=== PATIENT | male | born 1950 | race Caucasian/White ===

== ENCOUNTER → 2017-09-28 | Outpatient (CLI) | payer OTHER, MEDICARE ==
[~2017-09-28] MED LIST: GABA-113 PO; LEVO150T PO; LISI20TA3 PO; MELO-84 PO; OMEG10007 PO; PANT40TA PO; PERFLUTREN LIPID MICROSPHERE (DEFINITY) IV ONE; THEO1TAB3 PO
--- NOTE | 2017-09-28 17:06 | ECHOCARDIOGRAM REPORT ---
*NOTICE TO RECEIVING [employer]Y This information is strictly Confidential and protected under [place] law. [place] law prohibits you from making any further disclosure of this information unless further disclosure is expressly permitted by the written consent of the person to whom it pertains or is authorized by law. A general authorization for the release of medical or other information is not sufficient for this purpose. Hospital accepts no responsibility if the information is made available to any other person, INCLUDING THE PATIENT. Interpretation Summary * Name: ABHIJIT ARZOLA Study Date: 09/28/2017 12:45 PM BP: 158/77 mmHg * Patient Location: [facility] HR: 65 * : 1950 (M/d/yyyy) Gender: Male Height: 71 in * Age: 67 yrs Ethnicity: CA Weight: 300 lb * Ordering Physician: Pop Shepherd * Referring Physician: Pop Shepherd * Performed By: Mili Horn RDCS * * Reason For Study: Shortness of breath * BSA: 2.5 m2 * -- Conclusions -- * Technically difficult study despite use of Definity ultrasound contrast. * 1. Normal LV size. LVEF 60-65%. No apparent wall motion abnormalities. * 2. RV not well visualized. Size appears grossly normal. * 3. No significant valvular pathology. * 4. TR/IVC not visualized to estimate RA/PA pressures. * 5. No prior studies for comparison. Procedure Details * A complete two-dimensional transthoracic echocardiogram was performed (2D, M-mode, Doppler and color flow Doppler). * A contrast injection of Definity was performed to improve assessment of LV function. * Contrast was injected into an intravenous site in the left arm. * One vial of Definity ultrasound contrast was diluted in normal saline to a total volume of 10 ml. A total of '2' ml of solution was administered during imaging. * Lot # [id number] of Definity utilized for procedure. * Expiration date 1 NOV 22. * The attending nurse who injected the contrast agent was Jennifer Castillo RN. * The study was technically limited. * The study was technically difficult. * There were technical limitations due to patient'sPoor acoustic windows secondary to severe lung disease. Left Ventricle * The left ventricle is grossly normal size. * Ejection Fraction = 60-65%. * No regional wall motion abnormalities noted. Right Ventricle * The right ventricle is not well visualized. * The right ventricle is grossly normal size. * The right ventricular systolic function is qualitatively normal. Atria * The left atrial size is normal. * Right atrium not well visualized. * Right atrial size is normal. * No ASD detected; PFO is not assessed. Mitral Valve * The mitral valve is grossly normal. * There is no mitral valve stenosis. * Significant mitral regurgitation is absent. Tricuspid Valve * The tricuspid valve is not well visualized. * No tricuspid regurgitation. Aortic Valve * The aortic valve is not well visualized. * No hemodynamically significant valvular aortic stenosis. * There is no significant aortic regurgitation. Pulmonic Valve * The pulmonic valve is not well visualized. * Pulmonic stenosis is absent. * There is no significant pulmonary regurgitation. Great Vessels * The aortic root and proximal ascending aorta are normal sized. Pericardium/Pleural * Trivial pericardial effusion MMode 2D Measurements and Calculations Ao root diam 3.2 cm Ao root area 8.1 cm\S\2 ACS 2.3 cm asc Aorta Diam 3.2 cm LVOT diam 2.0 cm LVOT area 3.2 cm\S\2 LVAd ap4 28.0 cm\S\2 LVLd ap4 7.5 cm EDV(MOD-sp4) 82.7 ml EDV(sp4-el) 88.0 ml LVAs ap4 13.0 cm\S\2 LVLs ap4 5.9 cm ESV(MOD-sp4) 23.5 ml ESV(sp4-el) 24.6 ml EF(MOD-sp4) 71.6 % EF(sp4-el) 72.0 % LVAd ap2 26.6 cm\S\2 LVLd ap2 7.3 cm EDV(MOD-sp2) 78.1 ml EDV(sp2-el) 82.7 ml LVAs ap2 14.3 cm\S\2 LVLs ap2 6.6 cm ESV(MOD-sp2) 26.1 ml ESV(sp2-el) 26.1 ml EF(MOD-sp2) 66.5 % EF(sp2-el) 68.4 % LVLd %diff -3.60 % EDV(MOD-bp) 82.3 ml LVLs %diff 11.3 % ESV(MOD-bp) 26.2 ml EF(MOD-bp) 68.1 % SV(MOD-sp4) 59.2 ml SI(MOD-sp4) 23.6 ml/m\S\2 SV(MOD-sp2) 51.9 ml SI(MOD-sp2) 20.7 ml/m\S\2 SV(MOD-bp) 56.1 ml SI(MOD-bp) 22.4 ml/m\S\2 SV(sp4-el) 63.3 ml SI(sp4-el) 25.3 ml/m\S\2 SV(sp2-el) 56.6 ml SI(sp2-el) 22.6 ml/m\S\2 Doppler Measurements and Calculations MV E max lavon 55.5 cm/sec MV A max lavon 75.8 cm/sec MV E/A 0.73 MV dec time 0.25 sec Ao V2 max 106.4 cm/sec Ao max PG 4.5 mmHg Ao max PG (full) 1.3 mmHg BEREKET(V,A) 2.7 cm\S\2 BEREKET(V,D) 2.7 cm\S\2 LV V1 max PG 3.3 mmHg LV V1 max 90.2 cm/sec PA V2 max 85.4 cm/sec PA max PG 2.9 mmHg PA acc slope 694.0 cm/sec\S\2 PA acc time 0.11 sec PA pr(Accel) 29.0 mmHg
== END | disposition home or self-care (01) ==
LOC: C.CPL 12:40
PROVIDERS: ATTEND Internal Medicine Critical Care Medicine
DX: R06.02 Shortness of breath (principal)

== ENCOUNTER 2018-09-29 21:30 | Inpatient (IN) ==
[~2018-09-29 21:30] MED LIST changes: +ALBUT/IPRATROP 3MG/0.5MG NEB 3 ML VIAL ONE; -GABA-113 PO; -LEVO150T PO; -LISI20TA3 PO; -MELO-84 PO; -OMEG10007 PO; +OSELTAMIVIR PHOSPHATE 75 MG CAP ONE; -PANT40TA PO; -PERFLUTREN LIPID MICROSPHERE (DEFINITY) IV ONE; -THEO1TAB3 PO
[2018-09-29] MEDS ORDERED: ALBUT/IPRATROP 3MG/0.5MG NEB 3 ML VIAL NEB STA (21:42)
[2018-09-29] MEDS ORDERED: SODIUM CHLORIDE 0.9% 1000ML 500 ML IV ONE (21:44)
[2018-09-29 22:06] LABS: Basophils # (auto) 0.02 K/uL (0-0.2); Basophils % (auto) 0.4 %; Eosinophils # (auto) 0.01 K/uL (0-0.5); Eosinophils % (auto) 0.2 %; Hematocrit (blood only) 41.6 % (42-52); Hemoglobin 13.8 g/dL (14.0-18.0); Immature Granulocytes # (auto) 0.01 K/uL (0.00-0.02); Immature Granulocytes % (auto) 0.2 %; Lymphocytes # (auto) 1.04 K/uL (1.2-3.4); Lymphocytes % (auto) 22.3 %; Mean Corpuscular Hgb Conc 33.2 g/dL (32-36); Mean Corpuscular Volume 86.3 fL (80-100); Mean Platelet Volume 9.2 fL (7.4-10.4); Monocytes # (auto) 1.11 K/uL (0.11-0.59); Monocytes % (auto) 23.8 %; Neutrophils # (auto) 2.48 K/uL (1.4-6.5); Neutrophils % (auto) 53.1 %; Platelet Count 146 K/uL (130-400); RDW Coefficient of Variation 14.5 % (11.5-14.5); RDW Standard Deviation 45.8 fL (36.4-46.3); Red Blood Count 4.82 M/uL (4.7-6.1); White Blood Count 4.67 K/uL (4.8-10.8)
[2018-09-29] MEDS ORDERED: PIPERACILL/TAZOBAC CONSULT ACTIVE PRN (22:09)
[2018-09-29] MEDS ORDERED: PIPERACILLIN/TAZOBACTAM 4.5 GM/120 ML BAG IV ONE (22:09)
--- NOTE | 2018-09-29 22:09 | Emergency Department Note ---
History of Present Illness General Chief complaint: Shortness of Breath/Dyspnea Stated complaint: sob on o2, bacteria in blood History of Present Illness Maximum Pain Intensity: 0 This 68-year-old presents to the ER complaining of fever, dyspnea, cough with positive flu a and a positive blood culture from yesterday's visit Location: Generalized Quality: Aching Severity: Moderate Duration: Past few days Timing: Past few days Context: Symptoms got worse and patient had a positive blood culture and came back Modifying factors: better with nothing; worse with activity Patient denies of subjective fever and chills. No temperature was taken. He did not receive the flu vaccine. Patient denies chest pain, abdominal pain, vomiting, diarrhea. He is tolerating p.o. fluids. He chronically wears 3 L of O2. 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 Patient is willing to stay in the hospital. No history of CHF. No prior heart disease per patient. Home Medications Home Medications Medication Instructions Recorded Confirmed Type albuterol sulfate 2.5 mg INH Q6H PRN #90 ml 09/28/18 09/29/18 Rx gabapentin 300 mg PO AMHS 09/28/18 09/29/18 History levothyroxine 150 mcg PO DAILY 09/28/18 09/29/18 History lisinopril 20 mg PO DAILY 09/28/18 09/29/18 History meloxicam [Mobic] 15 mg PO DAILY 09/28/18 09/29/18 History oseltamivir [Tamiflu] 75 mg PO BID 5 Days #10 cap 09/28/18 09/29/18 Rx pantoprazole [Protonix] 40 mg PO DAILY 09/28/18 09/29/18 History theophylline [Ashutosh-24] 100 mg PO Q12 09/28/18 09/29/18 History Allergies Allergy/AdvReac Type Severity Reaction Status Date / Time codeine AdvReac Intermediate CHEST PAIN Verified 09/29/18 22:02 Past Med/Surg History Medical History GERD (gastroesophageal reflux disease) Peripheral neuropathy Hypertension Hypothyroidism COPD (chronic obstructive pulmonary disease) Diaphragm dysfunction Social History Feels Safe at Home: Yes Smoking Status: Former smoker Review of Systems All systems reviewed & are unremarkable except as noted in HPI & below Physical Exam Vital Signs Vital Signs - 24 hr 09/29/18 21:32 09/29/18 22:18 Temperature 36.6 C Temperature Source Oral Sepsis Recent Fever Within 48 Hours No Sepsis Action Taken by Nursing No Action Required Pulse Rate 95 H Pulse Rate [Right Finger] 87 Respiratory Rate 20 18 Respiratory Effort / Characteristics Non-Labored Respiratory Depth Normal Blood Pressure 129/84 Blood Pressure [Right Arm] 147/113 H Blood Pressure Mean 99 Blood Pressure Mean [Right Arm] 124 Pulse Oximetry 91 96 Oxygen Delivery Method Nasal Cannula Oxygen Flow Rate 3 VITALS: Vitals are noted on the nurse's note and reviewed by myself. Vital signs 91% O2 on 3 L. GENERAL: White male ill-appearing, wearing oxygen and coughing SKIN: The skin was without rashes, erythema, edema, or bruising. There is no tenting of the skin. Capillary reflex less than 2 seconds. HEAD: Normocephalic atraumatic. EARS: External auditory canals clear, tympanic membranes pearly mcmullen without erythema or effusion bilaterally. EYES: Pupils equal round and reactive to light and accommodation. Conjunctivae without injection, sclerae without icterus. Extraocular movements intact. NOSE: Patent, turbinates without inflammation or discharge. No sinus tenderness. MOUTH: Mucous membranes moist. Pharynx without erythema or exudate. Uvula midline. Airway patent. Tongue does not deviate. NECK: Supple without nuchal rigidity. No lymphadenopathy. No thyromegaly. Cervical spine is nontender. No JVD. HEART: Regular rate and rhythm LUNGS: Mild diffuse end expiratory wheezes, without rales or rhonchi. No retractions or accessory muscle use. ABDOMEN: Positive bowel sounds x 4. Normal tympanic percussion. Soft, nontender, without masses or organomegaly. Mars sign negative. No guarding or rebound tenderness. No CVA tenderness MUSCULOSKELETAL: No muscle atrophy, erythema, noted. NEURO: Patient was alert and oriented to person place and time. Normal sensation to light and sharp touch. No focal neurological deficits. Course Administered Medications Discontinued Medications Albuterol (Duoneb) 3 ml NEB NOW STA Stop: 09/29/18 21:43 Last Admin: 09/29/18 22:05 Dose: 3 ml Sodium Chloride (Nss 1000ml) 500 mls @ 999 mls/hr IV .Q31M ONE Stop: 09/29/18 22:14 Last Infusion: 09/29/18 22:43 Dose: 0 mls/hr Admin: 09/29/18 22:05 Dose: 999 mls/hr Piperacillin Sod/Tazobactam Sod (Zosyn) 4.5 gm in 120 mls @ 240 mls/hr IV NOW ONE Stop: 09/29/18 22:38 Last Infusion: 09/29/18 22:47 Dose: 0 mls/hr Admin: 09/29/18 22:17 Dose: 240 mls/hr Medical Decision Making Medical Records Attestation: I reviewed the patient's medical records. Home Medications Current Medication List: was personally reviewed by me Laboratory Data Attestation: I reviewed the patient's lab results. Result diagrams: 09/29/18 21:50 09/29/18 21:50 Lab Results 09/29/18 09/29/18 09/29/18 Range/Units 21:50 21:50 21:50 WBC 4.67 L (4.8-10.8) K/uL RBC 4.82 (4.7-6.1) M/uL Hgb 13.8 L (14.0-18.0) g/dL Hct 41.6 L (42-52) % MCV 86.3 (80-100) fL MCH 28.6 (25-34) pg MCHC 33.2 (32-36) g/dL RDW Std Deviation 45.8 (36.4-46.3) fL RDW Coeff of Valdemar 14.5 (11.5-14.5) % Plt Count 146 (130-400) K/uL MPV 9.2 (7.4-10.4) fL Immature Gran % (Auto) 0.2 % Neut % (Auto) 53.1 % Lymph % (Auto) 22.3 % [place]oula % (Auto) 23.8 % Eos % (Auto) 0.2 % Baso % (Auto) 0.4 % Immature Gran # (Auto) 0.01 (0.00-0.02) K/uL Neut # (Auto) 2.48 (1.4-6.5) K/uL Lymph # (Auto) 1.04 L (1.2-3.4) K/uL [place] # (Auto) 1.11 H (0.11-0.59) K/uL Eos # (Auto) 0.01 (0-0.5) K/uL Baso # (Auto) 0.02 (0-0.2) K/uL PT 11.1 (9.0-12.0) Seconds INR 1.1 (0.9-1.1) APTT 29.1 (21.0-31.0) Seconds PTT Ratio 1.1 Sodium 134 L (136-145) mmol/L Potassium 3.5 (3.5-5.1) mmol/L Chloride 98 (98-107) mmol/L Carbon Dioxide 26 (21-32) mmol/L Anion Gap 10.0 (3-11) BUN 13 (7-18) mg/dl Creatinine 0.96 (0.6-1.4) mg/dl Est Cr Clr Drug Dosing 104.6 ml/min Est GFR ( Amer) 95.1 Est GFR (Non-Af Amer) 82.0 BUN/Creatinine Ratio 13.5 (10-20) Glucose 105 H (70-99) mg/dl POC Lactic Acid Rinku (0.90-1.70) mmol/L Calcium 8.3 L (8.5-10.1) mg/dl Magnesium 2.0 (1.8-2.4) mg/dl Total Bilirubin 0.5 (0.1-1) mg/dl AST 18 (15-37) U/L ALT 23 (12-78) U/L Alkaline Phosphatase 41 L (45-117) U/L Total Creatine Kinase 217 (39-308) U/L Troponin I < 0.015 (0-0.045) ng/ml Total Protein 7.0 (6.4-8.2) gm/dl Albumin 3.5 (3.4-5.0) gm/dl Globulin 3.5 (2.5-4.0) gm/dl Albumin/Globulin Ratio 1.0 (0.9-2) TSH 1.380 (0.300-4.500) uIu/ml 09/29/18 Range/Units 21:54 WBC (4.8-10.8) K/uL RBC (4.7-6.1) M/uL Hgb (14.0-18.0) g/dL Hct (42-52) % MCV (80-100) fL MCH (25-34) pg MCHC (32-36) g/dL RDW Std Deviation (36.4-46.3) fL RDW Coeff of Valdemar (11.5-14.5) % Plt Count (130-400) K/uL MPV (7.4-10.4) fL Immature Gran % (Auto) % Neut % (Auto) % Lymph % (Auto) % [place]oul[place] % (Auto) % Eos % (Auto) % Baso % (Auto) % Immature Gran # (Auto) (0.00-0.02) K/uL Neut # (Auto) (1.4-6.5) K/uL Lymph # (Auto) (1.2-3.4) K/uL [place] # (Auto) (0.11-0.59) K/uL Eos # (Auto) (0-0.5) K/uL Baso # (Auto) (0-0.2) K/uL PT (9.0-12.0) Seconds INR (0.9-1.1) APTT (21.0-31.0) Seconds PTT Ratio Sodium (136-145) mmol/L Potassium (3.5-5.1) mmol/L Chloride (98-107) mmol/L Carbon Dioxide (21-32) mmol/L Anion Gap (3-11) BUN (7-18) mg/dl Creatinine (0.6-1.4) mg/dl Est Cr Clr Drug Dosing ml/min Est GFR ( Amer) Est GFR (Non-Af Amer) BUN/Creatinine Ratio (10-20) Glucose (70-99) mg/dl POC Lactic Acid Rinku 0.87 L (0.90-1.70) mmol/L Calcium (8.5-10.1) mg/dl Magnesium (1.8-2.4) mg/dl Total Bilirubin (0.1-1) mg/dl AST (15-37) U/L ALT (12-78) U/L Alkaline Phosphatase (45-117) U/L Total Creatine Kinase (39-308) U/L Troponin I (0-0.045) ng/ml Total Protein (6.4-8.2) gm/dl Albumin (3.4-5.0) gm/dl Globulin (2.5-4.0) gm/dl Albumin/Globulin Ratio (0.9-2) TSH (0.300-4.500) uIu/ml MDM Narrative Prior records/ancillary studies reviewed. Triage Nursing notes reviewed. Additional history obtained from the family. The patient's history was concerning for respiratory difficulties. Differential diagnosis: Etiologies such as infections, reactive airway disease, pneumonia, pneumothorax , COPD, CHF, cardiac ischemia, pulmonary embolism, musculoskeletal, gastrointestinal, as well as others were entertained. Physical examination: As above. ER treatment provided: Nebulizer, IV fluids On reassessment the patient felt better. Diagnostic interpretation by me: The electrocardiogram was negative for acute ischemic or pathologic change. Normal sinus, normal intervals, no acute ST-T wave changes. Impression normal sinus rhythm interpreted by myself I think arrhythmia is unlikely. EKG shows normal sinus rhythm with no interval abnormalities such as QT prolongation or WPW. There are no findings to suggest Brugada syndrome. Cardiac monitoring in the emergency department reveals no tachycardic or bradycardic dysrhythmia. Hypertrophic cardiomyopathy was considered but there are no clear historical elements pointing toward this. EKG is not suggestive. The QRS voltage is not extremely large and there are no suggestive Q waves. The labs revealed negative lactic acid. Stable H&H Patient had a positive blood culture gram positive cocci. Repeat cultures were drawn. The other blood culture was negative. Imaging studies: XR chest 1V portable HISTORY: Sepsis COMPARISON: Chest 09/28/2018. FINDINGS: No pneumothorax. Stable elevation of the left hemidiaphragm with left basilar linear densities suggesting atelectasis. The lungs are otherwise clear. The heart remains stable in size. No new focal lung consolidations. No evidence for pulmonary edema. IMPRESSION: No significant change compared to the prior study. No acute process. Chronic elevation of the left hemidiaphragm is again noted. Electronically signed by: Vijay Garcia M.D. 09/29/2018 10:16 PM Consultation: A consultation was placed with Dr. Morales, hospitalist. The case was discussed and diagnostics were reviewed. The patient was evaluated in the ER for further treatment. This appears to be consistent with influenza A with possible positive blood culture. Patient will be evaluated by medicine. Repeat cultures were drawn. He was medicated as above. He is agreeable treatment plan of admission. By the evaluation outlined above emergent etiologies such as CHF, cardiac ischemia , pulmonary embolism, reactive airway disease, pneumothorax, musculoskeletal, serious bacterial infections, as well as others were deemed relatively unlikely. The pt informed about the findings as listed above. All questions were answered and pleased with the treatment. Case reviewed with my attending The chart was completed utilizing [employer] Speech voice recognition software. Grammatical errors, random word insertions, pronoun errors, and incomplete sentences are an occassional consequence of this system due to software limitations, ambient noise, and hardware issues. Any formal questions or concerns about the content, text, or information contained within the body of this dictation should be directly addressed to the physician executive assistant for clarification. Impression & Plan Influenza A, Positive blood culture Discharge Plan Visit Data Chief Complaint: Shortness of Breath/Dyspnea Stated Complaint: sob on o2, bacteria in blood ED Provider: Luis Srivastava ED Midlevel Provider: Juliet Mckeon Discharge Problem: Influenza A, Positive blood culture Patient Disposition: Being Evaluated by Hospitalist Condition: Fair Forms Stand Alone Forms: My [facility] Prescriptions Prescriptions: No Action meloxicam [Mobic] 15 mg Tablet 15 mg PO DAILY RF: 0 lisinopril 20 mg Tablet 20 mg PO DAILY RF: 0 theophylline [Ashutosh-24] 100 mg Capsule,Extended Release 24hr 100 mg PO Q12 RF: 0 pantoprazole [Protonix] 40 mg Tablet,Delayed Release (Dr/Ec) 40 mg PO DAILY RF: 0 levothyroxine 150 mcg Tablet 150 mcg PO DAILY RF: 0 gabapentin 300 mg Capsule 300 mg PO AMHS RF: 0 oseltamivir [Tamiflu] 75 mg capsule 75 mg PO BID 5 Days Qty: 10 RF: 0 albuterol sulfate 2.5 mg /3 mL (0.083 %) solution for nebulization 2.5 mg INH Q6H PRN (Reason: bronchospasm) Qty: 90 RF: 0 Referrals Referrals: Jovanna Carson [Primary Care Provider] -
--- NOTE | 2018-09-29 22:17 | XRay Report ---
XR chest 1V portable HISTORY: Sepsis COMPARISON: Chest 09/28/2018. FINDINGS: No pneumothorax. Stable elevation of the left hemidiaphragm with left basilar linear densit ies suggesting atelectasis. The lungs are otherwise clear. The heart remains stable in size. No new f ocal lung consolidations. No evidence for pulmonary edema. IMPRESSION: No significant change compared to the prior study. No acute process. Chronic elevation of the left he midiaphragm is again noted. Electronically signed by: Vijay Garcia M.D. 09/29/2018 10:16 PM
[2018-09-29 22:18] LABS: INR 1.1 (0.9-1.1); Partial Thromboplastin Ratio 1.1; Partial Thromboplastin Time 29.1 Seconds (21.0-31.0); Prothrombin Time 11.1 Seconds (9.0-12.0)
[2018-09-29 22:20] LABS: Alanine Aminotransferase 23 U/L (12-78); Albumin Level 3.5 gm/dl (3.4-5.0); Aspartate Aminotransferase 18 U/L (15-37); BUN Creatinine Ratio 13.5 (10-20); Blood Urea Nitrogen 13 mg/dl (7-18); Calcium 8.3 mg/dl (8.5-10.1); Carbon Dioxide 26 mmol/L (21-32); Chloride 98 mmol/L (98-107); Creatinine Clr Calc Pharmacy 104.6 ml/min; Est GFR (African American) 95.1; Glucose 105 mg/dl (70-99); Potassium 3.5 mmol/L (3.5-5.1); Sodium 134 mmol/L (136-145)
[2018-09-29 22:30] LABS: Alkaline Phosphatase 41 U/L (45-117); Bilirubin,Total 0.5 mg/dl (0.1-1); Creatine Kinase 217 U/L (39-308); Globulin 3.5 gm/dl (2.5-4.0); Troponin I < 0.015 ng/ml (0-0.045)
--- NOTE | 2018-09-29 23:20 | Emergency Department Note ---
ED Visit Note This Patient was discussed with the physician collections assistant, DONALDO Omalley. The pertinent historical and physical exam findings were confirmed. I agree with the studies ordered and with the interpretations of these studies. I agree with the disposition and care plan. .
--- NOTE | 2018-09-30 00:54 | History & Physical Report ---
Date of Service September 30, 2018 Assessment & Plan (1) Positive blood culture: Mr. 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 Patient was also found to be positive for influenza yesterday. -Admit to med/surg -pt has had one positive blood culture, growing gram-positive cocci in the anaerobic bottle. Possibly contamination, however interesting given it is growing in anaerobic bottle -Given a dose of IV Zosyn in the emergency department. We will continue IV Zosyn, and add 1 dose of vancomycin to cover for MRSA -Consult infectious diseases -Blood cultures redrawn today and pending -Unsure of source of infection - chest x-ray without evidence for pneumonia. No urinary symptoms, however will order a UA. 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 Patient is unsure about mechanical ventilation, recommend further discussion tomorrow. Disposition: Admit to med/surg F/E/N: Regular diet. No IV fluids at this time. History of Present Illness Primary Care Provider: Jovanna Carson Mr. 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 He had presented to the emergency department with a 2-week history of shortness of breath yesterday and was diagnosed with influenza. He had 2 blood cultures drawn at that time, 1 of which is now growing gram-positive cocci in the anaerobic bottle. He was called with the results, and given the option of coming back to the hospital. He states that he had a bad night, his breathing was difficult and he felt like he couldn't relax yesterday. He wears oxygen [id number] at home, and was saturating well on his usual 3L at home. He remains with a cough, productive of minimal sputum. He denies fever or chills, but states that he has felt more tired recently. He also notes decreased appetite. He has no other complaints at this time. Allergies Allergy/AdvReac Type Severity Reaction Status Date / Time codeine AdvReac Intermediate CHEST PAIN Verified 09/29/18 22:02 Home Medications Home Medications Medication Instructions Recorded Confirmed Type albuterol sulfate 2.5 mg INH Q6H PRN #90 ml 09/28/18 09/29/18 Rx gabapentin 300 mg PO AMHS 09/28/18 09/29/18 History levothyroxine 150 mcg PO DAILY 09/28/18 09/29/18 History lisinopril 20 mg PO DAILY 09/28/18 09/29/18 History meloxicam [Mobic] 15 mg PO DAILY 09/28/18 09/29/18 History oseltamivir [Tamiflu] 75 mg PO BID 5 Days #10 cap 09/28/18 09/29/18 Rx pantoprazole [Protonix] 40 mg PO DAILY 09/28/18 09/29/18 History levofloxacin 750 mg PO DAILY 5 Days #5 tab 09/30/18 Rx theophylline 400 mg PO DAILY 09/30/18 09/30/18 History Past Med/Surg History Medical History GERD (gastroesophageal reflux disease) Peripheral neuropathy Hypertension Hypothyroidism COPD (chronic obstructive pulmonary disease) Diaphragm dysfunction Social History Current Living Situation: Spouse Other Information That Helps Us Care for You: No Feels Safe at Home: Yes Safety Concerns: Feels Safe At This Time Smoking Status: Former smoker Do You Dip or Chew Tobacco: No Hx Alcohol Use: No Hx Substance Use: No Beliefs That Will Affect Care: None Preferred Language: Hong Konger Review of Systems Constitutional: + fatigue, + malaise, + weakness and + anorexia; no fever and no chills Ear, Nose, Mouth, Throat: + dry mouth and + sore throat Respiratory: + cough and + dyspnea; no hemoptysis Cardiovascular: no chest pain, no palpitations, no syncope, no edema and no calf pain Gastrointestinal: no abdominal pain, no nausea, no vomiting and no change in bowel habits Genitourinary (Male): no dysuria and no urinary frequency Physical Exam 2 Vital Signs (Past 24 Hours): Last Vital Signs Temp 36.6 C 09/29/18 23:17 Pulse 88 09/29/18 23:17 Resp 20 09/29/18 23:17 BP 126/77 09/29/18 23:17 Pulse Ox 99 09/29/18 23:17 Physical Exam: Constitutional: WD/WN, vitals as above + ill appearing ( chronically) and + well hydrated; no acute distress raspy voice ENMT: Neck with left-sided postsurgical changes Respiratory: normal respiratory effort; no respiratory distress, no labored breathing and no cough Auscultation: + breath sounds absent (Over left lung base) and + diminished lung sounds (On the right side of lung and left upper lung); scattered expiratory wheezing over right lung Cardiovascular: RRR, no murmur, no edema Gastrointestinal (Abdomen): Percussion/Palpation: abdomen soft; abdomen nontender, no guarding and abdomen not rigid Results & Data Laboratory Results Laboratory Results - last 24 hr 09/29/18 09/29/18 09/29/18 21:50 21:50 21:50 WBC 4.67 L RBC 4.82 Hgb 13.8 L Hct 41.6 L MCV 86.3 MCH 28.6 MCHC 33.2 RDW Std Deviation 45.8 RDW Coeff of Valdemar 14.5 Plt Count 146 MPV 9.2 Immature Gran % (Auto) 0.2 Neut % (Auto) 53.1 Lymph % (Auto) 22.3 Mcpherson % (Auto) 23.8 Eos % (Auto) 0.2 Baso % (Auto) 0.4 Immature Gran # (Auto) 0.01 Neut # (Auto) 2.48 Lymph # (Auto) 1.04 L Mcpherson # (Auto) 1.11 H Eos # (Auto) 0.01 Baso # (Auto) 0.02 PT 11.1 INR 1.1 APTT 29.1 PTT Ratio 1.1 Sodium 134 L Potassium 3.5 Chloride 98 Carbon Dioxide 26 Anion Gap 10.0 BUN 13 Creatinine 0.96 Est Cr Clr Drug Dosing 104.6 Est GFR ( Amer) 95.1 Est GFR (Non-Af Amer) 82.0 BUN/Creatinine Ratio 13.5 Glucose 105 H POC Lactic Acid Rinku Calcium 8.3 L Magnesium 2.0 Total Bilirubin 0.5 AST 18 ALT 23 Alkaline Phosphatase 41 L Total Creatine Kinase 217 Troponin I < 0.015 Total Protein 7.0 Albumin 3.5 Globulin 3.5 Albumin/Globulin Ratio 1.0 TSH 1.380 09/29/18 21:54 WBC RBC Hgb Hct MCV MCH MCHC RDW Std Deviation RDW Coeff of Valdemar Plt Count MPV Immature Gran % (Auto) Neut % (Auto) Lymph % (Auto) Mcpherson % (Auto) Eos % (Auto) Baso % (Auto) Immature Gran # (Auto) Neut # (Auto) Lymph # (Auto) Mcpherson # (Auto) Eos # (Auto) Baso # (Auto) PT INR APTT PTT Ratio Sodium Potassium Chloride Carbon Dioxide Anion Gap BUN Creatinine Est Cr Clr Drug Dosing Est GFR ( Amer) Est GFR (Non-Af Amer) BUN/Creatinine Ratio Glucose POC Lactic Acid Rinku 0.87 L Calcium Magnesium Total Bilirubin AST ALT Alkaline Phosphatase Total Creatine Kinase Troponin I Total Protein Albumin Globulin Albumin/Globulin Ratio TSH Supervising Physician Co-Signing Physician Notes Attending addendum: I have physically seen this patient, have supervised the medical residents activities, and agree with the H&P unless as otherwise noted. Assessment and Plan: Influenza A/positive blood culture-- Patient had been seen in the ED the previous evening, and had significant improvement after receiving symptomatic treatment for influenza A with Tamiflu and nebulizer treatment, and was thus discharged home. 1 out of 2 blood cultures returned positive for gram-positive cocci in clusters in the anaerobic bottle. When patient was called at home today, he did report that he was feeling a little bit worse, and was advised to come to the emergency department to be reassessed, and the plan is to admit patient to nonmonitored bed. Continue Tamiflu 75 mg p.o. twice daily, renally adjusted dosing. Duonebs every 4 hours while awake and every 2 hours when necessary.. Given Zosyn IV in the ED, which will be continued. Give a loading dose of vancomycin IV tonight, until identity of organism in blood cultures identified as to whether contaminant or not. Remainder of orders and notations as noted.
[2018-09-30] MEDS ORDERED: ACETAMINOPHEN 325 MG TAB PO PRN (01:46)
[2018-09-30] MEDS ORDERED: VANCOMYCIN CONSULT ACTIVE PRN (01:46)
[2018-09-30] MEDS ORDERED: ALBUT/IPRATROP 3MG/0.5MG NEB 3 ML VIAL NEB PRN (01:46)
[2018-09-30] MEDS ORDERED: VANCOMYCIN HCL 2,750 MG in SODIUM CHLORIDE 0.9% 500 ML IV ONE (01:46)
[2018-09-30] MEDS ORDERED: PIPERACILLIN/TAZOBACTAM 4.5 GM in DEXTROSE 5% 100 ML IV SCH (04:00)
[2018-09-30] MEDS ORDERED: LEVOTHYROXINE SODIUM 150 MCG TABLET PO SCH (06:30)
[2018-09-30] MEDS ORDERED: PNEUMOCOCCAL POLYSACCHARIDES 25 MCG/0.5 ML VIAL/SYR IM ONE (07:15)
[2018-09-30] MEDS ORDERED: PNEUMOCOCCAL ADMINISTRATION CHARGE ONE (07:15)
[2018-09-30] MEDS ORDERED: INFLUENZA ADMINISTRATION CHARGE ONE (07:15)
[2018-09-30] MEDS ORDERED: INFLUENZA VACCINE HIGH DOSE 65+ 0.5 ML SYR IM ONE (07:15)
[2018-09-30] MEDS ORDERED: ENOXAPARIN INJ 40 MG/0.4 ML SYR SQ SCH (08:00)
--- NOTE | 2018-09-30 08:33 | Pharmacy Report ---
Pharmacy Abx Initial Consult - Date of Service September 30, 2018 - Pharmacy Dosing Scope Date of Consult: 09/30/18 Consultation requested by: Dr. Lopez Pharmacy is consulted to initiate vancomycin/Zosyn IV dosing therapy, order appropriate labs and adjust drug dose/frequency. - Subjective The patient is a 68 year old M admitted on 09/30/18 for one of two positive blood cultures. Of note, patient also diagnosed with the flu during ER visit yesterday. - Objective Height: 5 ft 11 in Weight: 139.7 kg Vital Signs (Past 12hrs): Vital Signs Temp Pulse Pulse Resp BP BP Pulse Ox 09/30/18 07:43 36.8 C 81 20 110/79 96 09/30/18 03:22 37.1 C 87 18 123/83 94 09/30/18 01:09 78 18 114/79 98 09/29/18 23:17 36.6 C 88 20 126/77 99 09/29/18 22:18 87 18 147/113 H 96 09/29/18 21:32 36.6 C 95 H 20 129/84 91 Lab Results (24hrs): Laboratory Tests (24 Hours) 09/29/18 09/29/18 21:50 21:50 WBC 4.67 L Neut # (Auto) 2.48 Creatinine 0.96 Est Cr Clr Drug Dosing 104.6 Total Creatine Kinase 217 Micro Results: 09/29/18 22:05 Blood Culture - Pending Blood 09/29/18 21:50 Blood Culture - Pending Blood - Assessment & Plan Assessment 68 year old M with one of two blood cultures from 09-28-18 positive with GPCs. Plan vancomycin/Zosyn for treatment of positive blood culture and possible respiratory infection. Vancomycin IV * Estimated PK Parameters: Vd 0.6 L/kg, Romeo 0.087 hr-1, t1/2 8 hr * Loading dose: 2750 mg (21 mg/kg) * Maintenance dose: 1750 mg IV (13 mg/kg) every 8 hours * Goal trough level for bacteremia : 15 to 20 mcg/mL * Trough level ordered for 10/01/18 * A less than traditional dose has been selected due to likelihood of drug accumulation in obese patient. Piperacillin/tazobactam * 4.5 g bolus administered over 30 minutes, then 4.5 g IV extended infusion every 8 hours for CrCl greater than 20 mL/min * Aggressive dosing selected due to BMI 35 or more. Pharmacy will continue to follow and will adjust dose/frequency as necessary. Thank you.
[2018-09-30] MEDS ORDERED: PANTOprazole 40 MG TAB PO SCH (09:00)
[2018-09-30] MEDS ORDERED: GABAPENTIN 300 MG CAP PO SCH ×2 (09:00→13:00)
[2018-09-30] MEDS ORDERED: OSELTAMIVIR PHOSPHATE 75 MG CAP PO SCH (09:00)
[2018-09-30] MEDS ORDERED: MELOXICAM 7.5 MG TAB PO SCH ×2 (09:00→21:00)
[2018-09-30] MEDS ORDERED: LISINOPRIL 20 MG TAB PO SCH (09:00)
[2018-09-30] MEDS ORDERED: THEOPHYLLINE 400MG CONTROLLED REL TAB PO SCH (09:00)
[2018-09-30] MEDS ORDERED: THEOPHYLLINE 400 MG EXTENDED REL TAB PO SCH (09:00)
[2018-09-30] MEDS ORDERED: Nursing to Pharmacy Communication ONE (09:51)
[2018-09-30] MEDS ORDERED: VANCOMYCIN HCL 1,750 MG in SODIUM CHLORIDE 0.9% 500 ML IV SCH (10:00)
--- NOTE | 2018-09-30 10:16 | Infectious Disease Consult ---
Date of Consultation September 30, 2018 Assessment & Plan (1) Influenza A: continue tamiflu as previously planned (2) Positive blood culture: suspect skin contaminant. can stop IV abx from ID standpoint. ok for d/c when otherwise stable. 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 has h/p COPD. Flu swab + Influenza A. was given Tamiflu and d/c home. pt cxr negative. blood cultures done on 09/28 - 1/2 sets + 09/29 - was called and instructed to return to ER for IV abx, admitted yesterday, started on zosyn and vanco. repeat blood cultures obtained, pending. 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 afebrile. OOB to chair on my exam. states feeling much better today. afebrile. tolerating abx. some cough, but improved. occansional white sputum, no blood. no cp, no sob. on [place] O2. no n/v/d/abd pain, apetite stable. no gu symptoms. denies sick contacts afebrile since admission, wbc 4.6 Allergies Allergy/AdvReac Type Severity Reaction Status Date / Time codeine AdvReac Intermediate CHEST PAIN Verified 09/29/18 22:02 Home Medications Home Medications Medication Instructions Recorded Confirmed Type albuterol sulfate 2.5 mg INH Q6H PRN #90 ml 09/28/18 09/29/18 Rx gabapentin 300 mg PO AMHS 09/28/18 09/29/18 History levothyroxine 150 mcg PO DAILY 09/28/18 09/29/18 History lisinopril 20 mg PO DAILY 09/28/18 09/29/18 History meloxicam [Mobic] 15 mg PO DAILY 09/28/18 09/29/18 History oseltamivir [Tamiflu] 75 mg PO BID 5 Days #10 cap 09/28/18 09/29/18 Rx pantoprazole [Protonix] 40 mg PO DAILY 09/28/18 09/29/18 History theophylline [Ashutosh-24] 400 mg PO DAILY 09/30/18 09/30/18 History Patient History Medical History GERD (gastroesophageal reflux disease) Peripheral neuropathy Hypertension Hypothyroidism COPD (chronic obstructive pulmonary disease) Diaphragm dysfunction Social History Current Living Situation: Spouse Other Information That Helps Us Care for You: No Feels Safe at Home: Yes Safety Concerns: Feels Safe At This Time Smoking Status: Former smoker Do You Dip or Chew Tobacco: No Hx Alcohol Use: No Hx Substance Use: No Beliefs That Will Affect Care: None Preferred Language: Nauruan Communication Ability: Effective Recenterer Required: No Review of Systems all remaining ros reviewed and are negative. Physical Exam 2 Vital Signs (Past 24 Hours): Last Vital Signs Temp 36.8 C 09/30/18 07:43 Pulse 81 09/30/18 07:43 Resp 20 09/30/18 07:43 BP 110/79 09/30/18 07:43 Pulse Ox 96 09/30/18 07:43 Constitutional: WD/WN, vitals as above Eyes: PERRL, conjunctivae normal, anicteric sclerae ENMT: external ear and nose normal, oropharynx normal Neck: normal visual inspection Respiratory: normal respiratory effort, lungs clear to auscultation Auscultation: + diminished lung sounds; no crackles, no rales, no rhonchi and no wheezes Cardiovascular: RRR, no murmur, no edema Gastrointestinal (Abdomen): normal bowel sounds, soft, nontender, no hepatosplenomegaly Musculoskeletal: no cyanosis or clubbing, extremities motor strength 5/5 Skin: no rashes, warm and dry Psychiatric: A+Ox3, euthymic affect
[2018-10-01] MEDS ORDERED: VANCOMYCIN TROUGH ONE (09:30)
--- NOTE | 2018-10-06 21:43 | Discharge Summary ---
Date of Service September 30, 2018 Admission HPI Per Admitting Provider Mr. 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 He had presented to the emergency department with a 2-week history of shortness of breath yesterday and was diagnosed with influenza. He had 2 blood cultures drawn at that time, 1 of which is now growing gram-positive cocci in the anaerobic bottle. He was called with the results, and given the option of coming back to the hospital. He states that he had a bad night, his breathing was difficult and he felt like he couldn't relax yesterday. He wears oxygen [id number] at home, and was saturating well on his usual 3L at home. He remains with a cough, productive of minimal sputum. He denies fever or chills, but states that he has felt more tired recently. He also notes decreased appetite. He has no other complaints at this time. Principal Diagnosis Positive blood culture, coag negative staph species Discharge Exam Constitutional WD/WN, vitals as above + obese Eyes PERRL, conjunctivae normal, anicteric sclerae ENMT external ear and nose normal, oropharynx normal Neck trachea midline, no thyromegaly Respiratory normal respiratory effort and + cough; no respiratory distress Auscultation: + wheezes (faint, end exhalation) Cardiovascular RRR, no murmur, no edema Gastrointestinal (Abdomen) normal bowel sounds, soft, nontender, no hepatosplenomegaly Musculoskeletal no cyanosis or clubbing, extremities motor strength 5/5 Skin no rashes, warm and dry Neurologic patellar DTR's 2+ bilat, sensation intact and PERRL, EOMI, accommodation nl, no face palsy, no dysarthria Psychiatric A+Ox3, euthymic affect Lymphatic no cervical or axillary lymphadenopathy Discharge Data Allergies Allergy/AdvReac Type Severity Reaction Status Date / Time codeine AdvReac Intermediate CHEST PAIN Verified 09/29/18 22:02 Consultations 09/29/18 22:26 ED Decision to Admit Stat 09/30/18 01:46 Consult Infectious Diseases Routine Hospital Course (1) Positive blood culture: Mr. 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 Patient was also found to be positive for influenza yesterday. initially covered with Zosyn and Vancomycin blood culture grew out 1 out of 4 bottles coag negative staph likely just a contaminant since patient felt well repeat cultures on 09/29 showed no growth discharged to home since patient was feeling well (2) Influenza A: continue Tamiflu, complete 5 days total specific instructions given, if cough becomes more productive, if patient develops fever then he should fill a script for Levaquin and complete 5 days of treatment (3) COPD (chronic obstructive pulmonary disease): -Continue oxygen as needed to maintain saturations greater than 92% -Continue theophylline, level normal (4) Diaphragm dysfunction: -As above -Per patient, his phrenic nerve was cut during a head and neck surgery, with 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 Disposition: Admit to med/surg F/E/N: Regular diet. No IV fluids at this time. Total Time Total Time Spent Total Time Spent (In Minutes): 35 minutes Total Time Includes: Examination of the Patient, Discharge Planning and Medication Reconciliation Discharge Plan Discharge Items Patient Disposition: Home - Self-Care Reason For Visit: INFLUENZA, HYPOXIA, POSITIVE BLOOD CULTURE Discharge Diagnosis: Influenza A Blood culture positive for coag negative staph, only one bottle, likely contaminant Condition: Good Discharge Goals: Decrease discomfort and Improve disease control Activity: Resume your previous activity Lifting: None and Gradually increase as tolerated Bathing: No limitations Exercise/Sports: Gradually increase as tolerated Exercise Comment: get rest for a few days to recover from the flu Driving/Machine Use: No limitations Non-emergency contact: Primary Care Provider Call non-emergency contact if: you have any medication questions, your symptoms worsen and you have a fever Diet: Regular Addtl Provider Instructions: Medications: - TAMIFLU: complete the course as originally prescribed for Influenza A - LEVAQUIN: antibiotic for possible superimposed bacterial infection, see below Influenza A: complete Tamiflu, get plenty of rest and stay well hydrated as we discussed, sometimes having the flu will set you up for superimposed bacterial pneumonia signs that you might have bacterial pneumonia would be fever, more sputum production, darker/thicker sputum production if this happens then you should fill the script for Levaquin, take for 5 days Positive blood culture: only one of two bottles, coag negative staph which is a skin bacteria, likely a contaminant no follow up needed FOLLOW UP - need to call for appointment with Jovanna Carson next week Prescriptions: Continue meloxicam [Mobic] 15 mg Tablet 15 mg PO DAILY RF: 0 lisinopril 20 mg Tablet 20 mg PO DAILY RF: 0 pantoprazole [Protonix] 40 mg Tablet,Delayed Release (Dr/Ec) 40 mg PO DAILY RF: 0 levothyroxine 150 mcg Tablet 150 mcg PO DAILY RF: 0 gabapentin 300 mg Capsule 300 mg PO AMHS RF: 0 albuterol sulfate 2.5 mg /3 mL (0.083 %) solution for nebulization 2.5 mg INH Q6H PRN (Reason: bronchospasm) Qty: 90 RF: 0 theophylline 400 mg capsule,extended release 24hr 400 mg PO DAILY RF: 0 Visit Report Forms: [facility] Portal Stand-Alone Forms: [facility] Discharge Orders: Discharge Order (Routine); Ordered 09/30/18 Ordered By: Joel Lord Admission Data Admit Date/Time: 09/30/18 01:01 Attending Provider: Joel Lord Admit Provider: Keila Lopez Primary Care Provider: Jovanna Carson Other Providers: Keila Lopez ; Amy Del Angel Service: Medical Other Interventions: Discharge Summary Assessment (RN) Last Done: 09/30/18 11:54 DC Date/Time DO NOT enter until pt leaves facility: 09/30/18 12:15
[2018-10-07] MEDS ORDERED: OXYCODONE/ACETAMINOPHEN 5mg/325mg TAB ONE (10:47)
== END 2018-09-30 12:15 | disposition home or self-care (01) | DRG 872 ==
LOC: ED 21:30 → 4E 09-30 01:01 → SUATTDRO 09-30 01:01 → 4E 09-30 01:21
DX: G62.9 Polyneuropathy, unspecified; I10 Essential (primary) hypertension; Z88.5 Allergy status to narcotic agent; K21.9 Gastro-esophageal reflux disease without esophagitis; Z79.899 Other long term (current) drug therapy; Z99.81 Dependence on supplemental oxygen; E03.9 Hypothyroidism, unspecified; J98.6 Disorders of diaphragm; Z87.891 Personal history of nicotine dependence; J10.1 Influenza due to other identified influenza virus with other respiratory manifestations; Z79.1 Long term (current) use of non-steroidal anti-inflammatories (NSAID); R78.81 Bacteremia; J44.9 Chronic obstructive pulmonary disease, unspecified

== ENCOUNTER 2022-09-06 01:45 | Observation (INO) ==
[2022-09-06 02:27] LABS: Basophils # (auto) 0.04 K/uL (0-0.2); Basophils % (auto) 0.4 %; Eosinophils # (auto) 0.33 K/uL (0-0.50); Eosinophils % (auto) 3.1 %; Hematocrit (blood only) 45.5 % (40.1-51.0); Hemoglobin 14.1 g/dl (14.0-18.0); Immature Granulocytes # (auto) 0.04 K/uL (0.00-0.02); Immature Granulocytes % (auto) 0.4 %; Lymphocytes % (auto) 8.6 %; Mean Corpuscular Volume 93.6 fL (80.0-100.0); Mean Platelet Volume 9.4 fL (9.4-12.4); Monocytes # (auto) 0.76 K/uL (0.24-0.82); Monocytes % (auto) 7.2 %; Neutrophils # (auto) 8.43 K/uL (1.4-6.5); Neutrophils % (auto) 80.3 %; Platelet Count 164 K/uL (130-400); RDW Coefficient of Variation 13.6 % (11.5-14.5); RDW Standard Deviation 46.6 fL (36.4-46.3); Red Blood Count 4.86 M/uL (4.63-6.08)
[2022-09-06 02:51] LABS: Influenza A virus by PCR Negative (Neg); Influenza B virus by PCR Negative (Neg); RSV by PCR Negative (Neg); SARS CoV2 RNA(COVID-19) Ceph NEGATIVE (Negative)
[2022-09-06 02:56] LABS: Alanine Aminotransferase 12 U/L (7-52); Albumin Globulin Ratio 1.4 (0.9-2); Alkaline Phosphatase 48 U/L (34-104); Anion Gap 1 (3-11); Aspartate Aminotransferase 11 U/L (13-39); BUN Creatinine Ratio 20.7 (10-20); Bilirubin Direct 0.1 mg/dl (0-0.2); Bilirubin,Total 0.5 mg/dl (0.2-1.0); Blood Urea Nitrogen 17 mg/dl (6-23); Calcium 9.1 mg/dl (8.5-10.1); Carbon Dioxide 45 mmol/L (21-32); Chloride 98 mmol/L (98-107); Est GFR (African American) 103.8 ml/min; Est GFR (Non-African American) 89.6 ml/min; Globulin 2.8 gm/dl (2.5-4.0); Glucose 131 mg/dl (70-99(Fasting)); Magnesium 1.9 mg/dl (1.7-2.4); Potassium 4.4 mmol/L (3.5-5.1); Sodium 144 mmol/L (136-145); Total Protein 6.8 gm/dl (6.0-8.3); Troponin I High Sensitivity 6.1 pg/ml (0-20)
[2022-09-06 03:16] LABS: Base Excess VBG 19.6 mEq/L; HCO3 VBG 51 mmol/L; Oxygen Saturation VBG < 60.0 %; PCO2 VBG 94 mmHg (38-50); PO2 VBG 33 mmHg; pH VBG 7.34 (7.36-7.41)
[2022-09-06 04:17] LABS: Appearance Urine Clear (Clear); Bacteria Urine Automated Negative (Negative); Bilirubin Urine Negative (Negative); Blood Urine 2+ (Negative); Color Urine Yellow; Glucose Urine UA Negative (Negative); Ketones Urine Negative (Negative); Leukocyte Esterase Urine Negative (Negative); Nitrite Urine Negative (Negative); Protein Urine Negative (Negative); Specific Gravity Urine 1.018 (1.000-1.030); Urobilinogen Urine Negative (Negative)
[2022-09-06] MEDS ORDERED: PIPERACILLIN/TAZOBACTAM 4.5 GM/120 ML BAG IV ONE (04:41)
--- NOTE | 2022-09-06 05:29 | History & Physical Report ---
Date of Service September 06, 2022 Assessment & Plan (1) Pneumonia: Plan: 72yo male with one week of progressive dyspnea, cough productive for yellow/clear sputum and increased oxygen requirement. CT of the chest with chronic elevation of left hemidiaphragm and possible developing RLL PNA. Patient most likely with chronic aspiration. He takes nutrition primarily through his PEG tube but some oral intake as well. He is presently breathing comfortably. Saturations are adequate on 6L NC -Admit to medical -Follow cultures -Continue Zosyn for PNA, possible aspiration -Supplemental O2 -Prednisone 40mg taper -Mucinex 1200mg po BID -Duonebs -Albuterol (2) GERD (gastroesophageal reflux disease): Plan: Chronic -Continue Protonix (3) Hypertension: Plan: Blood pressure mildly elevated at present -Continue Lisinopril 20mg po daily (4) Hypothyroidism: Plan: Chronic. -Check TSH -Continue Synthroid (5) COPD (chronic obstructive pulmonary disease): Plan: Chronic. Suspect mild exacerbation in setting of PNA -Prednisone 40mg taper -DuoNebs -Albuterol PRN History of Present Illness Chief Complaint: SOB Primary Care Provider: SEMAJ Blair Kelsey Rush is a 72yo male with history of COPD, diaphragmatic paralysis following a neck surgery, GERD and HTN. Patient uses 3L of O2 at home chronically. He reports approximately one week of worsening shortness of breath and cough productive for clear/yellow phlegm. This evening around 22:00 he became more short of breath which prompted him to come to the ER. Patient denies fever, chills, abdominal pain, nausea, vomiting, diarrhea or constipation. He feels improved now. Patient has a PEG tube in place. He receives Boost 4 cans daily. He eats some things by mouth - liquids, soft and pureed foods. In the ER he is afebrile, mildly hypertensive, tachypneic at 29bpm, saturation of 96% on 6L NC ER Course: Zosyn Allergies Allergy/AdvReac Type Severity Reaction Status Date / Time codeine Allergy Severe Chest pain Verified 08/12/22 12:59 amoxicillin [From Augmentin] Allergy Verified 08/12/22 12:59 clavulanic acid Allergy Verified 08/12/22 12:59 [From Augmentin] levofloxacin [From Levaquin] AdvReac Intermediate Severe Verified 08/12/22 12:59 ankle muscle pain budesonide AdvReac Mild Thrush Verified 08/12/22 12:59 fluticasone AdvReac Mild Thrush Verified 08/12/22 12:59 [From Advair Diskus] salmeterol AdvReac Mild Thrush Verified 08/12/22 12:59 [From Advair Diskus] Home Medications Medication Instructions Recorded Confirmed Type pantoprazole 40 mg tablet,delayed 40 mg PO QAM 09/28/18 09/06/22 History release (Protonix) tramadol 50 mg tablet 50 mg PO HS 04/22/20 08/12/22 History Oxygen .Route 05/21/22 08/12/22 History albuterol sulfate 90 mcg/actuation 2 puff inhalation QID PRN 05/21/22 09/06/22 History aerosol inhaler shortness of breath or wheezing gabapentin 300 mg capsule 300 mg PO QAM 05/21/22 09/06/22 History gabapentin 300 mg capsule 600 mg PO QPM 05/21/22 09/06/22 History levothyroxine 175 mcg tablet See Rx Instructions PO DAILY 05/21/22 09/06/22 History lisinopril 20 mg tablet 20 mg PO QAM 05/21/22 09/06/22 History meloxicam 15 mg tablet (Mobic) 15 mg PO QPM PRN Pain 05/21/22 09/06/22 History mupirocin 2 % topical ointment 1 applic topical TID PRN 05/21/22 08/12/22 History diltiazem HCl 30 mg tablet 30 mg PO Q8H #90 tabs 07/13/22 08/12/22 Rx Past Med/Surg History Medical History Arthritis BPH (benign prostatic hyperplasia) Claustrophobia COPD (chronic obstructive pulmonary disease) Degenerative disc disease Diaphragmatic paralysis Dysphagia G tube feedings GERD (gastroesophageal reflux disease) History of aspiration pneumonia History of cancer tonsil Hypertension Hypothyroidism Obesity On home oxygen therapy Sleep apnea Surgical History History of colonoscopy History of difficult intubation History of esophagogastroduodenoscopy (EGD) History of tooth extraction Hx of excision of mass S/P percutaneous endoscopic gastrostomy (PEG) tube placement Family History Other Hypertension Lung disease No family history of adverse response to anesthesia Social History Smoking Status: Former smoker Second Hand Exposure: No; Hx Alcohol Use: Yes Alcohol type: beer, wine and hard liquor Hx Substance Use: Yes Substance Use Type Other:: cannibis oil Preferred Language: Russian Communication Ability: Effective 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 0) 09/06/22 02:14 MCHC 31.0 g/dL (32.0-3 6.0) L 09/06/22 02:14 RDW Std Deviation 46.6 fL (36.4-46. 3) H 09/06/22 02:14 RDW Coeff of Valdemar 13.6 % (11.5-14.5 ) 09/06/22 02:14 Plt Count 164 K/uL (130-400 ) 09/06/22 02:14 MPV 9.4 fL (9.4-12.4) 09/06/22 02:14 Immature Gran % (A uto) 0.4 % 09/06/22 02:14 Neut % (Auto) 80.3 % 09/06/22 02:14 Lymph % (Auto) 8.6 % 09/06/22 02:14 [place] % (Auto) 7.2 % 09/06/22 02:14 Eos % (Auto) 3.1 % 09/06/22 02:14 Baso % (Auto) 0.4 % 09/06/22 02:14 Neut # (Auto) 8.43 K/uL (1.4-6. 5) H 09/06/22 02:14 Lymph # (Auto) 0.90 K/uL (1.2-3. 4) L 09/06/22 02:14 [place] # (Auto) 0.76 K/uL (0.24-0 .82) 09/06/22 02:14 Eos # (Auto) 0.33 K/uL (0-0.50 ) 09/06/22 02:14 Baso # (Auto) 0.04 K/uL (0-0.2) 09/06/22 02:14 Immature Gran # (A uto) 0.04 K/uL (0.00-0 .02) H 09/06/22 02:14 VBG pH 7.34 (7.36-7.41) L 09/06/22 03:11 VBG pCO2 94 mmHg (38-50) H 09/06/22 03:11 VBG pO2 33 mmHg 09/06/22 03:11 VBG HCO3 51 mmol/L 09/06/22 03:11 VBG O2 Saturation < 60.0 % 09/06/22 03:11 VBG Base Excess 19.6 mEq/L 09/06/22 03:11 Sodium 144 mmol/L (136-1 45) 09/06/22 02:14 Potassium 4.4 mmol/L (3.5-5 .1) 09/06/22 02:14 Chloride 98 mmol/L (98-107 ) 09/06/22 02:14 Carbon Dioxide 45 mmol/L (21-32) H* 09/06/22 02:14 Anion Gap 1 (3-11) L 09/06/22 02:14 BUN 17 mg/dl (6-23) 09/06/22 02:14 Creatinine 0.82 mg/dl (0.6-1 .4) 09/06/22 02:14 Est Cr Clr Drug Do sing Not Reportable 09/06/22 02:14 Est GFR ( A wen) 103.8 ml/min 09/06/22 02:14 Est GFR (Non-Af Am er) 89.6 ml/min 09/06/22 02:14 BUN/Creatinine Rat io 20.7 (10-20) H 09/06/22 02:14 Glucose 131 mg/dl (70-99( Fasting)) H 09/06/22 02:14 Lactate 0.9 mmol/L (0.4-2 .0) 09/06/22 02:14 Calcium 9.1 mg/dl (8.5-10 .1) 09/06/22 02:14 Magnesium 1.9 mg/dl (1.7-2. 4) 09/06/22 02:14 Total Bilirubin 0.5 mg/dl (0.2-1. 0) 09/06/22 02:14 Direct Bilirubin 0.1 mg/dl (0-0.2) 09/06/22 02:14 AST 11 U/L (13-39) L 09/06/22 02:14 ALT 12 U/L (7-52) 09/06/22 02:14 Alkaline Phosphata se 48 U/L (34-104) 09/06/22 02:14 Troponin I High Se ns 6.1 pg/ml (0-20) 09/06/22 02:14 B-Natriuretic Pept madelin 59 pg/ml (0-100) 09/06/22 02:14 Total Protein 6.8 gm/dl (6.0-8. 3) 09/06/22 02:14 Albumin 4.0 gm/dl (3.4-5. 0) 09/06/22 02:14 Globulin 2.8 gm/dl (2.5-4. 0) 09/06/22 02:14 Albumin/Globulin R atio 1.4 (0.9-2) 09/06/22 02:14 Procalcitonin < 0.05 ng/ml (0-0 .5) 09/06/22 02:14 Urine Color Yellow 09/06/22 Unknown Urine Appearance Clear (Clear) 09/06/22 Unknown Urine pH 6.0 (4.5-7.5) 09/06/22 Unknown Ur Specific Gravit y 1.018 (1.000-1.0 30) 09/06/22 Unknown Urine Protein Negative (Negati ve) 09/06/22 Unknown Urine Glucose (UA) Negative (Negati ve) 09/06/22 Unknown Urine Ketones Negative (Negati ve) 09/06/22 Unknown Urine Blood 2+ (Negative) H 09/06/22 Unknown Urine Nitrite Negative (Negati ve) 09/06/22 Unknown Urine Bilirubin Negative (Negati ve) 09/06/22 Unknown Urine Urobilinogen Negative (Negati ve) 09/06/22 Unknown Ur Leukocyte [place] ase Negative (Negati ve) 09/06/22 Unknown Urine WBC (Auto) 1-5 /hpf (0-5) 09/06/22 Unknown Urine RBC (Auto) 10-30 /hpf (0-4) H 09/06/22 Unknown U Hyaline Cast (Au to) 1-5 /lpf (0-5) 09/06/22 Unknown U Epithel Cells (A uto) 5-10 /lpf (0-5) H 09/06/22 Unknown Urine Bacteria (Au to) Negative (Negati ve) 09/06/22 Unknown SARS-CoV-2 (PCR) NEGATIVE (Negati ve) 09/06/22 02:03 Influenza Type A ( PCR) Negative (Neg) 09/06/22 02:03 Influenza Type B ( PCR) Negative (Neg) 09/06/22 02:03 RSV (RT-PCR) Negative (Neg) 09/06/22 02:03 Physical Exam Physical Exam: General: patient chronically ill in appearance, NC in place Skin: warm, dry, intact, no rashes or lesions HEENT: NC/AT, PERRL, EOMI, anicteric sclera, conjunctiva without injection, external ear normal to inspection and nontender, nares patent, moist mucus membranes, dentition intact, no oropharyngeal lesions, neck supple, s/p neck dissection on left, trachea midline, no LAD, no thyromegaly, no JVD Heart: +S1/S2, regular, no m/r/g Lungs: diminished breath sounds left base, coarse breath sounds right base, minimal wheezing, diminished breath sounds Abd: +BS, soft, NT/ND, no masses/organomegaly/ascites, PEG tube in place, no bleeding/erythema Ext: warm, 2+ pulses in UE/LE bilaterally, no clubbing/cyanosis, 1+ edema Neuro: nonfocal, patient AA&O x 4, speech intact, no facial droop, moving all extremities on command with equal strength 5/5 Results & Data Results & Data ([facility]) Vital Signs (Past 12 Hours) Vital Signs Temp Pulse Resp BP Pulse Ox O2 Del Method O2 Flow Rate 09/06/22 04:02 88 29 H 96 09/06/22 04:02 150/80 H 09/06/22 04:00 88 34 H 94 09/06/22 03:35 140/105 H 09/06/22 03:35 93 H 26 H 93 09/06/22 03:01 84 28 H 95 09/06/22 03:01 122/62 09/06/22 03:00 85 30 H 93 09/06/22 02:30 85 24 96 09/06/22 02:30 120/65 09/06/22 02:01 92 H 23 87 L 09/06/22 02:01 152/94 H 09/06/22 02:00 90 23 71 L 09/06/22 01:58 93 H 27 H 89 L 09/06/22 01:58 157/95 H 09/06/22 01:54 96 H 26 H 69 L 09/06/22 02:19 95 Nasal Cannula 6 09/06/22 01:49 Nasal Cannula 09/06/22 01:49 Nasal Cannula 09/06/22 01:49 36.8 C 92 H 22 152/94 H 93 Nasal Cannula 6 Laboratory Results Laboratory Results WBC 10.50 K/ul (4.8-10.8) 09/06/22 02:14 RBC 4.86 M/uL (4.63-6.08) 09/06/22 02:14 Hgb 14.1 g/dl (14.0-18.0) 09/06/22 02:14 Hct 45.5 % (40.1-51.0) 09/06/22 02:14 MCV 93.6 fL (80.0-100.0) 09/06/22 02:14 MCH 29.0 pg (25.0-34.0) 09/06/22 02:14 MCHC 31.0 g/dL (32.0-36.0) L 09/06/22 02:14 RDW Std Deviation 46.6 fL (36.4-46.3) H 09/06/22 02:14 RDW Coeff of Valdemar 13.6 % (11.5-14.5) 09/06/22 02:14 Plt Count 164 K/uL (130-400) 09/06/22 02:14 MPV 9.4 fL (9.4-12.4) 09/06/22 02:14 Immature Gran % (Auto) 0.4 % 09/06/22 02:14 Neut % (Auto) 80.3 % 09/06/22 02:14 Lymph % (Auto) 8.6 % 09/06/22 02:14 [place] % (Auto) 7.2 % 09/06/22 02:14 Eos % (Auto) 3.1 % 09/06/22 02:14 Baso % (Auto) 0.4 % 09/06/22 02:14 Neut # (Auto) 8.43 K/uL (1.4-6.5) H 09/06/22 02:14 Lymph # (Auto) 0.90 K/uL (1.2-3.4) L 09/06/22 02:14 [place] # (Auto) 0.76 K/uL (0.24-0.82) 09/06/22 02:14 Eos # (Auto) 0.33 K/uL (0-0.50) 09/06/22 02:14 Baso # (Auto) 0.04 K/uL (0-0.2) 09/06/22 02:14 Immature Gran # (Auto) 0.04 K/uL (0.00-0.02) H 09/06/22 02:14 VBG pH 7.34 (7.36-7.41) L 09/06/22 03:11 VBG pCO2 94 mmHg (38-50) H 09/06/22 03:11 VBG pO2 33 mmHg 09/06/22 03:11 VBG HCO3 51 mmol/L 09/06/22 03:11 VBG O2 Saturation < 60.0 % 09/06/22 03:11 VBG Base Excess 19.6 mEq/L 09/06/22 03:11 Sodium 144 mmol/L (136-145) 09/06/22 02:14 Potassium 4.4 mmol/L (3.5-5.1) 09/06/22 02:14 Chloride 98 mmol/L (98-107) 09/06/22 02:14 Carbon Dioxide 45 mmol/L (21-32) H* 09/06/22 02:14 Anion Gap 1 (3-11) L 09/06/22 02:14 BUN 17 mg/dl (6-23) 09/06/22 02:14 Creatinine 0.82 mg/dl (0.6-1.4) 09/06/22 02:14 Est Cr Clr Drug Dosing Not Reportable 09/06/22 02:14 Est GFR ( Amer) 103.8 ml/min 09/06/22 02:14 Est GFR (Non-Af Amer) 89.6 ml/min 09/06/22 02:14 BUN/Creatinine Ratio 20.7 (10-20) H 09/06/22 02:14 Glucose 131 mg/dl (70-99(Fasting)) H 09/06/22 02:14 Lactate 0.9 mmol/L (0.4-2.0) 09/06/22 02:14 Calcium 9.1 mg/dl (8.5-10.1) 09/06/22 02:14 Magnesium 1.9 mg/dl (1.7-2.4) 09/06/22 02:14 Total Bilirubin 0.5 mg/dl (0.2-1.0) 09/06/22 02:14 Direct Bilirubin 0.1 mg/dl (0-0.2) 09/06/22 02:14 AST 11 U/L (13-39) L 09/06/22 02:14 ALT 12 U/L (7-52) 09/06/22 02:14 Alkaline Phosphatase 48 U/L (34-104) 09/06/22 02:14 Troponin I High Sens 6.1 pg/ml (0-20) 09/06/22 02:14 B-Natriuretic Peptide 59 pg/ml (0-100) 09/06/22 02:14 Total Protein 6.8 gm/dl (6.0-8.3) 09/06/22 02:14 Albumin 4.0 gm/dl (3.4-5.0) 09/06/22 02:14 Globulin 2.8 gm/dl (2.5-4.0) 09/06/22 02:14 Albumin/Globulin Ratio 1.4 (0.9-2) 09/06/22 02:14 Procalcitonin < 0.05 ng/ml (0-0.5) 09/06/22 02:14 Urine Color Yellow 09/06/22 Unknown Urine Appearance Clear (Clear) 09/06/22 Unknown Urine pH 6.0 (4.5-7.5) 09/06/22 Unknown Ur Specific [place] 1.018 (1.000-1.030) 09/06/22 Unknown Urine Protein Negative (Negative) 09/06/22 Unknown Urine Glucose (UA) Negative (Negative) 09/06/22 Unknown Urine Ketones Negative (Negative) 09/06/22 Unknown Urine Blood 2+ (Negative) H 09/06/22 Unknown Urine Nitrite Negative (Negative) 09/06/22 Unknown Urine Bilirubin Negative (Negative) 09/06/22 Unknown Urine Urobilinogen Negative (Negative) 09/06/22 Unknown Ur Leukocyte Esterase Negative (Negative) 09/06/22 Unknown Urine WBC (Auto) 1-5 /hpf (0-5) 09/06/22 Unknown Urine RBC (Auto) 10-30 /hpf (0-4) H 09/06/22 Unknown U Hyaline Cast (Auto) 1-5 /lpf (0-5) 09/06/22 Unknown U Epithel Cells (Auto) 5-10 /lpf (0-5) H 09/06/22 Unknown Urine Bacteria (Auto) Negative (Negative) 09/06/22 Unknown SARS-CoV-2 (PCR) NEGATIVE (Negative) 09/06/22 02:03 Influenza Type A (PCR) Negative (Neg) 09/06/22 02:03 Influenza Type B (PCR) Negative (Neg) 09/06/22 02:03 RSV (RT-PCR) Negative (Neg) 09/06/22 02:03 PG Care Time/CCT Total # of Minutes Spent Total Time Spent with Patient: Total time spent is greater than 50% in coordination of care (as documented) at patient's floor/unit and/or counseling patient: Coding Level of Care Code 61958 Initial Inpt Care Lvl 3 Diagnoses Pneumonia J18.9 GERD (gastroesophageal reflux disease) K21.9 Hypertension I10 Hypothyroidism E03.9 COPD (chronic obstructive pulmonary disease) J44.9
--- NOTE | 2022-09-06 06:44 | Emergency Department Note ---
Impression & Plan Right lower lobe pneumonia, Hypoxia Admit to the [facility] ED Provider Note NAME: ABHIJIT ARZOLA AGE: 72 SEX: M ARRIVES VIA: Ambulance INFORMANT: Patient and EMS ED PROVIDER(S): Mady Duffy DO CHIEF COMPLAINT: Shortness of breath PLAN: Disposition: Admit to the [facility] group Condition: Guarded MEDICAL DECISION MAKING: This is a 9-year-old male patient with an extensive past medical history who presents to the emergency department with worsening cold symptoms over the past couple of days and increased respiratory distress since 10 PM this evening. Patient has tachypnea and hypoxia on physical exam. CT scan of the chest shows evidence of a right-sided lower lobe pulmonary infiltrate consistent with early pneumonia. The patient was treated with IV Zosyn. I discussed the case with the [facility] [place] Divisionist and they will evaluate for further management. Triage Nursing notes reviewed and agree with them. Vital Signs: reviewed and remarkable for hypoxia Differential diagnosis: Pneumonia, COVID-19, influenza, other viral illness, CHF ER treatment provided: IV Zosyn Diagnostics interpreted by me: ECG: normal sinus rhythm at a rate of [address] segment elevation or signs of ischemia. EKG has a poor baseline. No obvious ectopy Cardiac Monitoring: Normal sinus rhythm at 82 Laboratory studies: See below Imaging studies: As per my interpretation-portable chest x-ray: Elevated right left hemidiaphragm with some rotation. There is moderate pulmonary vascular congestion. As per stat rad CT chest: There is marked elevation/eventration of the left hemidiaphragm which causes compressive atelectasis at the left lung base and pushes the mediastinum rightward. There is also peribronchial thickening and possibly an early infiltration in the right lower lobe. Consider bronchitis with early pneumonia. Minimal tree-in-bud appearance periphery right middle lobe right upper lobe which is likely due to small airway disease. No pneumothorax or pneumomediastinum. Heart size is normal. No pericardial effusions. Calcified coronary artery plaq ue noted. Osseous structures are intact. Pancreatic atrophy noted HPI: 72/M arrives for evaluation of shortness of breath. Patient describes cold symptoms over the past couple days with worsening respiratory distress sin ce 10 PM this evening. Patient states that he could not breathe and called 911. ROS: See above HPI for pertinent positives & negatives. A total of 10 systems reviewed and were otherwise negative. PAST MEDICAL HISTORY:See Below PAST SURGICAL HISTORY:See Below FAMILY HISTORY:See Below SOCIAL HISTORY:See Below HOME MEDICATIONS:See list ALLERGIES:See list VITALS:See Below PHYSICAL EXAMINATION: HEENT: Head - normocephalic and atraumatic. Pupils are equal, round, and reactive to light. Extraocular eye muscles are intact, and sclera are anicteric. Nose - moist nasal mucosa without discharge. Mouth - moist buccal mucosa. Oropharynx is nonerythematous and there is no tonsillar exudate or edema noted. Neck: Supple; no JVD. Heart: Regular rate and rhythm. There is a normal S1 and S2 with no murmurs, clicks, or gallops appreciated. Lungs: Absent breath sounds in the left lung base. Rhonchi in the right lung. Abdomen: Soft, completely nontender, nondistended, with good bowel sounds. There are no palpable pulsatile masses or hepatosplenomegaly. There is no guarding, rigidity, or rebound noted. Extremities: No evidence of cyanosis, clubbing, or edema. There are easily palpable peripheral pulses. Skin: warm and dry with good turgor and no rashes. ED COURSE: Times/Reassessments: 200: The patient was evaluated in room C11. An order was placed for continuous cardiac monitoring. The patient was in a normal sinus rhythm at a rate of 94. Twelve-lead EKG was obtained as described above. Portable chest x-ray was performed. The patient was significantly hypoxic upon arrival here in the emergency department and had to be placed on supplemental oxygen by EMS and here in the emergency department. He went for CT scan of the chest which showed evidence of a right lower lobe pneumonia. He was started on IV Zosyn. I discussed the case with the [facility] Hospitalist and they will evaluate for further management. Mady Duffy, Past Med/Surg History Medical History Arthritis BPH (benign prostatic hyperplasia) Claustrophobia COPD (chronic obstructive pulmonary disease) Degenerative disc disease Diaphragmatic paralysis Dysphagia G tube feedings GERD (gastroesophageal reflux disease) History of aspiration pneumonia History of cancer tonsil Hypertension Hypothyroidism Obesity On home oxygen therapy Sleep apnea Surgical History History of colonoscopy History of difficult intubation History of esophagogastroduodenoscopy (EGD) History of tooth extraction Hx of excision of mass S/P percutaneous endoscopic gastrostomy (PEG) tube placement Family History Other Hypertension Lung disease No family history of adverse response to anesthesia Social History Smoking Status: Former smoker Second Hand Exposure: No; Hx Alcohol Use: No Hx Substance Use: No Preferred Language: Bahraini Communication Ability: Effective 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 Beliefs That Will Affect Care: None marital status: Current Living Situation: Spouse current occupational status: retired Feels Safe at Home: Yes Assistive Devices: Denture - Upper, Denture - Lower, Glasses, Hearing Aid - Bilateral and Oxygen - Continuous Allergies Allergies Allergy/AdvReac Type Severity Reaction Status Date / Time amoxicillin [From Augmentin] Allergy Unknown Verified 09/06/22 10:28 clavulanic acid Allergy Unknown Verified 09/06/22 10:28 [From Augmentin] levofloxacin [From Levaquin] AdvReac Intermediate Severe Verified 09/06/22 10:23 ankle muscle pain budesonide AdvReac Mild Thrush Verified 09/06/22 10:23 fluticasone AdvReac Mild Thrush Verified 09/06/22 10:23 [From Advair Diskus] salmeterol AdvReac Mild Thrush Verified 09/06/22 10:23 [From Advair Diskus] Home Meds Home Medications Medication Instructions Recorded Confirmed pantoprazole 40 mg tablet,delayed 40 mg PO QAM 09/28/18 09/06/22 release (Protonix) tramadol 50 mg tablet 50 mg PO HS 04/22/20 09/06/22 albuterol sulfate 90 mcg/actuation 2 puff inhalation QID PRN 05/21/22 09/06/22 aerosol inhaler shortness of breath or wheezing gabapentin 300 mg capsule 300 mg PO QAM 05/21/22 09/06/22 gabapentin 300 mg capsule 600 mg PO QPM 05/21/22 09/06/22 levothyroxine 175 mcg tablet 175 mcg PO DAILYBB 05/21/22 09/06/22 lisinopril 20 mg tablet 20 mg PO QAM 05/21/22 09/06/22 mupirocin 2 % topical ointment 1 applic topical TID PRN Dry Skin 05/21/22 09/06/22 Oxygen Home 09/06/22 09/06/22 aspirin 81 mg capsule 81 mg PO QAM 09/06/22 09/06/22 meloxicam 15 mg tablet 15 mg PO QAM 09/06/22 09/06/22 Previous Rx's Medication Instructions Recorded diltiazem HCl 30 mg tablet 30 mg PO Q8H #90 tabs 07/13/22 Results & Data (ED) Vital Signs Vital Signs - 24 hr 09/06/22 01:49 09/06/22 01:49 09/06/22 01:49 Temperature 36.8 C Temperature Source Oral Pulse Rate 92 H Pulse Rate from SpO2 Sensor Respiratory Rate 22 Blood Pressure 152/94 H Blood Pressure Mean 113 Pulse Oximetry 93 Oxygen Delivery Method Nasal Cannula Nasal Cannula Nasal Cannula Oxygen Flow Rate 6 Sepsis Recent Fever Within 48 Hours No Sepsis New/Unexplained Change in Mental Status No Sepsis Action Taken by Nursing No Action Required 09/06/22 02:19 09/06/22 01:54 09/06/22 01:58 Temperature Temperature Source Pulse Rate 96 H Pulse Rate from SpO2 Sensor 110 H Respiratory Rate 26 H Blood Pressure 157/95 H Blood Pressure Mean 115 Pulse Oximetry 95 69 L Oxygen Delivery Method Nasal Cannula Oxygen Flow Rate 6 Sepsis Recent Fever Within 48 Hours Sepsis New/Unexplained Change in Mental Status Sepsis Action Taken by Nursing 09/06/22 01:58 09/06/22 02:00 09/06/22 02:01 Temperature Temperature Source Pulse Rate 93 H 90 Pulse Rate from SpO2 Sensor 89 126 H Respiratory Rate 27 H 23 Blood Pressure 152/94 H Blood Pressure Mean 113 Pulse Oximetry 89 L 71 L Oxygen Delivery Method Oxygen Flow Rate Sepsis Recent Fever Within 48 Hours Sepsis New/Unexplained Change in Mental Status Sepsis Action Taken by Nursing 09/06/22 02:01 09/06/22 02:30 09/06/22 02:30 Temperature Temperature Source Pulse Rate 92 H 85 Pulse Rate from SpO2 Sensor 93 H 85 Respiratory Rate 23 24 Blood Pressure 120/65 Blood Pressure Mean 83 Pulse Oximetry 87 L 96 Oxygen Delivery Method Oxygen Flow Rate Sepsis Recent Fever Within 48 Hours Sepsis New/Unexplained Change in Mental Status Sepsis Action Taken by Nursing 09/06/22 03:00 09/06/22 03:01 09/06/22 03:01 Temperature Temperature Source Pulse Rate 85 84 Pulse Rate from SpO2 Sensor 87 84 Respiratory Rate 30 H 28 H Blood Pressure 122/62 Blood Pressure Mean 82 Pulse Oximetry 93 95 Oxygen Delivery Method Oxygen Flow Rate Sepsis Recent Fever Within 48 Hours Sepsis New/Unexplained Change in Mental Status Sepsis Action Taken by Nursing 09/06/22 03:35 09/06/22 03:35 09/06/22 04:00 Temperature Temperature Source Pulse Rate 93 H 88 Pulse Rate from SpO2 Sensor 98 H 88 Respiratory Rate 26 H 34 H Blood Pressure 140/105 H Blood Pressure Mean 116 Pulse Oximetry 93 94 Oxygen Delivery Method Oxygen Flow Rate Sepsis Recent Fever Within 48 Hours Sepsis New/Unexplained Change in Mental Status Sepsis Action Taken by Nursing 09/06/22 04:02 09/06/22 04:02 09/06/22 04:30 Temperature Temperature Source Pulse Rate 88 Pulse Rate from SpO2 Sensor 88 Respiratory Rate 29 H Blood Pressure 150/80 H 136/74 Blood Pressure Mean 103 94 Pulse Oximetry 96 Oxygen Delivery Method Oxygen Flow Rate Sepsis Recent Fever Within 48 Hours Sepsis New/Unexplained Change in Mental Status Sepsis Action Taken by Nursing 09/06/22 04:30 09/06/22 05:00 09/06/22 05:01 Temperature Temperature Source Pulse Rate 89 90 Pulse Rate from SpO2 Sensor 90 87 Respiratory Rate 25 H 23 Blood Pressure 130/82 Blood Pressure Mean 98 Pulse Oximetry 96 70 L Oxygen Delivery Method Oxygen Flow Rate Sepsis Recent Fever Within 48 Hours Sepsis New/Unexplained Change in Mental Status Sepsis Action Taken by Nursing 09/06/22 05:01 Temperature Temperature Source Pulse Rate 90 Pulse Rate from SpO2 Sensor 87 Respiratory Rate 26 H Blood Pressure Blood Pressure Mean Pulse Oximetry 78 L Oxygen Delivery Method Oxygen Flow Rate Sepsis Recent Fever Within 48 Hours Sepsis New/Unexplained Change in Mental Status Sepsis Action Taken by Nursing Laboratory Data Result diagrams: 09/06/22 08:53 09/06/22 08:53 Lab Results 09/06/22 09/06/22 09/06/22 Range/Units 02:03 02:14 02:14 WBC 10.50 (4.8-10.8) K/ul RBC 4.86 (4.63-6.08) M/uL Hgb 14.1 (14.0-18.0) g/dl Hct 45.5 (40.1-51.0) % MCV 93.6 (80.0-100.0) fL MCH 29.0 (25.0-34.0) pg MCHC 31.0 L (32.0-36.0) g/dL RDW Std Deviation 46.6 H (36.4-46.3) fL RDW Coeff of Valdemar 13.6 (11.5-14.5) % Plt Count 164 (130-400) K/uL MPV 9.4 (9.4-12.4) fL Immature Gran % (Auto) 0.4 % Neut % (Auto) 80.3 % Lymph % (Auto) 8.6 % [place] % (Auto) 7.2 % Eos % (Auto) 3.1 % Baso % (Auto) 0.4 % Neut # (Auto) 8.43 H (1.4-6.5) K/uL Lymph # (Auto) 0.90 L (1.2-3.4) K/uL [place] # (Auto) 0.76 (0.24-0.82) K/uL Eos # (Auto) 0.33 (0-0.50) K/uL Baso # (Auto) 0.04 (0-0.2) K/uL Immature Gran # (Auto) 0.04 H (0.00-0.02) K/uL VBG pH (7.36-7.41) VBG pCO2 (38-50) mmHg VBG pO2 mmHg VBG HCO3 mmol/L VBG O2 Saturation % VBG Base Excess mEq/L Sodium 144 (136-145) mmol/L Potassium 4.4 (3.5-5.1) mmol/L Chloride 98 (98-107) mmol/L Carbon Dioxide 45 H* (21-32) mmol/L Anion Gap 1 L (3-11) BUN 17 (6-23) mg/dl Creatinine 0.82 (0.6-1.4) mg/dl Est Cr Clr Drug Dosing Not Reportable Est GFR ( Amer) 103.8 ml/min Est GFR (Non-Af Amer) 89.6 ml/min BUN/Creatinine Ratio 20.7 H (10-20) Glucose 131 H (70-99(Fasting)) mg/dl Lactate (0.4-2.0) mmol/L Calcium 9.1 (8.5-10.1) mg/dl Magnesium 1.9 (1.7-2.4) mg/dl Total Bilirubin 0.5 (0.2-1.0) mg/dl Direct Bilirubin 0.1 (0-0.2) mg/dl AST 11 L (13-39) U/L ALT 12 (7-52) U/L Alkaline Phosphatase 48 (34-104) U/L Troponin I High Sens 6.1 (0-20) pg/ml B-Natriuretic Peptide (0-100) pg/ml Total Protein 6.8 (6.0-8.3) gm/dl Albumin 4.0 (3.4-5.0) gm/dl Globulin 2.8 (2.5-4.0) gm/dl Albumin/Globulin Ratio 1.4 (0.9-2) Procalcitonin (0-0.5) ng/ml SARS-CoV-2 (PCR) NEGATIVE (Negative) Influenza Type A (PCR) Negative (Neg) Influenza Type B (PCR) Negative (Neg) RSV (RT-PCR) Negative (Neg) 09/06/22 09/06/22 09/06/22 Range/Units 02:14 02:14 02:14 WBC (4.8-10.8) K/ul RBC (4.63-6.08) M/uL Hgb (14.0-18.0) g/dl Hct (40.1-51.0) % MCV (80.0-100.0) fL MCH (25.0-34.0) pg MCHC (32.0-36.0) g/dL RDW Std Deviation (36.4-46.3) fL RDW Coeff of Valdemar (11.5-14.5) % Plt Count (130-400) K/uL MPV (9.4-12.4) fL Immature Gran % (Auto) % Neut % (Auto) % Lymph % (Auto) % [place] % (Auto) % Eos % (Auto) % Baso % (Auto) % Neut # (Auto) (1.4-6.5) K/uL Lymph # (Auto) (1.2-3.4) K/uL [place] # (Auto) (0.24-0.82) K/uL Eos # (Auto) (0-0.50) K/uL Baso # (Auto) (0-0.2) K/uL Immature Gran # (Auto) (0.00-0.02) K/uL VBG pH (7.36-7.41) VBG pCO2 (38-50) mmHg VBG pO2 mmHg VBG HCO3 mmol/L VBG O2 Saturation % VBG Base Excess mEq/L Sodium (136-145) mmol/L Potassium (3.5-5.1) mmol/L Chloride (98-107) mmol/L Carbon Dioxide (21-32) mmol/L Anion Gap (3-11) BUN (6-23) mg/dl Creatinine (0.6-1.4) mg/dl Est Cr Clr Drug Dosing Est GFR ( Amer) ml/min Est GFR (Non-Af Amer) ml/min BUN/Creatinine Ratio (10-20) Glucose (70-99(Fasting)) mg/dl Lactate 0.9 (0.4-2.0) mmol/L Calcium (8.5-10.1) mg/dl Magnesium (1.7-2.4) mg/dl Total Bilirubin (0.2-1.0) mg/dl Direct Bilirubin (0-0.2) mg/dl AST (13-39) U/L ALT (7-52) U/L Alkaline Phosphatase (34-104) U/L Troponin I High Sens (0-20) pg/ml B-Natriuretic Peptide 59 (0-100) pg/ml Total Protein (6.0-8.3) gm/dl Albumin (3.4-5.0) gm/dl Globulin (2.5-4.0) gm/dl Albumin/Globulin Ratio (0.9-2) Procalcitonin < 0.05 (0-0.5) ng/ml SARS-CoV-2 (PCR) (Negative) Influenza Type A (PCR) (Neg) Influenza Type B (PCR) (Neg) RSV (RT-PCR) (Neg) 09/06/22 Range/Units 03:11 WBC (4.8-10.8) K/ul RBC (4.63-6.08) M/uL Hgb (14.0-18.0) g/dl Hct (40.1-51.0) % MCV (80.0-100.0) fL MCH (25.0-34.0) pg MCHC (32.0-36.0) g/dL RDW Std Deviation (36.4-46.3) fL RDW Coeff of Valdemar (11.5-14.5) % Plt Count (130-400) K/uL MPV (9.4-12.4) fL Immature Gran % (Auto) % Neut % (Auto) % Lymph % (Auto) % [place] % (Auto) % Eos % (Auto) % Baso % (Auto) % Neut # (Auto) (1.4-6.5) K/uL Lymph # (Auto) (1.2-3.4) K/uL [place] # (Auto) (0.24-0.82) K/uL Eos # (Auto) (0-0.50) K/uL Baso # (Auto) (0-0.2) K/uL Immature Gran # (Auto) (0.00-0.02) K/uL VBG pH 7.34 L (7.36-7.41) VBG pCO2 94 H (38-50) mmHg VBG pO2 33 mmHg VBG HCO3 51 mmol/L VBG O2 Saturation < 60.0 % VBG Base Excess 19.6 mEq/L Sodium (136-145) mmol/L Potassium (3.5-5.1) mmol/L Chloride (98-107) mmol/L Carbon Dioxide (21-32) mmol/L Anion Gap (3-11) BUN (6-23) mg/dl Creatinine (0.6-1.4) mg/dl Est Cr Clr Drug Dosing Est GFR ( Amer) ml/min Est GFR (Non-Af Amer) ml/min BUN/Creatinine Ratio (10-20) Glucose (70-99(Fasting)) mg/dl Lactate (0.4-2.0) mmol/L Calcium (8.5-10.1) mg/dl Magnesium (1.7-2.4) mg/dl Total Bilirubin (0.2-1.0) mg/dl Direct Bilirubin (0-0.2) mg/dl AST (13-39) U/L ALT (7-52) U/L Alkaline Phosphatase (34-104) U/L Troponin I High Sens (0-20) pg/ml B-Natriuretic Peptide (0-100) pg/ml Total Protein (6.0-8.3) gm/dl Albumin (3.4-5.0) gm/dl Globulin (2.5-4.0) gm/dl Albumin/Globulin Ratio (0.9-2) Procalcitonin (0-0.5) ng/ml SARS-CoV-2 (PCR) (Negative) Influenza Type A (PCR) (Neg) Influenza Type B (PCR) (Neg) RSV (RT-PCR) (Neg) Administered Medications Albuterol (Albut/Ipratrop 3mg/0.5mg Neb 3 Ml Vial) 3 ml NEB Q4R PEDRO; Protocol Stop: 10/06/22 07:49 Last Admin: 09/06/22 15:23 Dose: 3 ml Documented By: Admin: 09/06/22 11:25 Dose: 3 ml Documented By: Admin: 09/06/22 08:23 Dose: 3 ml Documented By: SUNITHA Diltiazem HCl (Diltiazem Hcl 30 Mg Tab) 30 mg PO Q8H PEDRO Stop: 10/06/22 07:59 Last Admin: 09/06/22 17:00 Dose: Not Given Documented By: Admin: 09/06/22 09:12 Dose: 30 mg Documented By: CAMILO Gabapentin (Gabapentin 300 Mg Cap) 300 mg PO QAM PEDRO Stop: 10/06/22 08:59 Last Admin: 09/06/22 09:13 Dose: 300 mg Documented By: Admin: 09/06/22 09:12 Dose: 300 mg Documented By: CAMILO Guaifenesin (Guaifenesin 600 Mg Tabcr) 1,200 mg PO Q12 PEDRO Stop: 10/06/22 08:59 Last Admin: 09/06/22 08:33 Dose: 1,200 mg Documented By: CAMILO Piperacillin Sod/Tazobactam (Sod 3.375 gm/ Dextrose) 115 mls @ 28.75 mls/hr IV Q8H PEDRO; Protocol Stop: 09/13/22 10:59 Last Infusion: 09/06/22 15:10 Dose: 0 mls/hr Documented By: Admin: 09/06/22 10:38 Dose: 28.8 mls/hr Documented By: CAMILO Levothyroxine Sodium (Levothyroxine Sodium 175 Mcg Tablet) 175 mcg PO DAILYBB PEDRO Stop: 10/06/22 08:29 Last Admin: 09/06/22 09:16 Dose: 175 mcg Documented By: CAMILO Lisinopril (Lisinopril 20 Mg Tab) 20 mg PO QAM [facility] Stop: 10/06/22 08:59 Last Admin: 09/06/22 09:12 Dose: 20 mg Documented By: CAMILO Pantoprazole Sodium (Pantoprazole 40 Mg Tab) 40 mg PO QAM [facility] Stop: 10/06/22 08:59 Last Admin: 09/06/22 08:32 Dose: 40 mg Documented By: CAMILO Prednisone (Prednisone 20 Mg Tab) 40 mg PO DAILY [facility]; Taper Stop: 09/12/22 08:59 Last Admin: 09/06/22 08:32 Dose: 40 mg Documented By: CAMILO Discontinued Medications Piperacillin Sod/Tazobactam Sod (Zosyn) 4.5 gm in 120 mls @ 240 mls/hr IV NOW ONE Stop: 09/06/22 05:10 Last Infusion: 09/06/22 06:00 Dose: 0 mls/hr Documented By: Admin: 09/06/22 05:20 Dose: 240 mls/hr Documented By: EMB Imaging Data Radiologist's Impression: Chest X-Ray 09/06/22 01:58 XR chest 1V portable HISTORY: Dyspnea COMPARISON: Chest 04/27/2022. FINDINGS: Chronic elevation of the left hemidiaphragm and bibasilar linear densities likely representing subsegmental atelectasis. This remains unchanged. The heart remains enlarged. There is mild central pulmonary vascular congestion without overt edema. No pneumothorax. IMPRESSION: 1. Mild central pulmonary vascular congestion without overt edema. 2. Cardiomegaly and elevated left hemidiaphragm persists. ACT 112: Negative or not required by law. Electronically signed by: Vijay Garcia M.D. 09/06/2022 8:[address] 09/06/22 02:56 CT chest diagnostic wo con CT DOSE: 1227.28 mGy.cm HISTORY: eval for opacity vs. consolidation TECHNIQUE: Multiaxial CT images of the chest were performed without contrast. A dose lowering technique was utilized adhering to the principles of ALARA. COMPARISON: Chest CTA 01/12/2019. FINDINGS: The visualized liver, spleen, and adrenal glands unremarkable. There is chronic elevation of the left hemidiaphragm again noted. The heart is normal in size. No mediastinal or hilar lymphadenopathy. Normal esophagus. Normal caliber thoracic aorta. No acute fractures identified. No pneumothorax. A right azygos lobe is again noted. Bibasilar linear densities favor subsegmental atelectasis. There is mild respiratory motion artifact. There are few patchy groundglass and tree-in-bud nodular opacities within the right lung. This may represent a mild pneumonitis. IMPRESSION: 1. There are few patchy groundglass and tree-in-bud nodular opacities within the right lung. This may represent a mild pneumonitis. 2. Chronic elevation of the left hemidiaphragm again noted. ACT 112: Negative or not required by law. Electronically signed by: Vijay Garcia M.D. 09/06/2022 8:01 AM Discharge Plan Visit Data Chief Complaint: Shortness of Breath/Dyspnea Stated Complaint: SHORTNESS OF BREATH ED Provider: Mady Duffy Discharge Problem: Right lower lobe pneumonia, Hypoxia Patient Disposition: Admitted As Inpatient Discharge Instructions Interventions: ED Discharge Assessment Last Done: 09/06/22 07:19 : Right lower lobe pneumonia Qualifiers: Pneumonia type: due to unspecified organism Qualified Code(s): J18.9 - Pneumonia, unspecified organism
[2022-09-06] MEDS ORDERED: MELOXICAM 7.5 MG TAB PO PRN (07:50)
[2022-09-06] MEDS ORDERED: ACETAMINOPHEN 325 MG TAB PO PRN (07:50)
[2022-09-06] MEDS ORDERED: ALBUTEROL 0.5% NEB SOLN 2.5 MG/0.5 ML VIAL NEB PRN (07:50)
--- NOTE | 2022-09-06 08:03 | CT Scan Report ---
CT chest diagnostic wo con CT DOSE: 1227.28 mGy.cm HISTORY: eval for opacity vs. consolidation TECHNIQUE: Multiaxial CT images of the chest were performed without contrast. A dose lowering techni que was utilized adhering to the principles of ALARA. COMPARISON: Chest CTA 01/12/2019. FINDINGS: The visualized liver, spleen, and adrenal glands unremarkable. There is chronic elevation o f the left hemidiaphragm again noted. The heart is normal in size. No mediastinal or hilar lymphadeno leonard. Normal esophagus. Normal caliber thoracic aorta. No acute fractures identified. No pneumothora x. A right azygos lobe is again noted. Bibasilar linear densities favor subsegmental atelectasis. The re is mild respiratory motion artifact. There are few patchy groundglass and tree-in-bud nodular opac ities within the right lung. This may represent a mild pneumonitis. IMPRESSION: 1. There are few patchy groundglass and tree-in-bud nodular opacities within the right lung. This may represent a mild pneumonitis. 2. Chronic elevation of the left hemidiaphragm again noted. ACT 112: Negative or not required by law. Electronically signed by: Vijay Garcia M.D. 09/06/2022 8:01 AM
--- NOTE | 2022-09-06 08:05 | XRay Report ---
XR chest 1V portable HISTORY: Dyspnea COMPARISON: Chest 04/27/2022. FINDINGS: Chronic elevation of the left hemidiaphragm and bibasilar linear densities likely represent ing subsegmental atelectasis. This remains unchanged. The heart remains enlarged. There is mild centr al pulmonary vascular congestion without overt edema. No pneumothorax. IMPRESSION: 1. Mild central pulmonary vascular congestion without overt edema. 2. Cardiomegaly and elevated left hemidiaphragm persists. ACT 112: Negative or not required by law. Electronically signed by: Vijay Garcia M.D. 09/06/2022 8:04 AM
[2022-09-06] MEDS: ALBUT/IPRATROP 3MG/0.5MG NEB 3 ML VIAL NEB SCH ×5 (08:23→22:56)
[2022-09-06] MEDS: predniSONE 20 MG TAB PO SCH (08:32)
[2022-09-06] MEDS: PANTOprazole 40 MG TAB PO SCH (08:32)
[2022-09-06] MEDS: guaiFENesin 600 MG TABCR PO SCH ×2 (08:33→22:17)
[2022-09-06] MEDS: dilTIAZem HCL 30 MG TAB PO SCH ×3 (09:12→23:34)
[2022-09-06] MEDS: lisinopril 20 MG TAB PO SCH (09:12)
[2022-09-06] MEDS: GABAPENTIN 300 MG CAP PO SCH ×2 (09:12→09:13)
[2022-09-06] MEDS: LEVOTHYROXINE SODIUM 175 MCG TABLET PO SCH (09:16)
[2022-09-06 09:27] LABS: Basophils # (auto) 0.06 K/uL (0-0.2); Basophils % (auto) 0.5 %; Eosinophils # (auto) 0.25 K/uL (0-0.50); Eosinophils % (auto) 2.1 %; Hematocrit (blood only) 43.1 % (40.1-51.0); Hemoglobin 13.2 g/dl (14.0-18.0); Immature Granulocytes # (auto) 0.06 K/uL (0.00-0.02); Immature Granulocytes % (auto) 0.5 %; Lymphocytes # (auto) 0.84 K/uL (1.2-3.4); Lymphocytes % (auto) 7.2 %; Mean Corpuscular Hemoglobin 28.3 pg (25.0-34.0); Mean Corpuscular Hgb Conc 30.6 g/dL (32.0-36.0); Mean Corpuscular Volume 92.5 fL (80.0-100.0); Mean Platelet Volume 9.6 fL (9.4-12.4); Monocytes # (auto) 0.69 K/uL (0.24-0.82); Monocytes % (auto) 5.9 %; Neutrophils # (auto) 9.76 K/uL (1.4-6.5); Neutrophils % (auto) 83.8 %; Platelet Count 167 K/uL (130-400); RDW Coefficient of Variation 13.8 % (11.5-14.5); RDW Standard Deviation 46.9 fL (36.4-46.3); Red Blood Count 4.66 M/uL (4.63-6.08); White Blood Count 11.66 K/ul (4.8-10.8)
[2022-09-06 09:54] LABS: BUN Creatinine Ratio 21.8 (10-20); Calcium 8.9 mg/dl (8.5-10.1); Creatinine Clr Calc Pharmacy 111.1 ml/min; Est GFR (African American) 101.3 ml/min; Est GFR (Non-African American) 87.4 ml/min; Phosphorus 3.4 mg/dl (2.5-4.9); Potassium 4.1 mmol/L (3.5-5.1)
[2022-09-06 10:03] LABS: Troponin I High Sensitivity 5.8 pg/ml (0-20)
[2022-09-06] MEDS: PIPERACILLIN/TAZOBACTAM 3.375 GM in DEXTROSE 5% 100 ML IV SCH ×2 (10:38→18:38)
--- NOTE | 2022-09-06 11:23 | Electrocardiogram Report ---
Test Reason : Blood Pressure : / mmHG Vent. Rate : 094 BPM Atrial Rate : 300 BPM P-R Int : 100 ms QRS Dur : 072 ms QT Int : 318 ms P-R-T Axes : 005 -09 -07 degrees QTc Int : 397 ms Poor data quality, interpretation may be adversely affected Probable Normal sinus rhythm Abnormal ECG When compared with ECG of 19-OCT-2019 01:11, No significant change Confirmed by Luis Cohn ([id number]) on 09/06/2022 11:23:09 AM Referred By: Jovanna Carson Confirmed By:Luis Cohn
--- NOTE | 2022-09-06 16:52 | History & Physical Bridge Note ---
Date of Service September 06, 2022 History & Physical Bridge Note I have examined the patient, reviewed the History & Physical and in the interval since the performance of the History & Physical I have noted the following changes of clinical significance: no changes noted Patient evaluated in room 351-2. Down to 4L NC, reports breathing improved since admission. Discussed BiPAP, he had been on in past but machine on recall and person on phone hung up and he never called back but didn't notice worsening of his breathing without it at the beginning of COVID. Discussed elevated serum bicarb higher than usual and CO2 elevation on VBG. Will repeat VBG but discussed if still elevated would recommend BiPAP at least for a little while. No current pulmonary follow up -- has been to multiple providers and always told nothing they could do for him. Noted skepticism w/ medical care given prior botched surgery/diaphragmatic paralysis and longstanding food into his lungs which "no one would own up to". Would help to arrange if agreeable to follow up on Wednesday w/ CM. Noted increased SOB/dyspnea on exertion/sputum production.No fever reported. Noted daughter got them Robitussin antitussive to help him cough stuff up. Discussed antitussive would work in opposite manner and to please confirm what it actually was. On Mucinex BID currently. Sputum cx collected and pending, remains on Zosyn for now Prednisone for COPD exacerbation with nebulizers/pulmonary toilet. Consider adding hypertonic saline nebs to help clear secretions He notes he was taking the Cardizem 30mg TID prescribed by cardiology over the past couple of weeks but that he stopped about a week ago and has had progressive shortness of breath since then. He notes over past couple of months (prior on 2L O2) he had increased to 3L and eventually to 4L at time w/ shortness of breath to improve saturations. Noted prior recs for Lexiscan and declination given friend with testing. Discussed with him and that not able to obtain good echo, would benefit from eval if willing. They will discuss and let nursing know decision. Dr Cohn was contacted this morning and happy to do Lexiscan tomorrow if they decide to pursue. If agreeable, will make NPO after midnight. brought in supplies for home feeding.
[2022-09-06 17:35] LABS: Base Excess VBG 15.3 mEq/L; HCO3 VBG 45 mmol/L; Oxygen Saturation VBG < 60.0 %; PCO2 VBG 84 mmHg (38-50); PO2 VBG 25 mmHg; pH VBG 7.34 (7.36-7.41)
[2022-09-06] MEDS: ACETYLCYSTEINE 10% INHAL SOLN 4 ML **DISPENSED BY RESP. INH SCH (20:15)
[2022-09-06] MEDS ORDERED: Nursing to Pharmacy Communication SCH (20:15)
[2022-09-06] MEDS ORDERED: ACETYLCYSTEINE 10% INHAL SOLN 4 ML **DISPENSED BY RESP. INH SCH (21:00)
[2022-09-06] MEDS ORDERED: GABAPENTIN 250 MG/5 ML 470 ML BTL PO SCH (21:00)
[2022-09-06] MEDS ORDERED: GABAPENTIN 300 MG CAP PO SCH (21:00)
[2022-09-06] MEDS: guaiFENesin SUGAR FREE 200 MG/10 ML UDC PEG SCH (21:34)
[2022-09-07] MEDS: ALBUT/IPRATROP 3MG/0.5MG NEB 3 ML VIAL NEB SCH ×4 (02:20→15:13)
[2022-09-07] MEDS: guaiFENesin SUGAR FREE 200 MG/10 ML UDC PEG SCH ×3 (03:15→16:18)
[2022-09-07] MEDS: PIPERACILLIN/TAZOBACTAM 3.375 GM in DEXTROSE 5% 100 ML IV SCH ×2 (03:16→11:46)
[2022-09-07 05:26] LABS: Hematocrit (blood only) 40.4 % (40.1-51.0); Hemoglobin 12.4 g/dl (14.0-18.0); Mean Corpuscular Hemoglobin 28.8 pg (25.0-34.0); Mean Corpuscular Hgb Conc 30.7 g/dL (32.0-36.0); Mean Corpuscular Volume 93.7 fL (80.0-100.0); Mean Platelet Volume 9.7 fL (9.4-12.4); Platelet Count 161 K/uL (130-400); RDW Coefficient of Variation 13.9 % (11.5-14.5); RDW Standard Deviation 47.8 fL (36.4-46.3); Red Blood Count 4.31 M/uL (4.63-6.08); White Blood Count 8.86 K/ul (4.8-10.8)
[2022-09-07 06:36] LABS: BUN Creatinine Ratio 25.5 (10-20); Calcium 8.6 mg/dl (8.5-10.1); Chol HDL Ratio 3.3 (0-5); Creatinine Clr Calc Pharmacy 102.9 ml/min; Est GFR (African American) 94.8 ml/min; Est GFR (Non-African American) 81.8 ml/min; Potassium 3.7 mmol/L (3.5-5.1)
[2022-09-07 06:39] LABS: Estimated Average Glucose 134 mg/dl; Hemoglobin A1C 6.3 % (4.5-5.6)
[2022-09-07] MEDS: ACETYLCYSTEINE 10% INHAL SOLN 4 ML **DISPENSED BY RESP. INH SCH (07:16)
[2022-09-07] MEDS: predniSONE 20 MG TAB PO SCH (08:35)
[2022-09-07] MEDS: LEVOTHYROXINE SODIUM 175 MCG TABLET PO SCH (08:36)
[2022-09-07] MEDS: PANTOprazole 40 MG TAB PO SCH (08:36)
[2022-09-07] MEDS: lisinopril 20 MG TAB PO SCH (08:36)
[2022-09-07] MEDS: dilTIAZem HCL 30 MG TAB PO SCH ×2 (08:36→16:19)
--- NOTE | 2022-09-07 08:46 | Hospitalist Progress Note ---
Date of Service September 07, 2022 Assessment & Plan (1) Pneumonia: Plan: 72yo male with one week of progressive dyspnea, cough productive for yellow/clear sputum and increased oxygen requirement. CT of the chest with chronic elevation of left hemidiaphragm and possible developing RLL PNA. Patient most likely with chronic aspiration. He takes nutrition primarily through his PEG tube but some oral intake as well. He is presently breathing comfortably. Saturations are adequate on 6L NC -Admit to medical -Follow cultures -Continue Zosyn for PNA, possible aspiration -Supplemental O2 -Prednisone 40mg taper -Mucinex 1200mg po BID -Duonebs -Albuterol (2) GERD (gastroesophageal reflux disease): Plan: Chronic -Continue Protonix (3) Hypertension: Plan: Blood pressure mildly elevated at present -Continue Lisinopril 20mg po daily (4) Hypothyroidism: Plan: Chronic. -Check TSH -Continue Synthroid (5) COPD (chronic obstructive pulmonary disease): Plan: Chronic. Suspect mild exacerbation in setting of PNA -Prednisone 40mg taper -DuoNebs -Albuterol PRN Admission and Anticipated Discharge Date Admission Date: September 06, 2022 Results & Data Results & Data ([facility]) Vital Signs (Past 12 Hours) Vital Signs Temp Pulse Resp BP Pulse Ox O2 Del Method O2 Flow Rate 09/07/22 08:34 80 20 136/66 95 Nasal Cannula 4 09/07/22 07:18 76 18 92 Nasal Cannula 4 09/07/22 07:08 36.5 C 92 H 20 99/62 L 99 Nasal Cannula 3 09/06/22 23:33 82 111/65 09/06/22 22:59 85 18 96 Nasal Cannula 4 PG Care Time/CCT Total # of Minutes Spent Total Time Spent with Patient: Total time spent is greater than 50% in coordination of care (as documented) at patient's floor/unit and/or counseling patient: Coding Diagnoses Pneumonia J18.9 GERD (gastroesophageal reflux disease) K21.9 Hypertension I10 Hypothyroidism E03.9 COPD (chronic obstructive pulmonary disease) J44.9
[2022-09-07] MEDS ORDERED: GABAPENTIN 250 MG/5 ML 470 ML BTL PO SCH (09:00)
--- NOTE | 2022-09-07 12:28 | Discharge Summary ---
Date of Service September 07, 2022 Admission HPI Per Admitting Provider Kelsey Rush is a 72yo male with history of COPD, diaphragmatic paralysis following a neck surgery, GERD and HTN. Patient uses 3L of O2 at home chronically. He reports approximately one week of worsening shortness of breath and cough productive for clear/yellow phlegm. This evening around 22:00 he became more short of breath which prompted him to come to the ER. Patient denies fever, chills, abdominal pain, nausea, vomiting, diarrhea or constipation. He feels improved now. Patient has a PEG tube in place. He receives Boost 4 cans daily. He eats some things by mouth - liquids, soft and pureed foods. In the ER he is afebrile, mildly hypertensive, tachypneic at 29bpm, saturation of 96% on 6L NC ER Course: Zosyn Admission Exam Per Admitting Provider General: patient chronically ill in appearance, NC in place Skin: warm, dry, intact, no rashes or lesions HEENT: NC/AT, PERRL, EOMI, anicteric sclera, conjunctiva without injection, external ear normal to inspection and nontender, nares patent, moist mucus membranes, dentition intact, no oropharyngeal lesions, neck supple, s/p neck dissection on left, trachea midline, no LAD, no thyromegaly, no JVD Heart: +S1/S2, regular, no m/r/g Lungs: diminished breath sounds left base, coarse breath sounds right base, minimal wheezing, diminished breath sounds Abd: +BS, soft, NT/ND, no masses/organomegaly/ascites, PEG tube in place, no bleeding/erythema Ext: warm, 2+ pulses in UE/LE bilaterally, no clubbing/cyanosis, 1+ edema Neuro: nonfocal, patient AA&O x 4, speech intact, no facial droop, moving all extremities on command with equal strength 5/5 Principal Diagnosis Aspiration Pneumonia Discharge Exam Constitutional WD/WN, vitals as above + morbidly obese Eyes + anicteric sclerae ENMT Mouth: + oropharynx abnormality (dry MM, IMPROVED) Neck + abnormal visual inspection (left neck with surgical neck dissection,debulked) trach Respiratory normal respiratory effort (on NC); not tachypneic Auscultation: + diminished lung sounds (at bases) and + rales (bilateral); no crackles and no wheezes Cardiovascular RRR, no murmur, no edema Chest (Breasts) Chest: normal inspection of chest Gastrointestinal (Abdomen) normal bowel sounds, soft, nontender, no hepatosplenomegaly (morbid obesity) Musculoskeletal Extremities: extremities normal to inspection; no cyanosis and no clubbing Skin no rashes, warm and dry Neurologic moves all extremities and awake; no focal motor deficits Psychiatric A+Ox3, euthymic affect Lymphatic no lymphedema Discharge Data Allergies Allergy/AdvReac Type Severity Reaction Status Date / Time amoxicillin [From Augmentin] Allergy Unknown Verified 09/06/22 10:28 clavulanic acid Allergy Unknown Verified 09/06/22 10:28 [From Augmentin] levofloxacin [From Levaquin] AdvReac Intermediate Severe Verified 09/06/22 10:23 ankle muscle pain budesonide AdvReac Mild Thrush Verified 09/06/22 10:23 fluticasone AdvReac Mild Thrush Verified 09/06/22 10:23 [From Advair Diskus] salmeterol AdvReac Mild Thrush Verified 09/06/22 10:23 [From Advair Diskus] Consultations 09/06/22 04:37 ED Decision to Admit Stat Ordered Studies Chest X-Ray 09/06/22 01:58 XR chest 1V portable HISTORY: Dyspnea COMPARISON: Chest 04/27/2022. FINDINGS: Chronic elevation of the left hemidiaphragm and bibasilar linear densities likely representing subsegmental atelectasis. This remains unchanged. The heart remains enlarged. There is mild central pulmonary vascular congestion without overt edema. No pneumothorax. IMPRESSION: 1. Mild central pulmonary vascular congestion without overt edema. 2. Cardiomegaly and elevated left hemidiaphragm persists. ACT 112: Negative or not required by law. Electronically signed by: Vijay Garcia M.D. 09/06/2022 8:[address] 09/06/22 02:56 CT chest diagnostic wo con CT DOSE: 1227.28 mGy.cm HISTORY: eval for opacity vs. consolidation TECHNIQUE: Multiaxial CT images of the chest were performed without contrast. A dose lowering technique was utilized adhering to the principles of ALARA. COMPARISON: Chest CTA 01/12/2019. FINDINGS: The visualized liver, spleen, and adrenal glands unremarkable. There is chronic elevation of the left hemidiaphragm again noted. The heart is normal in size. No mediastinal or hilar lymphadenopathy. Normal esophagus. Normal caliber thoracic aorta. No acute fractures identified. No pneumothorax. A right azygos lobe is again noted. Bibasilar linear densities favor subsegmental atelectasis. There is mild respiratory motion artifact. There are few patchy groundglass and tree-in-bud nodular opacities within the right lung. This may represent a mild pneumonitis. IMPRESSION: 1. There are few patchy groundglass and tree-in-bud nodular opacities within the right lung. This may represent a mild pneumonitis. 2. Chronic elevation of the left hemidiaphragm again noted. ACT 112: Negative or not required by law. Electronically signed by: Vijay Garcia M.D. 09/06/2022 8:01 AM Hospital Course (1) Pneumonia: 72yo male with one week of progressive dyspnea, cough productive for yellow/clear sputum and increased oxygen requirement. CT of the chest with chronic elevation of left hemidiaphragm and possible developing RLL PNA. Patient most likely with chronic aspiration. He takes nutrition primarily through his PEG tube but some oral intake as well -- REPORTED on admit, however taking PO by mouth Acute and chronic respiratory failure Had saturated well on 6L on admit (using 2-4L at home, recently increased to 4L) BCx NGTD after 48 hours Sputum cx moderate normal dave, final pending at d/[facility], possible aspiration Prednisone 40mg, mucinex, nebs prn. added mucomyst VBG initially w/ pCO2 94-- asked to titrate O2 down --> repeat CO2 on VBG 84. Asked to try BiPAP, tolerated for about 30 minutes and stated abdominal distention. Req he follow up w/ PCP about repeat sleep study/alternative options w/ ref to sleep medicine. He is skeptical of a lot fo medical care since diaphragmatic paralysis following prior surgery Serum bicarb in AM 45--> 43 Of note, Prior speech eval w/ patient to not be taking ANYTHING by mouth, was eating [place] fries/cheeseburger from [facility] last evening. Discussed risks/recommendations, continues to take in PO Refused lexiscan, offered per prior cards recs. Continued on cardizem TID Rx for Augmentin -- liquid and instructed to PLEASE give through his G tube Prednisone PO to complete course, mucomyst nebs set (reports machine) O2 stable on 4L but encouraged to continue to titrate to maintain sats to avoid overcorrection Inquired about suction device at d/c however CM unable to assist and rec'd f/u with PCP outpatient if able to give Rx/arrange HIGHLY RECOMMENDED DECREASED/LIMITED PO, however patient admitted over 2 years ago and has been doing about the same status doing what he's doing. Remains a level 5 Ideally he would be giving his medications thought the G tube, however he takes them by mouth. (2) GERD (gastroesophageal reflux disease): Chronic -Continued Protonix (3) Hypertension: -Continued Lisinopril 20mg po daily (4) Hypothyroidism: Chronic. TSH wnl Continued Synthroid (5) COPD (chronic obstructive pulmonary disease): Chronic. Suspect mild exacerbation in setting of PNA Prednisone, duonebs, albuterol prn Mucomyst added Plan wanting to go home , breathing stable on 4L SpO2 96% Encouraged to titrate O2 to lowest setting to maintain sats to avoid overcorrection/CO2 retention Limit/avoid PO -- continues to do so/understands risks Total Time Total Time Spent Total Time Spent (In Minutes): 45 Discharge Plan Discharge Items Patient Disposition: Home - Self-Care Reason For Visit: SOB, HYPOXIA Discharge Diagnosis: Aspiration Pneumonia Goals: You have been hospitalized for an acute medical problem. During your stay at [facility], we have made an effort to correct the problem that brought you to the hospital while keeping you as comfortable as possible. Medications were used to bring your condition under control and your discharge instructions will include directions for any medications you should take after leaving the hospital. Please make sure you see your Primary Care Provider as part of your follow up plan. Activity: As commented below Non-emergency contact: Primary Care Provider Call non-emergency contact if: you have any medication questions, your symptoms worsen and you have a fever Follow-up/Referrals: Pelon Grossman MD [Physician] - Jovanna Carson CRNP [Primary Care Provider] - 09/14/22 9:05 am Diet: Other - See Diet Comment Diet Comment: nothing by mouth except oral hygiene recommended, nutirition through tube Addtl Attending Provider Instructions: You have been hospitalized for shortness of breath and possible aspiration pneumonia. Medications/antibiotics were provided and breathing treatments and you have been weaned back down to 4L. Per prior speech evaluations, you should not be taking anything at all by mouth except oral hygiene, and this is likely cause of your continued issues, however we have discussed this and you do continue to acknowledge the risks and continue to eat. At discharge, you are being sent on nebulizer Mucomyst to help with secretions, prednisone steroid for another 4 days of 40mg daily and Augmentin antibiotic one tablet twice a day for another 6 days. This should be given through your feeding tube to ensure absorption and not going into your lungs. You should follow up with primary care in the next 7-10 days to monitor your progress and to discuss possible suction device at home as unable to arrange inpatient. You may want to consider repeating sleep study/referral to [facility] as an outpatient as well. You did have some blood noted in your urine but no stu bleeding and hemoglobin has been stable. Would recommend referral to Urology as outpatient for further investigation if you are agreeable in follow up. Please follow up with cardiology as previously following, and continue the Cardizem three times daily as prescribed. You should return to the ER with increased shortness of breath, decreased oxygen saturations or for any other symptoms concerning for you. Take care! Pending Studies at Discharge: Yes Studies:: Sputum culture -- moderate normal dave on preliminary Stand-Alone Forms: My [facility] WO Funding, Smoking Cessation Medications and DC Order Prescriptions: New prednisone 20 mg Tablet 40 mg PO DAILY Qty: 4 0RF acetylcysteine 100 mg/mL (10 %) Solution 5 ml inhalation BIDR Qty: 90 0RF guaifenesin 100 mg/5 mL Liquid 200 mg PEG Q6H PRN (Reason: congestion) Qty: 473 0RF amoxicillin-pot clavulanate [Augmentin ES-600] 600-42.9 mg/5 mL suspension for reconstitution 7.3 ml feeding tube BID 6 Days Qty: 87.6 0RF Continued diltiazem HCl 30 mg tablet 30 mg PO Q8H Qty: 90 5RF gabapentin 300 mg capsule 600 mg PO QPM gabapentin 300 mg capsule 300 mg PO QAM mupirocin 2 % ointment 1 applic topical TID PRN (Reason: Dry Skin) albuterol sulfate 90 mcg/actuation HFA aerosol inhaler 2 puff inhalation QID PRN (Reason: shortness of breath or wheezing) tramadol 50 mg tablet 50 mg PO HS Label Comments: VIA FEEDING TUBE pantoprazole [Protonix] 40 mg Tablet,Delayed Release (Dr/Ec) 40 mg PO QAM Label Comments: VIA FEEDING TUBE lisinopril 20 mg tablet 20 mg PO QAM levothyroxine 175 mcg tablet 175 mcg PO DAILYBB meloxicam 15 mg tablet 15 mg PO QAM (DME) Oxygen Home Liters Per Minute Rx Instructions: 3 Liters aspirin 81 mg Capsule 81 mg PO QAM Discharge Orders: Discharge Order (Routine); Ordered 09/07/22 Ordered By: Lalitha Diaz/Other Patient Handouts: A1C Admission Data Admit Date/Time: 09/06/22 05:08 Attending Provider: Kathryn Metcalf Admit Provider: Alisa Bryan Primary Care Provider: Jovanna Carson Other Providers: Alisa Bryan Other Interventions: Discharge Summary Assessment (RN) Last Done: 09/07/22 16:13 Supervising Physician Co-Signing Physician Notes PA Supervision Note: I personally saw and examined the patient. I verified all hawthorne points and agree with LIANNA Heath with the following exceptions and/or additions: S-Pt feeling much better, ready for discharge to home, on baseline O2. O- Vitals reviewed Gen: [AAOx3, NAD] HEENT: [anicteric sclerae, EOMI, left neck scarring] CV: [RRR no mgr nl S1S2] Pulm: [upper airway coarse sounds, lungs CTAB] Abd: [+BS soft NT ND no masses or hernias, G tube in place] A/P-72 yo male here with chronic dysphagia and with recurrent aspiration, desires permissive aspiration, here with aspiration PNA and respiratory failure, acut brigido chronic with hypoxia-much improved continue antibiotics on discharge, stable for dc to home Coding Level of Care Code D/C DAY MANAGEMENT >30 MINS Diagnoses Pneumonia J18.9 GERD (gastroesophageal reflux disease) K21.9 Hypertension I10 Hypothyroidism E03.9 COPD (chronic obstructive pulmonary disease) J44.9
--- NOTE | 2022-09-07 12:42 | Communication Note ---
Date of Service: September 07, 2022 By CMS guidelines, a determination that the admission or continued stay is not medically necessary has been made by a member of the UR committee and a phy sician for this hospital stay, therefore a Code 44 will be completed and the Inpatient admission will be changed to outpatient.
--- NOTE | 2022-09-07 16:52 | Electrocardiogram Report ---
Test Reason : Blood Pressure : / mmHG Vent. Rate : 076 BPM Atrial Rate : 076 BPM P-R Int : 150 ms QRS Dur : 084 ms QT Int : 358 ms P-R-T Axes : 047 001 006 degrees QTc Int : 402 ms Normal sinus rhythm Normal ECG When compared with ECG of 06-SEP-2022 01:52, No significant change was found Confirmed by Luis Cohn ([id number]) on 09/07/2022 4:51:40 PM Referred By: Jovanna Carson Confirmed By:Luis Conh
--- NOTE | 2022-09-07 22:39 | Communication Note ---
Date of Service: September 07, 2022 By CMS guidelines, a determination that the admission or continued stay is not medically necessary has been made by a member of the UR committee and a ph ysician for this hospital stay, therefore a Code 44 will be completed and the Inpatient admission will be changed to outpatient. Kathryn Metcalf MD
== END 2022-09-07 16:53 | disposition home or self-care (01) ==
LOC: ED 01:45 → INTOOBSV 05:08 → EDINP 05:08 → SUATTDRO 05:08 → 3W 07:19
DX: K21.9 Gastro-esophageal reflux disease without esophagitis; Z88.1 Allergy status to other antibiotic agents; Z79.890 Hormone replacement therapy; Z88.0 Allergy status to penicillin; Z79.899 Other long term (current) drug therapy; Z88.5 Allergy status to narcotic agent; Z99.81 Dependence on supplemental oxygen; E66.01 Morbid (severe) obesity due to excess calories; E03.9 Hypothyroidism, unspecified; J69.0 Pneumonitis due to inhalation of food and vomit; Z79.82 Long term (current) use of aspirin; Z87.891 Personal history of nicotine dependence; Z93.1 Gastrostomy status; I10 Essential (primary) hypertension; J44.9 Chronic obstructive pulmonary disease, unspecified; Z88.8 Allergy status to other drugs, medicaments and biological substances; J96.20 Acute and chronic respiratory failure, unspecified whether with hypoxia or hypercapnia; Z68.41 Body mass index [BMI] 40.0-44.9, adult

== ENCOUNTER 2022-10-13 09:15 | Inpatient (IN) ==
[2022-10-13] MEDS ORDERED: methylPREDNISolone 125 MG/2 ML VIAL IV STA (09:54)
[2022-10-13] MEDS ORDERED: ALBUT/IPRATROP 3MG/0.5MG NEB 3 ML VIAL NEB ONE (09:54)
--- NOTE | 2022-10-13 10:22 | XRay Report ---
XR chest 1V portable CLINICAL HISTORY: sob TECHNIQUE: Single frontal radiograph of the chest was obtained. Comparison: Comparison is made to chest radiograph 09/06/[address] chest 09/06/2022 FINDINGS: No lines and tubes are seen. Cardiomegaly is noted. Prominence and cephalization of the vasculature i s seen. There is elevation of the left hemidiaphragm with associated atelectasis. No evidence of pleu ral effusion or pneumothorax. IMPRESSION: 1. Cardiomegaly and mild pulmonary edema. 2. Elevation of the left hemidiaphragm with associated atelectasis. ACT 112: Negative or not required by law. Electronically signed by: Joel Mercedes M.D. 10/13/2022 10:19 AM
[2022-10-13 10:25] LABS: Basophils # (auto) 0.03 K/uL (0-0.2); Basophils % (auto) 0.4 %; Eosinophils # (auto) 0.07 K/uL (0-0.50); Hematocrit (blood only) 43.8 % (40.1-51.0); Immature Granulocytes # (auto) 0.04 K/uL (0.00-0.02); Immature Granulocytes % (auto) 0.6 %; Lymphocytes # (auto) 0.81 K/uL (1.2-3.4); Lymphocytes % (auto) 11.4 %; Mean Corpuscular Hemoglobin 28.3 pg (25.0-34.0); Mean Corpuscular Hgb Conc 29.7 g/dL (32.0-36.0); Mean Corpuscular Volume 95.4 fL (80.0-100.0); Mean Platelet Volume 9.6 fL (9.4-12.4); Monocytes % (auto) 9.8 %; Neutrophils # (auto) 5.46 K/uL (1.4-6.5); Neutrophils % (auto) 76.8 %; Platelet Count 170 K/uL (130-400); RDW Coefficient of Variation 14.6 % (11.5-14.5); RDW Standard Deviation 50.7 fL (36.4-46.3); Red Blood Count 4.59 M/uL (4.63-6.08); White Blood Count 7.11 K/ul (4.8-10.8)
[2022-10-13 10:50] LABS: Troponin I High Sensitivity 26.3 pg/ml (0-20)
[2022-10-13 11:05] LABS: Alanine Aminotransferase 31 U/L (7-52); Albumin Globulin Ratio 1.2 (0.9-2); Albumin Level 3.8 gm/dl (3.4-5.0); Alkaline Phosphatase 43 U/L (34-104); Aspartate Aminotransferase 24 U/L (13-39); BUN Creatinine Ratio 31.4 (10-20); Bilirubin,Total 0.5 mg/dl (0.2-1.0); Blood Urea Nitrogen 27 mg/dl (6-23); Chloride 92 mmol/L (98-107); Est GFR (African American) 101.8 ml/min; Est GFR (Non-African American) 87.9 ml/min; Globulin 3.2 gm/dl (2.5-4.0); Glucose 136 mg/dl (70-99(Fasting)); Lipase < 3 U/L (11-82); Magnesium 2.1 mg/dl (1.7-2.4); Phosphorus 4.1 mg/dl (2.5-4.9); Potassium 4.6 mmol/L (3.5-5.1); Sodium 142 mmol/L (136-145)
--- NOTE | 2022-10-13 11:05 | Emergency Department Note ---
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 The patient was initially 90% on his home 3 L in triage but upon arriving to the room via wheelchair he was noted to drop to 68% on his 3 L subsequent placed on high percent nonrebreather and transition to BiPAP. They report increasing cough congestion and sputum production. Patient is supposed to be on CPAP at night but does not use this due to developing abdominal gas bloating. He does have a history of aspiration per the patient's and that is why he has his gastric tube. On arrival the patient is uncomfortable, dyspneic in moderate respiratory distress with accessory muscle use with diminished breath sounds at the left base and wheezes and rhonchi of bilateral lung up. He appears euvolemic to slightly dry. WBC, HCT and platelets within normal limits. Chemistry with bicarbonate >45 c/w chronic hypercapnia. VBG with pH of 7.28 and pCO2 of 108 increased from prior values. HS troponin 26.3 and BNP 211, non-specific. Procalcitonin is undetectable. Covid-19 PCR positive. EKG with suspected atrial topic rhythm without overt acute ischemia. Chest x- ray with question of vascular prominence and mild pulmonary edema however per my review suspected patchy densities greater in the right lung up is suspicious for pneumonia in the setting of the patient testing positive for COVID-19 on PCR. Respiratory status did improve after steroids, continuous Duoneb, and bipap. Patient and agree with plan for admission. Case was d/w Dr. Gomez, [facility] hospitalist who will evaluate the patient for admi ssion. Triage Nursing notes reviewed and agree them. Prior medical records reviewed Vital Signs: reviewed Differential diagnosis: Reactive airway disease, pneumonia, pneumothorax, COPD, CHF, infections, cardiac ischemia, pulmonary embolism, musculoskeletal, gastrointestinal, as well as other pathologies. ER treatment provided: See below. Diagnostics interpreted by me: ECG: Suspected atrial ectopic rhythm, 73 bpm, no overt ST elevation or dep ression, QTC 405, QRS 84. Significant artifact present. Cardiac Monitoring: An order for continuous cardiac monitoring was placed and demonstrated suspected atrial ectopic rhythm, 73 bpm, Laboratory studies: See below Imaging studies: See below Consultation(s): Case was d/w Dr. Gomez, [facility] hospitalist who will evaluate the patient for admission. 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 The patient was initially 90% on his home 3 L in triage but upon arriving to the room via wheelchair he was noted to drop to 68% on his 3 L subsequent placed on high percent nonrebreather and transition to BiPAP. They report increasing cough congestion and sputum production. Patient is supposed to be on CPAP at night but does not use this due to developing abdominal gas bloating. He does have a history of aspiration per the patient's and that is why he has his gastric tube. ROS: See above HPI for pertinent positives & negatives. A total of 10 systems reviewed and were otherwise negative. VITALS:See Below PHYSICAL EXAMINATION: GENERAL: Awake, alert, uncomfortable/ill-appearing HENT: Normocephalic, atraumatic. Oropharynx with dry mucous membranes and otherwise unremarkable. EYES: Normal conjunctiva. Sclera non-icteric. NECK: Supple. No nuchal rigidity. FROM. No JVD. RESPIRATORY: Dyspneic in moderate respiratory distress with accessory muscle use with diminished breath sounds at the left base and wheezes and rhonchi of bilateral lung up. CARDIAC: Regular rate, normal rhythm. Extremities warm and well perfused. Pulses equal. ABDOMEN: Soft, non-distended. No tenderness to palpation. No rebound or guarding. No masses. RECTAL: Deferred. MUSCULOSKELETAL: Chest examination reveals no tenderness. The back is symmetrical on inspection without obvious abnormality. There is no CVA tenderness to palpation. No joint edema. LOWER EXTREMITIES: Calves are equal size bilaterally and non-tender. No edema. No discoloration. NEURO: Normal sensorium. No sensory or motor deficits noted. SKIN: No rash or jaundice noted. ED COURSE: Critical Care: I have personally spent greater than 75 minutes of critical care time in the direct management of this patient. This includes bedside care, interpretation of diagnostic studies, and testing, discussion with consultants, patient, and family members, and other required patient management activities. This 75 minutes is in excess of all separately billable procedures. Matthew Mark MD Past Med/Surg History Medical History Arthritis BPH (benign prostatic hyperplasia) Claustrophobia Pt states "has doctor's excuse stating cannot wear mask" COPD (chronic obstructive pulmonary disease) Degenerative disc disease Diaphragmatic paralysis Left side, due to nerve "cut"/injury on neck Dysphagia Chronic r/t radiation (1999), hx EGD with dilation G tube feedings Boost GERD (gastroesophageal reflux disease) History of aspiration pneumonia 10/2019- per [facility] discharge summary "Due to eating solid food and aspirating in the setting of known severe dysphagia secondary to previous surgical neck dissection and 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 Has G-tube in place due to this, but chooses to continue to eat solid foods for comfort." History of cancer tonsil s/p 42 radiation treatments (1999) Hypertension Hypothyroidism Obesity On home oxygen therapy 3L via [place] PRN/HS Sleep apnea No device (hx CPAP in past) Surgical History History of colonoscopy History of difficult intubation EGD + attempted PEG tube placement: 04/10/19: Grade view 2, Glidescope#4, ETT 6.5 at [facility] History of esophagogastroduodenoscopy (EGD) History of tooth extraction Hx of excision of mass Cervical region after radiation treatments (1999) S/P percutaneous endoscopic gastrostomy (PEG) tube placement Laparoscopic placement of Gastrosomy tube (04/20/19): Grade view 2, Glidescope#4, ETT 6.5 at [facility] Family History Other Hypertension Lung disease No family history of adverse response to anesthesia Social History Smoking Status: Never smoker Second Hand Exposure: No; Hx Alcohol Use: No Hx Substance Use: No Preferred Language: Welsh Communication Ability: Effective Clinical Research Nurse Required: No Beliefs That Will Affect Care: None marital status: Current Living Situation: Spouse current occupational status: retired How many Children do You have: 1 Feels Safe at Home: Yes Safety Concerns: Feels Safe At This Time Assistive Devices: Denture - Upper, Denture - Lower, Glasses and Oxygen - Continuous Allergies Allergies Allergy/AdvReac Type Severity Reaction Status Date / Time amoxicillin [From Augmentin] Allergy Unknown Verified 10/13/22 14:55 clavulanic acid Allergy Unknown Verified 10/13/22 14:55 [From Augmentin] levofloxacin [From Levaquin] AdvReac Intermediate Severe Verified 10/13/22 14:55 ankle muscle pain budesonide AdvReac Mild Thrush Verified 10/13/22 14:55 fluticasone AdvReac Mild Thrush Verified 10/13/22 14:55 [From Advair Diskus] salmeterol AdvReac Mild Thrush Verified 10/13/22 14:55 [From Advair Diskus] Home Meds Home Medications Medication Instructions Recorded Confirmed pantoprazole 40 mg tablet,delayed 40 mg PO QAM 09/28/18 10/13/22 release (Protonix) albuterol sulfate 90 mcg/actuation 2 puff inhalation QID PRN 05/21/22 10/13/22 aerosol inhaler shortness of breath or wheezing gabapentin 300 mg capsule 300 mg feeding tube QAM 05/21/22 10/13/22 gabapentin 300 mg capsule 600 mg feeding tube QPM 05/21/22 10/13/22 levothyroxine 175 mcg tablet 175 mcg feeding tube DAILYBB 05/21/22 10/13/22 lisinopril 20 mg tablet 20 mg feeding tube QAM 05/21/22 10/13/22 mupirocin 2 % topical ointment 1 applic topical TID PRN Dry Skin 05/21/22 10/13/22 aspirin 81 mg capsule 81 mg feeding tube QAM 09/06/22 10/13/22 meloxicam 15 mg tablet 15 mg feeding tube QAM 09/06/22 10/13/22 diltiazem HCl 30 mg tablet 30 mg feeding tube Q8H 10/13/22 10/13/22 ipratropium 0.5 mg-albuterol 3 mg 3 ml inhalation QID PRN Shortness 10/13/22 10/13/22 (2.5 mg base)/3 mL nebulization Of Breath Or Wheezing soln Previous Rx's Medication Instructions Recorded acetylcysteine 100 mg/mL (10 %) 5 ml inhalation BIDR #90 mL 09/07/22 solution guaifenesin 100 mg/5 mL oral liquid 200 mg (10 mL) PEG Q6H PRN 09/07/22 congestion #473 mL Results & Data (ED) Vital Signs Vital Signs - 24 hr 10/13/22 09:28 10/13/22 09:37 10/13/22 10:14 Temperature 36.8 C Temperature Source Temporal Artery Scan Pulse Rate 79 Pulse Rate [Apical] Pulse Rate from SpO2 Sensor Respiratory Rate 18 Respiratory Effort / Characteristics Non-Labored Spontaneous Respiratory Depth Normal Respiratory Pattern Regular Blood Pressure 130/66 Blood Pressure [Left Arm] Blood Pressure Mean 87 Blood Pressure Mean [Left Arm] Blood Pressure Position Sitting Pulse Oximetry 96 68 L 96 Oxygen Delivery Method Nasal Cannula Nasal Cannula BiPAP Oxygen Flow Rate 4 3 Fraction of Inspired Oxygen Sepsis Recent Fever Within 48 Hours No Sepsis New/Unexplained Change in Mental Status N/A Sepsis Action Taken by Nursing No Action Required 10/13/22 10:30 10/13/22 10:52 10/13/22 09:48 Temperature Temperature Source Pulse Rate 89 74 Pulse Rate [Apical] 75 Pulse Rate from SpO2 Sensor 74 Respiratory Rate 33 H 30 H 31 H Respiratory Effort / Characteristics Non-Labored Spontaneous Spontaneous Short of Breath Respiratory Depth Normal Respiratory Pattern Tachypnea Regular Blood Pressure Blood Pressure [Left Arm] 146/86 H Blood Pressure Mean Blood Pressure Mean [Left Arm] 106 Blood Pressure Position Pulse Oximetry 96 94 91 Oxygen Delivery Method BiPAP Oxygen Flow Rate Fraction of Inspired Oxygen 100 Sepsis Recent Fever Within 48 Hours Sepsis New/Unexplained Change in Mental Status Sepsis Action Taken by Nursing 10/13/22 09:50 10/13/22 09:50 10/13/22 10:00 Temperature Temperature Source Pulse Rate 72 78 Pulse Rate [Apical] Pulse Rate from SpO2 Sensor 75 74 Respiratory Rate 32 H 29 H Respiratory Effort / Characteristics Respiratory Depth Respiratory Pattern Blood Pressure 158/99 H Blood Pressure [Left Arm] Blood Pressure Mean 118 Blood Pressure Mean [Left Arm] Blood Pressure Position Pulse Oximetry 94 96 Oxygen Delivery Method Oxygen Flow Rate Fraction of Inspired Oxygen Sepsis Recent Fever Within 48 Hours Sepsis New/Unexplained Change in Mental Status Sepsis Action Taken by Nursing 10/13/22 10:15 10/13/22 10:15 10/13/22 10:30 Temperature Temperature Source Pulse Rate 71 Pulse Rate [Apical] Pulse Rate from SpO2 Sensor 71 Respiratory Rate 33 H Respiratory Effort / Characteristics Respiratory Depth Respiratory Pattern Blood Pressure 143/87 H 146/86 H Blood Pressure [Left Arm] Blood Pressure Mean 105 106 Blood Pressure Mean [Left Arm] Blood Pressure Position Pulse Oximetry 95 Oxygen Delivery Method Oxygen Flow Rate Fraction of Inspired Oxygen Sepsis Recent Fever Within 48 Hours Sepsis New/Unexplained Change in Mental Status Sepsis Action Taken by Nursing 10/13/22 10:30 10/13/22 10:45 10/13/22 10:45 Temperature Temperature Source Pulse Rate 71 78 Pulse Rate [Apical] Pulse Rate from SpO2 Sensor 72 76 Respiratory Rate 31 H 32 H Respiratory Effort / Characteristics Respiratory Depth Respiratory Pattern Blood Pressure 152/98 H Blood Pressure [Left Arm] Blood Pressure Mean 116 Blood Pressure Mean [Left Arm] Blood Pressure Position Pulse Oximetry 96 96 Oxygen Delivery Method Oxygen Flow Rate Fraction of Inspired Oxygen Sepsis Recent Fever Within 48 Hours Sepsis New/Unexplained Change in Mental Status Sepsis Action Taken by Nursing 10/13/22 11:00 10/13/22 11:00 10/13/22 11:30 Temperature Temperature Source Pulse Rate 79 Pulse Rate [Apical] Pulse Rate from SpO2 Sensor 80 Respiratory Rate 29 H Respiratory Effort / Characteristics Respiratory Depth Respiratory Pattern Blood Pressure 159/93 H 161/98 H Blood Pressure [Left Arm] Blood Pressure Mean 115 119 Blood Pressure Mean [Left Arm] Blood Pressure Position Pulse Oximetry 98 Oxygen Delivery Method Oxygen Flow Rate Fraction of Inspired Oxygen Sepsis Recent Fever Within 48 Hours Sepsis New/Unexplained Change in Mental Status Sepsis Action Taken by Nursing 10/13/22 11:30 10/13/22 11:46 10/13/22 11:46 Temperature Temperature Source Pulse Rate 80 84 Pulse Rate [Apical] Pulse Rate from SpO2 Sensor 80 83 Respiratory Rate 26 H 27 H Respiratory Effort / Characteristics Respiratory Depth Respiratory Pattern Blood Pressure 142/76 H Blood Pressure [Left Arm] Blood Pressure Mean 98 Blood Pressure Mean [Left Arm] Blood Pressure Position Pulse Oximetry 94 92 Oxygen Delivery Method Oxygen Flow Rate Fraction of Inspired Oxygen Sepsis Recent Fever Within 48 Hours Sepsis New/Unexplained Change in Mental Status Sepsis Action Taken by Nursing 10/13/22 12:00 10/13/22 12:01 10/13/22 12:01 Temperature Temperature Source Pulse Rate 77 77 Pulse Rate [Apical] Pulse Rate from SpO2 Sensor 77 77 Respiratory Rate 27 H 34 H Respiratory Effort / Characteristics Respiratory Depth Respiratory Pattern Blood Pressure 137/115 H Blood Pressure [Left Arm] Blood Pressure Mean 122 Blood Pressure Mean [Left Arm] Blood Pressure Position Pulse Oximetry 92 92 Oxygen Delivery Method Oxygen Flow Rate Fraction of Inspired Oxygen Sepsis Recent Fever Within 48 Hours Sepsis New/Unexplained Change in Mental Status Sepsis Action Taken by Nursing Laboratory Data Attestation: I reviewed the patient's lab results. 10/13/22 10:07 10/13/22 10:07 Lab Results 10/13/22 10/13/22 10/13/22 Range/Units 09:53 10:07 10:07 WBC 7.11 (4.8-10.8) K/ul RBC 4.59 L (4.63-6.08) M/uL Hgb 13.0 L (14.0-18.0) g/dl Hct 43.8 (40.1-51.0) % MCV 95.4 (80.0-100.0) fL MCH 28.3 (25.0-34.0) pg MCHC 29.7 L (32.0-36.0) g/dL RDW Std Deviation 50.7 H (36.4-46.3) fL RDW Coeff of Valdemar 14.6 H (11.5-14.5) % Plt Count 170 (130-400) K/uL MPV 9.6 (9.4-12.4) fL Immature Gran % (Auto) 0.6 % Neut % (Auto) 76.8 % Lymph % (Auto) 11.4 % Concho % (Auto) 9.8 % Eos % (Auto) 1.0 % Baso % (Auto) 0.4 % Neut # (Auto) 5.46 (1.4-6.5) K/uL Lymph # (Auto) 0.81 L (1.2-3.4) K/uL [place]cho # (Auto) 0.70 (0.24-0.82) K/uL Eos # (Auto) 0.07 (0-0.50) K/uL Baso # (Auto) 0.03 (0-0.2) K/uL Immature Gran # (Auto) 0.04 H (0.00-0.02) K/uL VBG pH (7.36-7.41) VBG pCO2 (38-50) mmHg VBG pO2 mmHg VBG HCO3 mmol/L VBG O2 Saturation % VBG Base Excess mEq/L Sodium 142 (136-145) mmol/L Potassium 4.6 (3.5-5.1) mmol/L Chloride 92 L (98-107) mmol/L Carbon Dioxide > 45 H* (21-32) mmol/L Anion Gap TNP BUN 27 H (6-23) mg/dl Creatinine 0.86 (0.6-1.4) mg/dl Est Cr Clr Drug Dosing 112.0 ml/min Est GFR ( Amer) 101.8 ml/min Est GFR (Non-Af Amer) 87.9 ml/min BUN/Creatinine Ratio 31.4 H (10-20) Glucose 136 H (70-99(Fasting)) mg/dl Lactate (0.4-2.0) mmol/L Calcium 9.0 (8.5-10.1) mg/dl Phosphorus 4.1 (2.5-4.9) mg/dl Magnesium 2.1 (1.7-2.4) mg/dl Total Bilirubin 0.5 (0.2-1.0) mg/dl AST 24 (13-39) U/L ALT 31 (7-52) U/L Alkaline Phosphatase 43 (34-104) U/L Troponin I High Sens 26.3 H (0-20) pg/ml C-Reactive Protein (0-0.5) mg/dl B-Natriuretic Peptide (0-100) pg/ml Total Protein 7.0 (6.0-8.3) gm/dl Albumin 3.8 (3.4-5.0) gm/dl Globulin 3.2 (2.5-4.0) gm/dl Albumin/Globulin Ratio 1.2 (0.9-2) Lipase < 3 L (11-82) U/L Procalcitonin (0-0.5) ng/ml SARS-CoV-2 (PCR) POSITIVE A* (Negative) 10/13/22 10/13/22 10/13/22 Range/Units 10:07 10:07 10:07 WBC (4.8-10.8) K/ul RBC (4.63-6.08) M/uL Hgb (14.0-18.0) g/dl Hct (40.1-51.0) % MCV (80.0-100.0) fL MCH (25.0-34.0) pg MCHC (32.0-36.0) g/dL RDW Std Deviation (36.4-46.3) fL RDW Coeff of Valdemar (11.5-14.5) % Plt Count (130-400) K/uL MPV (9.4-12.4) fL Immature Gran % (Auto) % Neut % (Auto) % Lymph % (Auto) % Concho % (Auto) % Eos % (Auto) % Baso % (Auto) % Neut # (Auto) (1.4-6.5) K/uL Lymph # (Auto) (1.2-3.4) K/uL [place]cho # (Auto) (0.24-0.82) K/uL Eos # (Auto) (0-0.50) K/uL Baso # (Auto) (0-0.2) K/uL Immature Gran # (Auto) (0.00-0.02) K/uL VBG pH (7.36-7.41) VBG pCO2 (38-50) mmHg VBG pO2 mmHg VBG HCO3 mmol/L VBG O2 Saturation % VBG Base Excess mEq/L Sodium (136-145) mmol/L Potassium (3.5-5.1) mmol/L Chloride (98-107) mmol/L Carbon Dioxide (21-32) mmol/L Anion Gap BUN (6-23) mg/dl Creatinine (0.6-1.4) mg/dl Est Cr Clr Drug Dosing ml/min Est GFR ( Amer) ml/min Est GFR (Non-Af Amer) ml/min BUN/Creatinine Ratio (10-20) Glucose (70-99(Fasting)) mg/dl Lactate 0.9 (0.4-2.0) mmol/L Calcium (8.5-10.1) mg/dl Phosphorus (2.5-4.9) mg/dl Magnesium (1.7-2.4) mg/dl Total Bilirubin (0.2-1.0) mg/dl AST (13-39) U/L ALT (7-52) U/L Alkaline Phosphatase (34-104) U/L Troponin I High Sens (0-20) pg/ml C-Reactive Protein (0-0.5) mg/dl B-Natriuretic Peptide 211 H (0-100) pg/ml Total Protein (6.0-8.3) gm/dl Albumin (3.4-5.0) gm/dl Globulin (2.5-4.0) gm/dl Albumin/Globulin Ratio (0.9-2) Lipase (11-82) U/L Procalcitonin < 0.05 (0-0.5) ng/ml SARS-CoV-2 (PCR) (Negative) 10/13/22 10/13/22 Range/Units 10:07 11:27 WBC (4.8-10.8) K/ul RBC (4.63-6.08) M/uL Hgb (14.0-18.0) g/dl Hct (40.1-51.0) % MCV (80.0-100.0) fL MCH (25.0-34.0) pg MCHC (32.0-36.0) g/dL RDW Std Deviation (36.4-46.3) fL RDW Coeff of Valdemar (11.5-14.5) % Plt Count (130-400) K/uL MPV (9.4-12.4) fL Immature Gran % (Auto) % Neut % (Auto) % Lymph % (Auto) % Concho % (Auto) % Eos % (Auto) % Baso % (Auto) % Neut # (Auto) (1.4-6.5) K/uL Lymph # (Auto) (1.2-3.4) K/uL [place] # (Auto) (0.24-0.82) K/uL Eos # (Auto) (0-0.50) K/uL Baso # (Auto) (0-0.2) K/uL Immature Gran # (Auto) (0.00-0.02) K/uL VBG pH 7.28 L (7.36-7.41) VBG pCO2 108 H (38-50) mmHg VBG pO2 35 mmHg VBG HCO3 51 mmol/L VBG O2 Saturation < 60.0 % VBG Base Excess 18.3 mEq/L Sodium (136-145) mmol/L Potassium (3.5-5.1) mmol/L Chloride (98-107) mmol/L Carbon Dioxide (21-32) mmol/L Anion Gap BUN (6-23) mg/dl Creatinine (0.6-1.4) mg/dl Est Cr Clr Drug Dosing ml/min Est GFR ( Amer) ml/min Est GFR (Non-Af Amer) ml/min BUN/Creatinine Ratio (10-20) Glucose (70-99(Fasting)) mg/dl Lactate (0.4-2.0) mmol/L Calcium (8.5-10.1) mg/dl Phosphorus (2.5-4.9) mg/dl Magnesium (1.7-2.4) mg/dl Total Bilirubin (0.2-1.0) mg/dl AST (13-39) U/L ALT (7-52) U/L Alkaline Phosphatase (34-104) U/L Troponin I High Sens (0-20) pg/ml C-Reactive Protein 3.11 H (0-0.5) mg/dl B-Natriuretic Peptide (0-100) pg/ml Total Protein (6.0-8.3) gm/dl Albumin (3.4-5.0) gm/dl Globulin (2.5-4.0) gm/dl Albumin/Globulin Ratio (0.9-2) Lipase (11-82) U/L Procalcitonin (0-0.5) ng/ml SARS-CoV-2 (PCR) (Negative) Administered Medications Albuterol (Albut/Ipratrop 3mg/0.5mg Neb 3 Ml Vial) 3 ml NEB QIDR [facility]; Protocol Stop: 11/12/22 14:59 Last Admin: 10/13/22 19:56 Dose: 3 ml Documented By: Admin: 10/13/22 14:30 Dose: 3 ml Documented By: KMS Diltiazem HCl (Diltiazem Hcl 30 Mg Tab) 30 mg PO Q8H [facility] Stop: 11/12/22 19:14 Last Admin: 10/13/22 20:58 Dose: 30 mg Documented By: CR Gabapentin (Gabapentin 250 Mg/5 Ml 470 Ml Btl) 600 mg PEG QPM PEDRO Stop: 11/12/22 20:59 Last Admin: 10/13/22 20:59 Dose: 600 mg Documented By: CR Azithromycin 500 mg/ Dextrose 255 mls @ 127.5 mls/hr IV Q24H PEDRO Stop: 10/16/22 14:59 Last Infusion: 10/13/22 19:07 Dose: 0 mls/hr Documented By: Admin: 10/13/22 17:07 Dose: 127.5 mls/hr Documented By: TW Methylprednisolone 40 mg/ (Syringe) 0.64 mls @ 1.5 mls/min IV Q8H [facility] Stop: 11/12/22 20:59 Last Admin: 10/13/22 20:59 Dose: 1.5 mls/min Documented By: CARISA Nutritional Formula (Patient's Own Enteral Feeding [Boost High Protein]) 237 ml PEG QID@0700,1200,1600,2000 [facility] Stop: 11/12/22 19:59 Last Admin: 10/13/22 20:59 Dose: 237 ml Documented By: CR Olanzapine (Olanzapine 10 Mg/2.1 Ml Sdv) 5 mg IM Q6H PRN PRN Reason: delirium at risk to self or ot Stop: 11/12/22 14:21 Last Admin: 10/13/22 21:49 Dose: 5 mg Documented By: Admin: 10/13/22 16:34 Dose: 5 mg Documented By: AM Discontinued Medications Albuterol (Albut/Ipratrop 3mg/0.5mg Neb 3 Ml Vial) 12 ml NEB ONE ONE; Protocol Stop: 10/13/22 09:55 Last Admin: 10/13/22 09:58 Dose: 12 ml Documented By: [facility] Remdesivir 200 mg/ Sodium (Chloride) 250 mls @ 125 mls/hr IV NOW ONE; Protocol Stop: 10/13/22 16:29 Last Infusion: 10/13/22 17:14 Dose: 0 mls/hr Documented By: Admin: 10/13/22 14:50 Dose: 125 mls/hr Documented By: AM Ioversol (Optiray 320 500ml) 120 ml IV ONCE ONE Stop: 10/13/22 13:49 Last Admin: 10/13/22 13:49 Dose: 120 ml Documented By: MARYURI Methylprednisolone (Methylprednisolone 125 Mg/2 Ml Vial) 125 mg IV NOW STA Stop: 10/13/22 09:55 Last Admin: 10/13/22 10:18 Dose: 125 mg Documented By: ERICKA Imaging Data Radiologist's Impression: Chest X-Ray 10/13/22 09:37 XR chest 1V portable CLINICAL HISTORY: sob TECHNIQUE: Single frontal radiograph of the chest was obtained. Comparison: Comparison is made to chest radiograph 09/06/[address] chest 09/06/2022 FINDINGS: No lines and tubes are seen. Cardiomegaly is noted. Prominence and cephalization of the vasculature is seen. There is elevation of the left hemidiaphragm with associated atelectasis. No evidence of pleural effusion or pneumothorax. IMPRESSION: 1. Cardiomegaly and mild pulmonary edema. 2. Elevation of the left hemidiaphragm with associated atelectasis. ACT 112: Negative or not required by law. Electronically signed by: Joel Mercedes M.D. 10/13/2022 10:19 AM Discharge Plan Visit Data Chief Complaint: Shortness of Breath/Dyspnea Stated Complaint: SOB ED Provider: Matthew Mark Discharge Problem: Acute on chronic respiratory failure with hypoxia and hypercapnia, Pneumonia due to COVID-19 virus, Elevated troponin Patient Disposition: Admitted As Inpatient Discharge Instructions Interventions: ED Discharge Assessment Last Done: 10/13/22 14:21
--- NOTE | 2022-10-13 11:37 | Electrocardiogram Report ---
Test Reason : Blood Pressure : / mmHG Vent. Rate : 073 BPM Atrial Rate : 098 BPM P-R Int : 000 ms QRS Dur : 084 ms QT Int : 368 ms P-R-T Axes : 000 -05 004 degrees QTc Int : 405 ms Poor data quality, interpretation may be adversely affected Probable Sinus rhythm Abnormal ECG When compared with ECG of 06-SEP-2022 17:52, No significant change Confirmed by Nixon Eduardo ([id number]) on 10/13/2022 11:37:21 AM Referred By: REFERRED SELF Confirmed By:Nixon Eduardo
[2022-10-13 11:53] LABS: Base Excess VBG 18.3 mEq/L; HCO3 VBG 51 mmol/L; Oxygen Saturation VBG < 60.0 %; PCO2 VBG 108 mmHg (38-50); PO2 VBG 35 mmHg; pH VBG 7.28 (7.36-7.41)
--- NOTE | 2022-10-13 12:12 | History & Physical Report ---
Date of Service October 13, 2022 Assessment & Plan (1) Acute on chronic respiratory failure with hypoxia and hypercapnia: Plan: Suspect COVID-19 with COPD exacerbation. Difficult to rule out aspiration pneumonitis however no pneumonia suspected based on white blood count and negative procalcitonin. Will repeat procalcitonin in 48 hours to continue to assess for secondary bacterial infection. Continue BiPAP overnight to help with acute hypercapnia causing acute re spiratory acidosis CT for PE pending (2) COVID-19: Plan: Unvaccinated 1st day of illness Oct 09 BiPAP on admission mainly for hypercapnia, CRP 3.11 on admission. Isolation precautions Solu-medrol chosen over dexamethasone due to concurrent COPD exacerbation. Continue at 40 mg IV every 8 hourly. Start remdesivir and continue for 5 days or during hospitalization (3) COPD exacerbation: Plan: DuoNebs 4 times daily Solu-Medrol as above Flutter valve Azithromycin 500 mg daily for 3 days (4) Acute metabolic encephalopathy: Plan: CT head pending ? CO2 retention - if he improves overnight likely due to this ? infectious due to COVID ? iatrogenic - stop tramadol Suspect multifactorial as above (5) Hallucinations: Plan: See above for acute metabolic encephalopathy Zyprexa as needed if at risk to self or others (6) Acquired elevated hemidiaphragm: Plan: secondary to prior neck surgery - ?consolidation vs. atelectasis above this - CT chest (7) Hypertension: Plan: Continue diltiazem and lisinopril via PEG (8) Hypothyroidism: Plan: Continue levothyroxine via PEG TSH WNL in September 2022 (9) S/P percutaneous endoscopic gastrostomy (PEG) tube placement: Plan: 2/2 aspiration risk NPO Consult dietary for PEG tube feedings (10) Peripheral neuropathy: Plan: Continue gabapentin Plan VTE Prophylaxis - deferred pending CT for PE Diet - strict n.p.o. -all medications should be given via his PEG tube Disposition - admit to PCU Admission and Anticipated Discharge Date Admission Date: October 13, 2022 History of Present Illness Chief Complaint: Shortness of breath, acute confusion/hallucinations Primary Care Provider: SEMAJ Blair Kelsey Rush is a 72-year-old male with COPD, left diaphragmatic paralysis following neck surgery with chronic hypoxic hypercapnic respiratory failure on 3 LPM O2 at home who presents to the ER with shortness of breath. Majority of history obtained from his and daughter at bedside due to respiratory distress from patient and confusion while on BiPAP. He was recently admitted to [facility] from September 06 to 2021 with aspiration pneumonia. Patient has a chronic aspiration risk and previously advised to take nothing by mouth although does not stick by this and was eating Yi fries and a cheeseburger last admission. He was treated with Zosyn and discharged on Augmentin and a tapering course of prednisone for his COPD. Managed to get back to his baseline. However started to deteriorate on Wednesday (4 days ago). Generally not feeling well, more confused, delusions and visual hallucinations started. He became progressively more short of breath and O2 sats reportedly dropped to the mid 60s. Coughing more with thicker sputum. However on arriving to the ER his O2 sats were initially 90% on his home 3LPM O2 but upon arriving in the room via wheelchair his O2 sats were noted to have dropped with good waveform to 68%. In the ER he was therefore placed on BiPAP 07/07, RR 12, FiO2 60% and now maintaining saturations > 90%. He is intermittently confused and has been trying to get out of bed but clearly unable to support his own weight. SARS COV-2 PCR positive. He is not vaccinated. Allergies Allergy/AdvReac Type Severity Reaction Status Date / Time amoxicillin [From Augmentin] Allergy Unknown Verified 10/13/22 14:55 clavulanic acid Allergy Unknown Verified 10/13/22 14:55 [From Augmentin] levofloxacin [From Levaquin] AdvReac Intermediate Severe Verified 10/13/22 14:55 ankle muscle pain budesonide AdvReac Mild Thrush Verified 10/13/22 14:55 fluticasone AdvReac Mild Thrush Verified 10/13/22 14:55 [From Advair Diskus] salmeterol AdvReac Mild Thrush Verified 10/13/22 14:55 [From Advair Diskus] Home Medications Medication Instructions Recorded Confirmed Type pantoprazole 40 mg tablet,delayed 40 mg PO QAM 09/28/18 10/13/22 History release (Protonix) albuterol sulfate 90 mcg/actuation 2 puff inhalation QID PRN 05/21/22 10/13/22 History aerosol inhaler shortness of breath or wheezing gabapentin 300 mg capsule 300 mg feeding tube QAM 05/21/22 10/13/22 History gabapentin 300 mg capsule 600 mg feeding tube QPM 05/21/22 10/13/22 History levothyroxine 175 mcg tablet 175 mcg feeding tube DAILYBB 05/21/22 10/13/22 History lisinopril 20 mg tablet 20 mg feeding tube QAM 05/21/22 10/13/22 History mupirocin 2 % topical ointment 1 applic topical TID PRN Dry Skin 05/21/22 10/13/22 History aspirin 81 mg capsule 81 mg feeding tube QAM 09/06/22 10/13/22 History meloxicam 15 mg tablet 15 mg feeding tube QAM 09/06/22 10/13/22 History acetylcysteine 100 mg/mL (10 %) 5 ml inhalation BIDR #90 mL 09/07/22 10/13/22 Rx solution guaifenesin 100 mg/5 mL oral liquid 200 mg (10 mL) PEG Q6H PRN 09/07/22 10/13/22 Rx congestion #473 mL diltiazem HCl 30 mg tablet 30 mg feeding tube Q8H 10/13/22 10/13/22 History ipratropium 0.5 mg-albuterol 3 mg 3 ml inhalation QID PRN Shortness 10/13/22 10/13/22 History (2.5 mg base)/3 mL nebulization Of Breath Or Wheezing soln Past Med/Surg History Medical History Arthritis BPH (benign prostatic hyperplasia) Claustrophobia Pt states "has doctor's excuse stating cannot wear mask" COPD (chronic obstructive pulmonary disease) Degenerative disc disease Diaphragmatic paralysis Left side, due to nerve "cut"/injury on neck Dysphagia Chronic r/t radiation (1999), hx EGD with dilation G tube feedings Boost GERD (gastroesophageal reflux disease) History of aspiration pneumonia 10/2019- per [facility] discharge summary "Due to eating solid food and aspirating in the setting of known severe dysphagia secondary to previous surgical neck dissection and 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 Has G-tube in place due to this, but chooses to continue to eat solid foods for comfort." History of cancer tonsil s/p 42 radiation treatments (1999) Hypertension Hypothyroidism Obesity On home oxygen therapy 3L via [place] PRN/HS Sleep apnea No device (hx CPAP in past) Surgical History History of colonoscopy History of difficult intubation EGD + attempted PEG tube placement: 04/10/19: Grade view 2, Glidescope#4, ETT 6.5 at [facility] History of esophagogastroduodenoscopy (EGD) History of tooth extraction Hx of excision of mass Cervical region after radiation treatments (1999) S/P percutaneous endoscopic gastrostomy (PEG) tube placement Laparoscopic placement of Gastrosomy tube (04/20/19): Grade view 2, Glidescope#4, ETT 6.5 at [facility] Family History Other Hypertension Lung disease No family history of adverse response to anesthesia Social History Smoking Status: Never smoker Second Hand Exposure: No; Hx Alcohol Use: No Hx Substance Use: No Preferred Language: Spanish Communication Ability: Effective Movie Star Required: No Beliefs That Will Affect Care: None marital status: Current Living Situation: Spouse current occupational status: retired How many Children do You have: 1 Feels Safe at Home: Yes Safety Concerns: Feels Safe At This Time Assistive Devices: Denture - Upper, Denture - Lower, Glasses and Oxygen - Continuous Review of Systems Review of Systems: All systems reviewed & are unremarkable except as noted in Subjective Physical Exam Constitutional: well developed and + acute distress (respiratory); + not well nourished Eyes: PERRL, conjunctivae normal, anicteric sclerae Respiratory: + respiratory distress, + labored breathing, + uses accessory muscles, + cough and + audible wheezes; + abnormal respiratory effort, + not able to speak in complete sentence, expiratory phase not prolonged and no stridor Auscultation: + rhonchi and + wheezes (expiratory throughout); breath sounds present and no diminished lung sounds Cardiovascular: Rate/Rhythm: regular rate and regular rhythm Heart Sounds: no murmur Extremities: normal capillary refill and + pedal edema (1+ b/l equal pre-tibial pitting); no calf tenderness Gastrointestinal (Abdomen): normal bowel sounds, soft, nontender, no hepatosplenomegaly Musculoskeletal: no cyanosis or clubbing, extremities motor strength 5/5 Skin: no rashes, warm and dry Neurologic: moves all extremities, awake and + confused; no focal motor deficits (no lateralizing deficit) Psychiatric: Orientation: alert and oriented to person; + not oriented to place and + not oriented to time Results & Data Results & Data ([facility]) Vital Signs (Past 12 Hours) Vital Signs Temp Pulse Pulse Resp BP BP Pulse Ox 10/13/22 11:46 142/76 H 10/13/22 11:46 84 27 H 92 10/13/22 11:30 80 26 H 94 10/13/22 11:30 161/98 H 10/13/22 11:00 79 29 H 98 10/13/22 11:00 159/93 H 10/13/22 10:45 78 32 H 96 10/13/22 10:45 152/98 H 10/13/22 10:30 71 31 H 96 10/13/22 10:30 146/86 H 10/13/22 10:15 71 33 H 95 10/13/22 10:15 143/87 H 10/13/22 10:00 78 29 H 96 10/13/22 09:50 72 32 H 94 10/13/22 09:50 158/99 H 10/13/22 09:48 74 31 H 91 10/13/22 10:52 89 30 H 94 10/13/22 10:30 75 33 H 146/86 H 96 10/13/22 10:14 96 10/13/22 09:37 68 L 10/13/22 09:28 36.8 C 79 18 130/66 96 O2 Del Method O2 Flow Rate FiO2 10/13/22 11:46 10/13/22 11:46 10/13/22 11:30 10/13/22 11:30 10/13/22 11:00 10/13/22 11:00 10/13/22 10:45 10/13/22 10:45 10/13/22 10:30 10/13/22 10:30 10/13/22 10:15 10/13/22 10:15 10/13/22 10:00 10/13/22 09:50 10/13/22 09:50 10/13/22 09:48 10/13/22 10:52 100 10/13/22 10:30 BiPAP 10/13/22 10:14 BiPAP 10/13/22 09:37 Nasal Cannula 3 10/13/22 09:28 Nasal Cannula 4 Laboratory Results Abnormal lab results 10/13/22 10/13/22 10/13/22 Range/Units 09:53 10:07 10:07 RBC 4.59 L (4.63-6.08) M/uL Hgb 13.0 L (14.0-18.0) g/dl MCHC 29.7 L (32.0-36.0) g/dL RDW Std Deviation 50.7 H (36.4-46.3) fL RDW Coeff of Valdemar 14.6 H (11.5-14.5) % Lymph # (Auto) 0.81 L (1.2-3.4) K/uL Immature Gran # (Auto) 0.04 H (0.00-0.02) K/uL Chloride 92 L (98-107) mmol/L Carbon Dioxide > 45 H* (21-32) mmol/L BUN 27 H (6-23) mg/dl BUN/Creatinine Ratio 31.4 H (10-20) Glucose 136 H (70-99(Fasting)) mg/dl Troponin I High Sens 26.3 H (0-20) pg/ml B-Natriuretic Peptide (0-100) pg/ml Lipase < 3 L (11-82) U/L SARS-CoV-2 (PCR) POSITIVE A* (Negative) 10/13/22 Range/Units 10:07 RBC (4.63-6.08) M/uL Hgb (14.0-18.0) g/dl MCHC (32.0-36.0) g/dL RDW Std Deviation (36.4-46.3) fL RDW Coeff of Valdemar (11.5-14.5) % Lymph # (Auto) (1.2-3.4) K/uL Immature Gran # (Auto) (0.00-0.02) K/uL Chloride (98-107) mmol/L Carbon Dioxide (21-32) mmol/L BUN (6-23) mg/dl BUN/Creatinine Ratio (10-20) Glucose (70-99(Fasting)) mg/dl Troponin I High Sens (0-20) pg/ml B-Natriuretic Peptide 211 H (0-100) pg/ml Lipase (11-82) U/L SARS-CoV-2 (PCR) (Negative) Diagnostic Findings XR chest 1V portable CLINICAL HISTORY: sob TECHNIQUE: Single frontal radiograph of the chest was obtained. Comparison: Comparison is made to chest radiograph 09/06/[address] chest 09/06/2022 FINDINGS: No lines and tubes are seen. Cardiomegaly is noted. Prominence and cephalization of the vasculature is seen. There is elevation of the left hemidiaphragm with associated atelectasis. No evidence of pleural effusion or pneumothorax. IMPRESSION: 1. Cardiomegaly and mild pulmonary edema. 2. Elevation of the left hemidiaphragm with associated atelectasis. Medications Administered ER medications given: Solu-Medrol 125 mg IV DuoNeb 12 mL nebulizer ECG Indication: SOB/dyspnea Rhythm: normal sinus Findings: no acute ischemic change Comparison ECG Date: from (September 06, 2022) Change: no significant change Code Status & VTE Plan Code Status Full - as discussed with the patient VTE Prophylaxis Plan VTE Prophylaxis will be ordered: Yes PG Care Time/CCT Total # of Minutes Spent Total Time Spent with Patient: Total time spent is greater than 50% in coordination of care (as documented) at patient's floor/unit and/or counseling patient: Coding Level of Care Code 98672 INT INP/OBS CARE 3/75MIN Diagnoses Acute on chronic respiratory failure with hypoxia and hypercapnia J96.21; J96.22 COVID-19 U07.1 COPD exacerbation J44.1 Acute metabolic encephalopathy G93.41 Hallucinations R44.3 Acquired elevated hemidiaphragm J98.6 Hypertension I10 Hypothyroidism E03.9 S/P percutaneous endoscopic gastrostomy (PEG) tube placement Z93.1 Peripheral neuropathy G62.9
[2022-10-13] MEDS ORDERED: OPTIRAY 320 500ml IV ONE (13:48)
[2022-10-13] MEDS: ALBUT/IPRATROP 3MG/0.5MG NEB 3 ML VIAL NEB SCH ×2 (14:30→19:56)
[2022-10-13] MEDS ORDERED: REMDESIVIR 200 MG in SODIUM CHLORIDE 0.9% 210 ML IV ONE (14:30)
[2022-10-13] MEDS ORDERED: AZITHROMYCIN 500 MG in DEXTROSE 5% 250 ML IV SCH (15:00)
[2022-10-13] MEDS: OLANZapine 10 MG/2.1 ML SDV IM PRN ×2 (16:34→21:49)
[2022-10-13 19:08] LABS: Carbon Dioxide > 45 mmol/L (21-32)
[2022-10-13] MEDS ORDERED: guaiFENesin SUGAR FREE 100 MG/5 ML UDC GT PRN (19:13)
[2022-10-13] MEDS ORDERED: TUBE FEEDING WATER FLUSH GT SCH (20:00)
[2022-10-13] MEDS: dilTIAZem HCL 30 MG TAB PO SCH (20:58)
[2022-10-13] MEDS: methylPREDNISolone 40 MG in SYRINGE 0 ML IV SCH (20:59)
[2022-10-13] MEDS: ENTERAL FEEDING PEG SCH (20:59)
[2022-10-13] MEDS ORDERED: GABAPENTIN 250 MG/5 ML 470 ML BTL PEG SCH (21:00)
[2022-10-13] MEDS ORDERED: GABAPENTIN 300 MG CAP PO SCH (21:00)
[2022-10-14] MEDS: dilTIAZem HCL 30 MG TAB PO SCH ×2 (03:27→12:35)
[2022-10-14] MEDS: methylPREDNISolone 40 MG in SYRINGE 0 ML IV SCH (05:12)
[2022-10-14] MEDS: OLANZapine 10 MG/2.1 ML SDV IM PRN (05:12)
[2022-10-14] MEDS ORDERED: LEVOTHYROXINE SODIUM 175 MCG TABLET PEG SCH (06:30)
[2022-10-14 06:37] LABS: Hematocrit (blood only) 44.3 % (40.1-51.0); Hemoglobin 12.9 g/dl (14.0-18.0); Mean Corpuscular Hemoglobin 28.3 pg (25.0-34.0); Mean Corpuscular Hgb Conc 29.1 g/dL (32.0-36.0); Mean Corpuscular Volume 97.1 fL (80.0-100.0); Mean Platelet Volume 9.6 fL (9.4-12.4); Platelet Count 175 K/uL (130-400); RDW Coefficient of Variation 14.6 % (11.5-14.5); RDW Standard Deviation 52.1 fL (36.4-46.3); Red Blood Count 4.56 M/uL (4.63-6.08); White Blood Count 15.08 K/ul (4.8-10.8)
[2022-10-14] MEDS: ENTERAL FEEDING PEG SCH (07:00)
[2022-10-14] MEDS ORDERED: ACETYLCYSTEINE 10% INHAL SOLN 4 ML **DISPENSED BY RESP. INH SCH (07:00)
--- NOTE | 2022-10-14 07:01 | Communication Note ---
Date of Service: October 13, 2022 Patient unable to lie flat for CT head and CT for PE at this time. Become agitated and trying to get out of bed. Security called. I was able to re-orient ate patient back into bed at this time and explained importance of not taking off his BiPAP. Will d/c CTs at this time as we other adequate explanations of his respiratory illness and confusion, hopefully he has improved enough tomorrow to get these but will defer to provider who takes over tomorrow to re-order if necessary.
[2022-10-14 07:04] LABS: Alanine Aminotransferase 26 U/L (7-52); Albumin Globulin Ratio 1.3 (0.9-2); Albumin Level 3.9 gm/dl (3.4-5.0); Alkaline Phosphatase 44 U/L (34-104); Aspartate Aminotransferase 20 U/L (13-39); BUN Creatinine Ratio 31.3 (10-20); Bilirubin,Total 0.5 mg/dl (0.2-1.0); Blood Urea Nitrogen 25 mg/dl (6-23); Calcium 8.5 mg/dl (8.5-10.1); Carbon Dioxide > 45 mmol/L (21-32); Chloride 93 mmol/L (98-107); Creatinine Clr Calc Pharmacy 120.4 ml/min; Est GFR (African American) 104.9 ml/min; Est GFR (Non-African American) 90.5 ml/min; Globulin 2.9 gm/dl (2.5-4.0); Glucose 162 mg/dl (70-99(Fasting)); Potassium 4.8 mmol/L (3.5-5.1); Sodium 143 mmol/L (136-145); Total Protein 6.8 gm/dl (6.0-8.3)
[2022-10-14] MEDS: ALBUT/IPRATROP 3MG/0.5MG NEB 3 ML VIAL NEB SCH ×4 (07:42→15:19)
[2022-10-14 07:44] LABS: Basophils # (auto) 0.02 K/uL (0-0.2); Basophils % (auto) 0.1 %; Immature Granulocytes # (auto) 0.09 K/uL (0.00-0.02); Immature Granulocytes % (auto) 0.6 %; Lymphocytes # (auto) 0.58 K/uL (1.2-3.4); Lymphocytes % (auto) 3.8 %; Monocytes # (auto) 0.51 K/uL (0.24-0.82); Monocytes % (auto) 3.4 %; Neutrophils # (auto) 13.88 K/uL (1.4-6.5); Neutrophils % (auto) 92.1 %
[2022-10-14 08:03] LABS: Oxygen Saturation ABG 96.3 % (90-95); PO2 ABG 87 mmHg (80-95)
[2022-10-14 08:13] LABS: Allen Test Pos (Pos); PCO2 ABG > 125 mmHg (35-46)
--- NOTE | 2022-10-14 08:40 | Hospitalist Progress Note ---
Date of Service October 14, 2022 Assessment & Plan (1) Acute on chronic respiratory failure with hypoxia and hypercapnia: Plan: Suspect COVID-19 with COPD exacerbation. Difficult to rule out aspiration pneumonitis however no pneumonia suspected based on white blood count and negative procalcitonin. Will repeat procalcitonin in 48 hours to continue to assess for secondary bacterial infection. Continue BiPAP overnight to help with acute hypercapnia causing acute re spiratory acidosis CT for PE pending (2) COVID-19: Plan: Unvaccinated day of illness Oct 09 BiPAP on admission mainly for hypercapnia, CRP 3.11 on admission. Isolation precautions Solu-medrol chosen over dexamethasone due to concurrent COPD exacerbation. Continue at 40 mg IV every 8 hourly. Start remdesivir and continue for 5 days or during hospitalization (3) COPD exacerbation: Plan: DuoNebs 4 times daily Solu-Medrol as above Flutter valve Azithromycin 500 mg daily for 3 days (4) Acute metabolic encephalopathy: Plan: CT head pending ? CO2 retention - if he improves overnight likely due to this ? infectious due to COVID ? iatrogenic - stop tramadol Suspect multifactorial as above (5) Hallucinations: Plan: See above for acute metabolic encephalopathy Zyprexa as needed if at risk to self or others (6) Acquired elevated hemidiaphragm: Plan: secondary to prior neck surgery - ?consolidation vs. atelectasis above this - CT chest (7) Hypertension: Plan: Continue diltiazem and lisinopril via PEG (8) Hypothyroidism: Plan: Continue levothyroxine via PEG TSH WNL in September 2022 (9) S/P percutaneous endoscopic gastrostomy (PEG) tube placement: Plan: 2/2 aspiration risk NPO Consult dietary for PEG tube feedings (10) Peripheral neuropathy: Plan: Continue gabapentin Plan VTE Prophylaxis - deferred pending CT for PE Diet - strict n.p.o. -all medications should be given via his PEG tube Disposition - admit to PCU Admission and Anticipated Discharge Date Admission Date: October 13, 2022 Results & Data Results & Data ([facility]) Vital Signs (Past 12 Hours) Vital Signs Temp Pulse Pulse Resp BP Pulse Ox O2 Del Method 10/14/22 07:45 74 18 91 10/14/22 07:43 74 18 90 BiPAP 10/14/22 07:05 36.7 C 76 20 101/56 L 92 BiPAP 10/14/22 03:55 68 19 96 10/14/22 02:39 36.7 C 73 18 139/70 95 BiPAP 10/14/22 02:01 18 93 10/13/22 22:55 36.8 C 124/66 10/13/22 22:29 91 H 12 90 10/13/22 20:53 81 24 95 FiO2 10/14/22 07:45 85 10/14/22 07:43 85 10/14/22 07:05 10/14/22 03:55 95 10/14/22 02:39 10/14/22 02:01 95 10/13/22 22:55 10/13/22 22:29 95 10/13/22 20:53 80 PG Care Time/CCT Total # of Minutes Spent Total Time Spent with Patient: Total time spent is greater than 50% in coordination of care (as documented) at patient's floor/unit and/or counseling patient: Coding Diagnoses Acute on chronic respiratory failure with hypoxia and hypercapnia J96.21; J96.22 COVID-19 U07.1 COPD exacerbation J44.1 Acute metabolic encephalopathy G93.41 Hallucinations R44.3 Acquired elevated hemidiaphragm J98.6 Hypertension I10 Hypothyroidism E03.9 S/P percutaneous endoscopic gastrostomy (PEG) tube placement Z93.1 Peripheral neuropathy G62.9
[2022-10-14] MEDS ORDERED: MELOXICAM 7.5 MG TAB PEG SCH (09:00)
[2022-10-14] MEDS ORDERED: GABAPENTIN 250 MG/5 ML 470 ML BTL PEG SCH (09:00)
[2022-10-14] MEDS ORDERED: GABAPENTIN 150 MG/3 ML UDP PO SCH (09:00)
[2022-10-14] MEDS ORDERED: ENOXAPARIN INJ 40 MG/0.4 ML SYR SQ SCH (09:00)
[2022-10-14] MEDS ORDERED: PANTOprazole 40 MG TAB PEG SCH (09:00)
[2022-10-14] MEDS ORDERED: LANSOPRAZOLE 30 MG SOLTAB PEG SCH (09:00)
[2022-10-14] MEDS ORDERED: ASPIRIN 81 MG CHEW PEG SCH (09:00)
[2022-10-14] MEDS ORDERED: lisinopril 20 MG TAB PEG SCH (09:00)
[2022-10-14] MEDS ORDERED: ASPIRIN 81 MG ECTAB PO SCH (09:00)
[2022-10-14] MEDS ORDERED: RAPID SEQUENCE INDUCTION BAG ONE (10:06)
[2022-10-14] MEDS ORDERED: PROPOFOL IV EMULSION 10 MG/ML 100 ML VIAL IV ONE ×2 (10:09→12:15)
[2022-10-14] MEDS: propofoL 1,000 MG/100 ML VIAL IV SCH ×3 (10:38→15:10)
[2022-10-14] MEDS: PROPOFOL BOLUS FROM BAG IV PRN ×3 (10:38→10:54)
--- NOTE | 2022-10-14 10:41 | Communication Note ---
Date of Service: October 14, 2022 At 1025,rquested by Dr Stewart to intubate patient in respiratory failure and w/ difficult airway 2ndary to radiation Tx of neck.Using glidescope #4 epiglottis seen; unable to visualize VC's;was able to manipulate #6.0 ETT under epiglottis into and through glottic opening of VC's;taped ETT @ 23 cm dinah;+ ETCO2;atraumatic intubation.
[2022-10-14] MEDS ORDERED: PHENYLEPHRINE 100MCG/ML 5ML SYR ONE (10:45)
[2022-10-14] MEDS ORDERED: NOREPINEPHRINE/D5W 4 MG/250 ML IV ONE (10:45)
[2022-10-14] MEDS ORDERED: STAT IV Infusion **Titration per Protocol STA ×4 (10:49→12:38)
[2022-10-14] MEDS: NOREPINEPHRINE/D5W 4 MG/250 ML PLCT IV SCH ×2 (10:50→13:42)
[2022-10-14] MEDS ORDERED: PHENYLEPHRINE HCL 20 MG in DEXTROSE 5% 500 ML IV SCH (11:00)
--- NOTE | 2022-10-14 11:39 | Procedure Note ---
Procedure Note Date of Service October 14, 2022 Note CENTRAL LINE PROCEDURE NOTE: Procedure: Central Line Placement Provider: Joshua Stewart MD Indication: Central Drug Administration, Poor Venous Access, Multiple Lab Draws Necessary, etc. Anesthesia: 5 cc 1% lidocaine locally Site: Right subclavian Procedure was emergent. Patient was obtunded and unable to provide consent. Discussed with daughter at bedside and obtained verbal consent for intubation, central line, and arterial line A time-out was completed verifying correct patient, procedure, site, positioning, and implants(s) or special equipment if applicable. Patients right clavicular area was cleansed and draped in the typical sterile fashion using Chloraprep. Landmarks were identified however the patient had had previous neck surgery and the normal anatomic landmarks were deranged. The superficial tissue was anesthetized using 5 mL of 1% lidocaine without epinephrine under direct visualization with the ultrasound. After adequate anesthetization was achieved, the right subclavian vein was cannulated using an introducer needle on a syringe. Good venous blood return was maintained prior to removal of syringe from introducer needle. Using Seldinger Technique, a guide wire was advanced through the introducer needle without resistance. The introducer needle was removed. A small incision was made in penetrating fashion at the guide wire insertion site utilizing an 11 blade scalpel. The dilator was advanced to the vessel without resistance. The dilator was exchanged for the triple lumen catheter which was advanced into the vessel without resistance. The guide wire was removed intact from the catheter without issue. Claves were placed on each catheter tip with confirmation of good blood flow from each lumen. Each port was easily flushed with sterile saline. The catheter was placed at 18 cm and sut[address] in place. BioPatch was applied to the catheter and a sterile Tegaderm dressing was applied over the catheter with careful attention to sterility. Patient tolerated procedure well. No immediate complications were met. Post procedure x-ray was completed, placement was appropriate and no pneumothorax was noted. Estimated blood loss: 10 mL Coding CPT Codes Tubes, Drains, and Vasc Access - Tubes, Drains, and Vasc Access: [id number] Place catheter in vein superior or inferior vena cava ([id number]) [facility] Procedure Codes (Charges) Tubes, Drains, and Vasc Access Procedure 1: Tubes, Drains, and Vasc Access: [id number] Place catheter in vein superior or inferior vena cava
--- NOTE | 2022-10-14 11:39 | XRay Report ---
SINGLE VIEW CHEST CLINICAL HISTORY: Respiratory failure. Intubation. FINDINGS: 2 AP, portable, supine chest radiographs are compared to study dated 10/13/2022. Correlation is made with chest CT dated 09/06/2022. The examination is degraded by portable technique and patient rotation. A right subclavian central venous catheter has been placed. The tip of the catheter proje cts over the cavoatrial junction. An endotracheal tube has been placed. The tip of the catheter proje cts at the thoracic inlet approximately 6 cm above the walter. The heart is top normal for projection . The pulmonary vasculature appears congested. There is chronic elevation of the left hemidiaphragm w ith bibasilar scarring/atelectasis. No pneumothorax is seen. The skeletal structures are osteopenic. The bony thorax is grossly intact. IMPRESSION: 1. An endotracheal tube and a central venous catheter have been placed as above. No pneumothorax is s een post procedure. 2. Pulmonary vascular congestion. 3. No airspace consolidation or large pleural effusion is identified. ACT 112: Negative or not required by law. Electronically signed by: Cleve Hampton M.D. 10/14/2022 11:37 AM
--- NOTE | 2022-10-14 11:49 | Procedure Note ---
Procedure Note Date of Service October 14, 2022 Note ARTERIAL LINE PROCEDURE NOTE: Procedure: Arterial Line Placement Provider: Joshua Stewart MD Indication: Monitoring on Pressors Procedure was emergent. Patient unable to provide consent. No family immediately available A time-out was completed verifying correct patient, procedure, site, positioning, and implant(s) or special equipment if applicable. Allens test was performed to ensure adequate perfusion. Patients left wrist was prepped and draped in the usual sterile fashion. A 20g Arrow arterial line was introduced into the left radial artery. Catheter was threaded, and the needle was removed with appropriate blood return. Good waveform was observed. The patient tolerated the procedure well. Blood Loss: Minimal Complications: None Coding CPT Codes Tubes, Drains, and Vasc Access - Tubes, Drains, and Vasc Access: [id number] Insertion Catheter, Artery ([id number]) [facility] Procedure Codes (Charges) Tubes, Drains, and Vasc Access Procedure 1: Tubes, Drains, and Vasc Access: [id number] Insertion Catheter, Artery
--- NOTE | 2022-10-14 11:51 | Critical Care Consultation ---
Date of Consultation October 14, 2022 Assessment & Plan (1) Acute on chronic respiratory failure with hypoxia and hypercapnia: Reason Critically Ill: 72-year-old male presenting with acute on chronic hypoxic respiratory failure in the setting of COVID-19 infection requiring emergent endotracheal intubation with need for ENT evaluation for likely tracheostomy tube placement * After patient was intubated, I did reach out to ENT clinics locally including [facility] and [facility]. Either institution had coverage of ENT this week. * 1101: Spoke with the patient's , Melissa ([phone]). Provided update and need for transfer to tertiary care for ENT evaluation for possible trach. She is in agreement. * 1123: Spoke with Dr. Carter at [facility] [place] No beds available at this time. * 11:55: Called . She is agreeable to transport to [facility] network as she reports her has had orthopedic surgeries there in the past. * 1205: Reached out to [facility]. Spoke with Dr. Groves from the ICU. He accepts the patient in transfer. NEURO - * Metabolic Encephalopathy: * Likely multifactorial in the setting of COPD exacerbation with hypoxia and profound hypercapnia. * Mental status declined to the point that he is unable to protect airway and requires emergent endotracheal intubation. * Will monitor patient's mental status as we are hopefully able to evaluate more effectively now. * Consider brain imaging, however would be cautious moving the patient at this point given fragility of airway and current concerns for catastrophic airway in the event of possible dislodgment. CARDIAC/VASCULAR - * Hypotension: * Likely related to sedation as patient had no issues with blood pressure control prior to need for intubation. * Support blood pressure with Jovon-Synephrine drip. * Hold antihypertensive medications for now. * Monitor on telemetry. RESPIRATORY - * Acute on chronic hypoxemic respiratory failure with hypercapnia: * Patient chronically on 3 L nasal cannula. 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 * Patient did not tolerate BiPAP well overnight and mental status continued to decline resulting in need for emergent endotracheal intubation. * Extremely difficult airway with poor visualization of upper airway structures likely related to prior history of radical head/neck surgery. * Patient had been told previously that he would likely benefit from trach placement moving forward. At this point, the issue has been pushed and patient likely needs evaluated from ENT perspective for trach placement for definitive airway management in this chronically ill patient with multiple comorbidities contributing to his respiratory failure. * Current ventilator settings: AC/35/300/12/50% GI/NUTRITION - * G-tube placement: * Placed for feedings as he continues to aspirate. * That being said, patient has been still taking PO as family was observed bringing in food for the patient during last admission. RENAL/LYTES - * No significant electrolyte derangements. * IVF: LR @ 100 mL/hr - * Romero in place - Strict I&Os. ENDO - * No h/o DM or Thyroid Dz * BSGs per unit protocol. ISS --> gtt per unit policy. HEME - * Stable H&H ID - * Covid-19 with concerns for recurrent aspiration pneumonitis: * CXR w/o infiltrates. * Initially placed on Azithromycin/Remdesivir/Steroids. * Likely not requiring antibiotics from a pulmonary source at this time. * PCT/Lactate negative. * Leukocytosis likely 2/2 demargination in the setting of recent high dose steroid administration. LINES/IV ACCESS - * PIVs x1 * RIGHT Subclavian CVL * LEFT Radial Arterial Line * 6-0 ETT * Romero DVT PROPHYLAXIS - * Lovenox * SCDs I have personally spent 80 minutes of critical care time in the direct management of this patient. This is a life/limb threatening event. This includes time spent evaluating patient, direct bedside care, chart review, placing orders, interpretation of diagnostic studies, discussion with consultants, patient, and family members, as well as other required patient management activities. This time is exclusive of all separately billable procedures, and teaching time and separate from and in addition to any other critical care service time. Thank you for allowing us to participate in the care of this patient. Please refer to my attending physician's documentation for any further recommendations. (2) Difficult airway for intubation: (3) Acute metabolic encephalopathy: (4) COPD exacerbation: (5) COVID-19: (6) Acquired elevated hemidiaphragm: Supervising Physician Co-Signing Physician Notes Patient seen and examined. EMR reviewed. Discussed with hospitalist and with BARBARA extensively. Assessed the patient immediately on arrival to the ICU. He appeared to be receiving adequate volumes with noninvasive positive pressure ventilation. A follow-up blood gas was obtained which unfortunately demonstrated no significant improvement in his hypercarbic respiratory failure. I had contacted the patient's by phone. I advised them that given his morbid obesity, baseline hypercarbic respiratory failure (baseline CO2 appears to run about 80), and elevated hemidiaphragm with a history of radical neck, if the patient were to pursue intubation it would be highly likely he would need tracheostomy. The patient's states that she and her have talked about this previously. Apparently an outside provider recommended tracheostomy sometime ago. The patient apparently would be comfortable with a tracheostomy going forward. He had 1 after his prior surgery. The also related that the patient had a difficult intubation 5 years ago in the setting of EGD for his feeding tube placement. Given the failure of the patient to improve with noninvasive positive pressure ventilation and persistent altered mental status, decision was made to intubate the patient. He was preoxygenated using the BiPAP machine. Sedation was administered using etomidate. I attempted video laryngoscopy however his anatomy was significantly distorted and I was unable to get a view. We attempted fiberoptic intubation however we were unable to visualize the vocal cords with the scope. The patient was able to be oxygenated and ventilated using jix-aiyrh-iaol ventilation. At that point time I called urgently for anesthesia. They responded promptly and with their assistance we were able to get a 6 oh endotracheal tube into the airway. I performed bronchoscopy after the tube was in place. Please refer to separate procedure notes. Central line and arterial lines were placed. The patient did have a decrease in his blood pressure which required administration of Jovon-Synephrine pushes as well as initiation of norepinephrine infusion. We attempted to contact ear nose and throat here locally but apparently there is no coverage. Given the need to pursue definitive airway in this patient, I think he needs to be transferred to a facility that has ENT available. We will contact tertiary care facilities and try and get him accepted and managed. Given his morbid obesity and elevated hemidiaphragm, would not recommend disc ontinuation of the tracheostomy as I think this needs to be a long-term solution for the patient. He may require nocturnal ventilation through the tracheostomy. Will await respiratory cultures from the bronchoscopy. Empiric antibiotics have been initiated. Continue sedation with propofol, Precedex, and as needed Versed. Family was updated. A total of 180 minutes was spent in evaluation management stabilization of this patient exclusive of procedures by the PA and myself History of Present Illness Reason for Consultation: Acute on chronic hypoxic respiratory failure with hypercapnia, difficult airway, COVID-positive Attending Physician: Kathryn Metcalf MD History of Present Illness Patient is an unfortunate 72-year-old male with a significant past medical history of COPD chronically on 3 L, hypertension, hyperlipidemia, hypothyroid state, morbid obesity, history of radical head and neck surgery secondary to tonsillar cancer, chronically elevated LEFT-sided hemidiaphragm presumed to be related to prior surgical intervention, recurrent aspiration pneumonia, and history of G-tube placement for nutritional supplementation. Patient initially admitted to this institution on 10/13 with chief complaint of shortness of breath and worsening hypoxemia. Patient desaturated the emergency department and was eventually placed on BiPAP. There was presumed to be a degree of metabolic encephalopathy. Patient also noted to be COVID-19 positive. Throughout the night, the patient's mental status continued to wax and wane. He did require Zyprexa dosing throughout the night. Earliest morning, the patient was noted to be obtunded by nursing staff on assessment. ABG in the morning demonstrated a CO2 of greater than 120. Patient was brought to the ICU and adjustments were made to BiPAP settings. CO2 remained greater than 120. Decision was made for emergent endotracheal intubation. Please see separate note. Patient unable to contribute to history of present illness secondary to altered mental status. Allergies Allergy/AdvReac Type Severity Reaction Status Date / Time amoxicillin [From Augmentin] Allergy Unknown Verified 10/13/22 14:55 clavulanic acid Allergy Unknown Verified 10/13/22 14:55 [From Augmentin] levofloxacin [From Levaquin] AdvReac Intermediate Severe Verified 10/13/22 14:55 ankle muscle pain budesonide AdvReac Mild Thrush Verified 10/13/22 14:55 fluticasone AdvReac Mild Thrush Verified 10/13/22 14:55 [From Advair Diskus] salmeterol AdvReac Mild Thrush Verified 10/13/22 14:55 [From Advair Diskus] Home Medications Medication Instructions Recorded Confirmed Type pantoprazole 40 mg tablet,delayed 40 mg PO QAM 09/28/18 10/13/22 History release (Protonix) albuterol sulfate 90 mcg/actuation 2 puff inhalation QID PRN 08/18/22 01/10/23 History aerosol inhaler shortness of breath or wheezing gabapentin 300 mg capsule 300 mg feeding tube QAM 05/21/22 10/13/22 History gabapentin 300 mg capsule 600 mg feeding tube QPM 05/21/22 10/13/22 History levothyroxine 175 mcg tablet 175 mcg feeding tube DAILYBB 05/21/22 10/13/22 History lisinopril 20 mg tablet 20 mg feeding tube QAM 05/21/22 10/13/22 History mupirocin 2 % topical ointment 1 applic topical TID PRN Dry Skin 05/21/22 10/13/22 History aspirin 81 mg capsule 81 mg feeding tube QAM 09/06/22 10/13/22 History meloxicam 15 mg tablet 15 mg feeding tube QAM 09/06/22 10/13/22 History acetylcysteine 100 mg/mL (10 %) 5 ml inhalation BIDR #90 mL 09/07/22 10/13/22 Rx solution guaifenesin 100 mg/5 mL oral liquid 200 mg (10 mL) PEG Q6H PRN 09/07/22 10/13/22 Rx congestion #473 mL diltiazem HCl 30 mg tablet 30 mg feeding tube Q8H 10/13/22 10/13/22 History ipratropium 0.5 mg-albuterol 3 mg 3 ml inhalation QID PRN Shortness 10/13/22 10/13/22 History (2.5 mg base)/3 mL nebulization Of Breath Or Wheezing soln Patient History Medical History Arthritis BPH (benign prostatic hyperplasia) Claustrophobia Pt states "has doctor's excuse stating cannot wear mask" COPD (chronic obstructive pulmonary disease) Degenerative disc disease Diaphragmatic paralysis Left side, 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 Has G-tube in place due to this, but chooses to continue to eat solid foods for comfort." History of cancer tonsil s/p 42 radiation treatments (1999) Hypertension Hypothyroidism Obesity On home oxygen therapy 3L via NC PRN/HS Sleep apnea No device (hx CPAP in past) Surgical History History of colonoscopy History of difficult intubation EGD + attempted PEG tube placement: 04/10/19: Grade view 2, Glidescope#4, ETT 6.5 at [facility] History of esophagogastroduodenoscopy (EGD) History of tooth extraction Hx of excision of mass Cervical region after radiation treatments (1999) S/P percutaneous endoscopic gastrostomy (PEG) tube placement Laparoscopic placement of Gastrosomy tube (04/20/19): Grade view 2, Glidescope#4, ETT 6.5 at [facility] Family History Other Hypertension Lung disease No family history of adverse response to anesthesia Social History Smoking Status: Never smoker Second Hand Exposure: No; Hx Alcohol Use: No Hx Substance Use: No Preferred Language: Uruguayan Communication Ability: Effective Grocery Specialist Required: No Beliefs That Will Affect Care: None marital status: Current Living Situation: Spouse current occupational status: retired How many Children do You have: 1 Feels Safe at Home: Yes Safety Concerns: Feels Safe At This Time Assistive Devices: Scooter/Electric Scooter Review of Systems Review of Systems: Unable to assess secondary to altered mental status. Physical Exam Physical Exam: VITAL SIGNS - Vital signs and nursing notes were reviewed. GENERAL - 72-year-old male appearing his stated age who is obtunded on BiPAP. HEAD - NC/AT. EYES - PERRL but pinpoint. MOUTH/OROPHARYNX - Without perioral cyanosis. Buccal mucosa pink and dry. NECK - Prior surgical site to the LEFT sided neck. Neck with FROM. No nuchal rigidity. LUNGS - Poor inspiratory effort. Distant breath sounds. CARDIAC - RRR with S1/S2. No murmur, rubs, or gallops appreciated. ABDOMEN - Abdominal contour obese without pulsations or visible masses. G tube in place in the mid abdomen. EXTREMITIES - No clubbing or peripheral cyanosis. No pretibial edema present. +3/5 radial and dorsalis pedis pulses palpated throughout. NEUROLOGIC - No focal neurological deficits on exam. Obtunded. Responds to noxious stimuli, but without purpose. Results & Data Results & Data ([facility]) Vital Signs (Past 12 Hours) Vital Signs Temp Pulse Pulse Resp BP Pulse Ox O2 Del Method 10/14/22 09:57 74 10/14/22 08:59 84 28 H 10/14/22 07:45 74 18 91 10/14/22 07:43 74 18 90 BiPAP 10/14/22 07:05 36.7 C 76 20 101/56 L 92 BiPAP 10/14/22 03:55 68 19 96 10/14/22 02:39 36.7 C 73 18 139/70 95 BiPAP 10/14/22 02:01 18 93 FiO2 10/14/22 09:57 10/14/22 08:59 70 10/14/22 07:45 85 10/14/22 07:43 85 10/14/22 07:05 10/14/22 03:55 95 10/14/22 02:39 10/14/22 02:01 95 Coding Level of Care Code Critical Care 1st 30-74 mins Diagnoses Acute on chronic respiratory failure with hypoxia and hypercapnia J96.21; J96.22 Difficult airway for intubation T88.4XXA Acute metabolic encephalopathy G93.41 COPD exacerbation J44.1 COVID-19 U07.1 Acquired elevated hemidiaphragm J98.6 Time Spent (min) 180
--- NOTE | 2022-10-14 11:51 | Procedure Note ---
Procedure Note Date of Service October 14, 2022 Note Procedure: Fiberoptic bronchoscopy Therapeutic aspiration of secretions, initial/subsequent Provider: Joshua Stewart MD Consent: Signed by patient and timeout verified prior to procedure. Patient had just been intubated in the ICU there were copious secretions emanating from the endotracheal tube and bronchoscopy was required to confirm placement of the endotracheal tube as well as clear secretions. Patient was placed on 100% FiO2. The Bodai adapter was placed on the existing endotracheal tube and the patient remained on the ventilator circuit. A pediatric disposable fiberoptic scope was advanced through the endotracheal tube via the Bodai adapter. There were copious thick dark brown secretions present within the endotracheal tube as well as trachea. These were collected for microbiologic analysis with saline lavage The bronchoscope was then removed from the airways. The patient tolerated the procedure well without obvious complication. Patient was returned to the recovery room. Impression: 1. Endotracheal tube in good position approximately 2 to 3 cm above the walter. 2. Copious dark brown mucoid secretions present within the trachea and mainstem bronchi. Await microbiologic analysis. 3. Extensive dynamic airway collapse with exhalation. 4. No endobronchial lesions or abnormalities identified Coding CPT Codes Pulmonary/Thoracic - Pulmonary and Thoracic: 82629 Bronchoscopy, clear airways ([id number]) [facility] Procedure Codes (Charges) Pulmonary/Thoracic Procedure 1: Pulmonary and Thoracic: 78802 Bronchoscopy, clear airways
[2022-10-14] MEDS ORDERED: REMDESIVIR 100 MG in SODIUM CHLORIDE 0.9% 230 ML IV SCH (12:00)
[2022-10-14 12:02] LABS: iSTAT Art Bld Gas pCO2 Correct 100 mmHg (35-46); iSTAT Art Bld Gas pH Corrected 7.287 (7.35-7.45); iSTAT Arterial Blood Gas HCO3 48 meg/L (19-24); iSTAT Arterial Blood Gas pCO2 106 mmHg (35-46); iSTAT Arterial Blood Gas pH 7.27 (7.35-7.45); iSTAT Arterial Blood Gas pO2 199 mmHg (80-95); iSTAT Arterial Blood Gas pO2 C 192; iSTAT Carbon Dioxide > 50 mmol/L (24-31); iSTAT FiO2 100 %; iSTAT Hematocrit 38 % (42-52); iSTAT Hemoglobin 12.9 g/dl (14.0-18.0); iSTAT Site Art Line; iSTAT Sodium 138 mmol/L (135-144)
[2022-10-14] MEDS ORDERED: MIDAZOLAM HCL 1 MG/ML 2ML VIAL IV PRN (12:38)
[2022-10-14] MEDS: PHENYLEPHRINE HCL 20 MG in DEXTROSE 5% 500 ML IV SCH ×2 (12:39→17:03)
[2022-10-14 12:40] LABS: iSTAT Allen Test Pass; iSTAT Art Bld Gas pH Corrected 7.137 (7.35-7.45); iSTAT Arterial Blood Gas pCO2 < 10 mmHg (35-46); iSTAT Arterial Blood Gas pH 7.12 (7.35-7.45); iSTAT Arterial Blood Gas pO2 75 mmHg (80-95); iSTAT Arterial Blood Gas pO2 C 68; iSTAT Carbon Dioxide < 5 mmol/L (24-31); iSTAT FiO2 0 %; iSTAT Hematocrit 43 % (42-52); iSTAT Hemoglobin 14.6 g/dl (14.0-18.0); iSTAT Site R Radial; iSTAT Sodium 138 mmol/L (135-144)
[2022-10-14] MEDS: dexMEDEtomidine 200 MCG/50 ML BAG IV SCH ×2 (13:16→17:06)
[2022-10-14] MEDS: TUBE FEEDING WATER FLUSH GT SCH (13:38)
[2022-10-14] MEDS ORDERED: cefTRIAXone SODIUM 2,000 MG in DEXTROSE 5% 50 ML IV SCH (15:00)
[2022-10-14] MEDS ORDERED: TUBE FEEDING WATER FLUSH GT SCH (16:00)
[2022-10-14] MEDS ORDERED: ETOMIDATE 2 MG/ML 20 ML VIAL IV ONE (17:04)
[2022-10-14] MEDS ORDERED: MIDAZOLAM HCL 5 MG/ML VIAL IV ONE (17:04)
--- NOTE | 2022-10-14 18:59 | Discharge Summary ---
Date of Service October 14, 2022 Admission HPI Per Admitting Provider Kelsey Rush is a 72-year-old male with COPD, left diaphragmatic paralysis following neck surgery with chronic hypoxic hypercapnic respiratory failure on 3 LPM O2 at home who presents to the ER with shortness of breath. Majority of history obtained from his and daughter at bedside due to respiratory distress from patient and confusion while on BiPAP. He was recently admitted to [facility] from September 06 to 2021 with aspiration pneumonia. Patient has a chronic aspiration risk and previously advised to take nothing by mouth although does not stick by this and was eating Estonian fries and a cheeseburger last admission. He was treated with Zosyn and discharged on Augmentin and a tapering course of prednisone for his COPD. Managed to get back to his baseline. However started to deteriorate on Wednesday (4 days ago). Generally not feeling well, more confused, delusions and visual hallucinations started. He became progressively more short of breath and O2 sats reportedly dropped to the mid 60s. Coughing more with thicker sputum. However on arriving to the ER his O2 sats were initially 90% on his home 3LPM O2 but upon arriving in the room via wheelchair his O2 sats were noted to have dropped with good waveform to 68%. In the ER he was therefore placed on BiPAP 07/07, RR 12, FiO2 60% and now maintaining saturations > 90%. He is intermittently confused and has been trying to get out of bed but clearly unable to support his own weight. SARS COV-2 PCR positive. He is not vaccinated. Discharge Data Allergies Allergy/AdvReac Type Severity Reaction Status Date / Time amoxicillin [From Augmentin] Allergy Unknown Verified 10/13/22 14:55 clavulanic acid Allergy Unknown Verified 10/13/22 14:55 [From Augmentin] levofloxacin [From Levaquin] AdvReac Intermediate Severe Verified 10/13/22 14:55 ankle muscle pain budesonide AdvReac Mild Thrush Verified 10/13/22 14:55 fluticasone AdvReac Mild Thrush Verified 10/13/22 14:55 [From Advair Diskus] salmeterol AdvReac Mild Thrush Verified 10/13/22 14:55 [From Advair Diskus] Consultations 10/13/22 11:46 ED Decision to Admit Stat 10/14/22 08:39 Consult Blood Bank Technician Stat 10/14/22 12:46 Burn CD for patient Stat Hospital Course (1) Acute on chronic respiratory failure with hypoxia and hypercapnia: Suspect COVID-19 with COPD exacerbation. Difficult to rule out aspiration pneumonitis however no pneumonia suspected based on white blood count and negative procalcitonin. Will repeat procalcitonin in 48 hours to continue to assess for secondary bacterial infection. Continue BiPAP overnight to help with acute hypercapnia causing acute respiratory acidosis CT for PE pending (2) COVID-19: Unvaccinated 1st day of illness Oct 09 BiPAP on admission mainly for hypercapnia, CRP 3.11 on admission. Isolation precautions Solu-medrol chosen over dexamethasone due to concurrent COPD exacerbation. Continue at 40 mg IV every 8 hourly. Start remdesivir and continue for 5 days or during hospitalization (3) COPD exacerbation: DuoNebs 4 times daily Solu-Medrol as above Flutter valve Azithromycin 500 mg daily for 3 days (4) Acute metabolic encephalopathy: CT head pending ? CO2 retention - if he improves overnight likely due to this ? infectious due to COVID ? iatrogenic - stop tramadol Suspect multifactorial as above (5) Hallucinations: See above for acute metabolic encephalopathy Zyprexa as needed if at risk to self or others (6) Acquired elevated hemidiaphragm: secondary to prior neck surgery - ?consolidation vs. atelectasis above this - CT chest (7) Hypertension: Continue diltiazem and lisinopril via PEG (8) Hypothyroidism: Continue levothyroxine via PEG TSH WNL in September 2022 (9) S/P percutaneous endoscopic gastrostomy (PEG) tube placement: 2/2 aspiration risk NPO Consult dietary for PEG tube feedings (10) Peripheral neuropathy: Continue gabapentin (11) Difficult airway for intubation: Plan VTE Prophylaxis - deferred pending CT for PE Diet - strict n.p.o. -all medications should be given via his PEG tube Disposition - admit to PCU Discharge Plan Discharge Items Patient Disposition: Transfer Acute Care Hospital Reason For Visit: COVID-19, ACUTE HYPOXIC HYPERCAPNIC RESPITORY FAIL Discharge Diagnosis: Acute on chronic hypoxic respiratory failure with hypercapnia, difficult airway, COVID-19 Condition on Discharge: Serious Activity: Per Instructions section Non-emergency contact: Primary Care Provider Call non-emergency contact if: your symptoms worsen Follow-up/Referrals: Jovanna Carson CRNP [Primary Care Provider] - Diet: Other - See Diet Comment Addtl Attending Provider Instructions: Transferred to [facility] Pending Studies at Discharge: No Stand-Alone Forms: My [facility] Skilled Items Patient informed of condition?: No ( made aware. Patient with AMS and now sedated.) DNR: No Discharge Level of Care: Other Communicable Disease: No Discharge Prognosis: Stable Lines: Peripheral IV Urinary Catheter: Yes Medications and DC Order Prescriptions: Continued gabapentin 300 mg capsule 600 mg feeding tube QPM gabapentin 300 mg capsule 300 mg feeding tube QAM mupirocin 2 % ointment 1 applic topical TID PRN (Reason: Dry Skin) albuterol sulfate 90 mcg/actuation HFA aerosol inhaler 2 puff inhalation QID PRN (Reason: shortness of breath or wheezing) pantoprazole [Protonix] 40 mg Tablet,Delayed Release (Dr/Ec) 40 mg PO QAM Label Comments: VIA FEEDING TUBE Rx Instructions: PER FEEDING TUBE lisinopril 20 mg tablet 20 mg feeding tube QAM levothyroxine 175 mcg tablet 175 mcg feeding tube DAILYBB meloxicam 15 mg tablet 15 mg feeding tube QAM aspirin 81 mg Capsule 81 mg feeding tube QAM acetylcysteine 100 mg/mL (10 %) Solution 5 ml inhalation BIDR Qty: 90 0RF guaifenesin 100 mg/5 mL Liquid 200 mg PEG Q6H PRN (Reason: congestion) Qty: 473 0RF ipratropium-albuterol 0.5 mg-3 mg(2.5 mg base)/3 mL solution for nebulization 3 ml INHALATION QID PRN (Reason: Shortness Of Breath Or Wheezing) diltiazem HCl 30 mg tablet 30 mg feeding tube Q8H Discharge Orders: Discharge Order (Routine); Ordered 10/14/22 Ordered By: Marcos Paz Admission Data Admit Date/Time: 10/13/22 12:11 Attending Provider: Kathryn Metcalf Admit Provider: Ramón Gomez Primary Care Provider: Jovanna Carson Other Providers: Joshua Stewart ; Ramón Gomez Coding Diagnoses Acute on chronic respiratory failure with hypoxia and hypercapnia J96.21; J96.22 COVID-19 U07.1 COPD exacerbation J44.1 Acute metabolic encephalopathy G93.41 Hallucinations R44.3 Acquired elevated hemidiaphragm J98.6 Hypertension I10 Hypothyroidism E03.9 S/P percutaneous endoscopic gastrostomy (PEG) tube placement Z93.1 Peripheral neuropathy G62.9 Difficult airway for intubation T88.4XXA
== END 2022-10-14 17:05 | disposition short-term general hospital (02) | DRG 208 ==
LOC: ED 09:15 → SUATTDRO 12:11 → EDINP 12:11 → 2S 14:21 → 1E 10-14 09:22